=== PATIENT | female | born 1950 | race Caucasian/White ===

== ENCOUNTER 2023-07-15 13:02 | Outpatient (AMB) | payer MEDICARE, OTHER, SELFPAY ==
--- NOTE | 2023-07-15 13:03 | A.OFFPSYCH_ITS ---
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 She describes feeling on edge and waiting for the next bad thing to happen. She feels sad at times and grieves her daughters during holidays especially. She feels overwhelmed at times being the primary support to her living daughter who can be very impulsive; pt is also primary support to her sister who had a stroke and is very depressed. Pt feel strong obligation to call sister every day and often finds it takes a great deal of energy from her. She is compliant with meds and feel they are helping. She reports no side effects, less overwhelmed; No SI no HI. sleeping well with Trazodone but needs 200 mg to sleep through the night; She feels tired most days; she does have some intermittent shortness of breath due to her lung surgery; she had a low dose pet scan and has no cancer. She reports no dizziness; she is taking ativan prn about 1 times every two weeks if needed for panic attack if needed; she rarely has panic attacks and takes the ativan approximately once a month or less often; Denies SI or HI. She does have good support from her and synagogue. she attends a women support group on a regular basis; she takes walks with to cope with anxiety. Past Psychiatric History: 1-[facility] age 22 depression 1- PHP in 2019 referred by [facility], no SI x 2 weeks, 4 months ago depression increased severely, new onset of severe anxiety, started [facility] php and completed 20 days before she really felt much better; depression was very deep, Dr. Cleveland made a med change there, she reports she had passive SI for weeks before going, no active SI; depression symptoms included not getting out of bed, not eating, no interest, low energy, low motivation; severe anxiety with anxiety attacks Pt says she has always had depression her whole life; had a severe bout of post depression at age 22 and was hospitalized at [facility] [place]; ,no hospitalizations after that; lost her first child 21 yrs ago when her daughter in a MVA; She lost another daughter 2 yrs ago from an accidental overdose on heroin and fentanyl; her daughter Patsy of an opiate overdose on mother's day; her daughter had been doing well and in recovery and her was a shock; her was having open heart surgery at the same time and her older daughter was going through a divorce; pt reports she felt numb and probably didn't grieve; she lost 18 lbs in 3 months, 25 years on Prozac which worked well up until a few months ago; symptoms when very depression - not getting out of bed, no lunch with friends Panic attacks: Yes Agoraphobia: No Separation anxiety disorder: No Social phobia: No Specific phobia: No Hypochondriasis: No Body dysmorphic disorder: No Obsessive compulsive disorder: No Generalized anxiety: Yes Post traumatic stress disorder: Yes Acute stress disorder: No Previous psychiatric history: Yes Previous inpatient psychiatric hospitalization: Yes Other previous psychiatric treatment programs: partial hospital program History of suicidal ideation: Yes History of suicide attempt: No Medically hospitalized: No History of self injurious behavior: No History of violence: No Current/previous psychiatrist: elias Current/previous therapist: none Subjective Subjective Subjective Medication Compliance: Yes Side effects from medications: No Review of Systems Medical Review of Systems: unchanged Mental Status Exam Mental Status Exam Patient Appearance: Well Grooomed and Appropriate Patient Orientation: Person, Place, Time and Situation Level of Consciousness: Awake and Appropriate Patient Behavior: Appropriate and Talkative Mood Description: Anxious and Sad Affect Description: Constricted and Sad Patient Cognition Impaired: No Ability to Follow Directions: Excellent Speech Pattern: Clear and Coherent Memory Description: Intact Hallucinations: None Delusions: Not Present Thought Process: Intact and Goal Oriented Thought Content: positive for Intact and positive for Goal Oriented Judgement: Good Assessment and Plan Assessment & Plan (1) Generalized anxiety disorder: Code(s): F41.1 - Generalized anxiety disorder Plan pt continues to struggle with anxiety and grief plan trial of gabapentin 300mg tid prn reduce to bid if sedation Medications: New aripiprazole 2 mg PO DAILY 90 tabs 1RF escitalopram oxalate 20 mg PO DAILY 90 tabs 1RF lorazepam 0.5 mg PO BID PRN 60 tabs 3RF anxiety trazodone (2 x 100 mg) watch for over-sedation 180 tabs 1RF sleep bupropion HCl 300 mg PO DAILY 90 tabs 1RF gabapentin 300 mg PO TID 90 caps 3RF Counseling and coordination of Care Pt. Self Management counseling: Exercise, Light exposure, Maintenance-social rhythm, Mindfulness, Sleep hygiene, Behavior activation, General coping skills and Greif counseling Details-Self Mgmt counseling: continue to help patient process grief and connect to worry about her living oral ghter relaxation skills and CBT to reduce feeling of burden of caretaking Medication management counseling: Effectiveness, Side effects, Dosing range, Duration, Drug interaction and Adherence Diagnosis and Prognosis Counseling: Accuracy of diagnosis, Prognosis over time, Impact of diagnosis on life functions, Impact of family relationship, Problematic behaviors secondary to diagnosis and Adequacy of current interventions Details: I spent 45 minutes reviewing the record, seeing the patient and documenting in the medical record. Counseling provided to the patient/caregiver as outlined below. Addressed patient/caregiver concerns regarding current medication regime including effective adherence. Addressed patient/caregiver concerns regarding diagnosis and prognosis including accuracy of diagnosis, prognosis over time, impact of diagnosis. Addressed patient/caregiver concerns regarding impact of recent stressors. [facility] Medical History (Updated 07/18/23 @ 09:19 by Julia Parikh APRN) Lung cancer Social History: lives with ; has one adult daughter and cayla grandchild. Lost one daughter in 1998 from MVA. lost another daughter from accidental overdose on opiates in 2017. Substance History: none Trauma History: Lost one daughter Clover in 1998 from MVA. lost another daughter Patsy from accidental overdose on opiates in 2017. Coding Level of Care Code Est Pt Level 4 (57859) Therapy 30m w/E&M (73356) Diagnoses Generalized anxiety disorder F41.1
== END 2023-07-15 13:43 | disposition home or self-care (01) ==
LOC: HO.HOP 13:02
PROVIDERS: PCP Internal Medicine; Visit Provider Clinical Nurse Specialist Psychiatric/Mental Health
DX: F41.1 Generalized anxiety disorder (principal)
CPT/HCPCS: 90833; 99214

== ENCOUNTER → 2023-07-15 13:02 | Outpatient (BNVA) | payer MEDICARE, OTHER, SELFPAY | PROVIDERS: PCP Internal Medicine; Visit Provider Clinical Nurse Specialist Psychiatric/Mental Health | DX: F41.1 Generalized anxiety disorder (principal); F43.21 Adjustment disorder with depressed mood | CPT/HCPCS: 99212 ==

== ENCOUNTER 2023-09-13 12:34 | Outpatient (AMB) | payer MEDICARE, OTHER, SELFPAY ==
--- NOTE | 2023-09-13 11:38 | MHC.OFFVISPS ---
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 Required: No Allergies No Known Allergies Allergy (Verified 07/15/23 15:16) Medication List - Last Reconciled 09/13/23 by Julia Parikh APRN aripiprazole 2 mg PO DAILY atorvastatin 80 mg PO QPM bupropion HCl XL 300 mg PO DAILY escitalopram oxalate 20 mg PO DAILY gabapentin 300 mg PO TID levothyroxine 88 mcg PO DAILY lorazepam 0.5 mg PO BID PRN trazodone watch for over-sedation valsartan-hydrochlorothiazide 320-25 mg 1 tab PO DAILY HPI- Psychiatric Chief Complaint: depression, anxiety, Grief at loss of child HPI Narrative: pt reports mood fair; she is sad at this time of year; feels grief come and go; she is coping well; she enjoys her family and christian supports; she does worry about her sister and her daughter who have struggles. pt taking meds as prescribed; does not take ativan often but feels it helps if she feel anxiety or panic attck. she is sleeping well with trazodone. able to enjoy activities. no SI or HI Past Psychiatric History: 1-[facility] age 22 depression 1- PHP in 2019 referred by [facility], no SI x 2 weeks, 4 months ago depression increased severely, new onset of severe anxiety, started [facility] php and completed 20 days before she really felt much better; depression was very deep, Dr. Langley made a med change there, she reports she had passive SI for weeks before going, no active SI; depression symptoms included not getting out of bed, not eating, no interest, low energy, low motivation; severe anxiety with anxiety attacks Pt says she has always had depression her whole life; had a severe bout of post depression at age 22 and [place] [facility] ,no hospitalizations after that; lost her first child 21 yrs ago when her daughter in a MVA; She lost another daughter 2 yrs ago from an accidental overdose on heroin and fentanyl; her daughter Patsy of an opiate overdose on mother's day in 2013; her daughter had been doing well and in recovery and her was a shock; her was having open heart surgery at the same time and her older daughter was going through a divorce; pt reports she felt numb and probably didn't grieve; she lost 18 lbs in 3 months, 25 years on Prozac which worked well up until a few months ago; symptoms when very depression - not getting out of bed, no lunch with friends Subjective Subjective Subjective Medication Compliance: Yes Side effects from medications: No Review of Systems Medical Review of Systems: unchanged Mental Status Exam Mental Status Exam Patient Appearance: Well Grooomed and Appropriate Patient Orientation: Person, Place, Time and Situation Level of Consciousness: Awake Patient Behavior: Appropriate Mood Description: Sad Affect Description: Sad Patient Cognition Impaired: No Ability to Follow Directions: Good Speech Pattern: Clear Memory Description: Intact Hallucinations: None Delusions: Not Present Thought Process: Intact Thought Content: positive for Intact Judgement: Good Assessment and Plan Assessment & Plan (1) Grief at loss of child: Code(s): F43.21 - Adjustment disorder with depressed mood; Z63.4 - Disappearance and of family member (2) Major depression, recurrent: Status: Acute Code(s): F33.9 - Major depressive disorder, recurrent, unspecified (3) STEVE (generalized anxiety disorder): Status: Acute Code(s): F41.1 - Generalized anxiety disorder Plan continue medication and therapy Medications: Refilled aripiprazole 2 mg PO DAILY 90 tabs 1RF escitalopram oxalate 20 mg PO DAILY 90 tabs 1RF bupropion HCl XL 300 mg PO DAILY 90 tabs 1RF gabapentin 300 mg PO TID 90 caps 3RF lorazepam 0.5 mg PO BID PRN 60 tabs 3RF anxiety Counseling and coordination of Care Pt. Self Management counseling: Exercise, Maintenance-social rhythm, Sleep hygiene, Behavior activation, General coping skills and Greif counseling Medication management counseling: Effectiveness, Side effects, Dosing range, Duration, Drug interaction and Adherence Diagnosis and Prognosis Counseling: Accuracy of diagnosis, Prognosis over time, Impact of diagnosis on life functions, Impact of family relationship, Problematic behaviors secondary to diagnosis and Adequacy of current interventions Details: I spent 45 minutes reviewing the record, seeing the patient and documenting in the medical record. Counseling provided to the patient/caregiver as outlined below. Addressed patient/caregiver concerns regarding current medication regime including effective adherence. Addressed patient/caregiver concerns regarding diagnosis and prognosis including accuracy of diagnosis, prognosis over time, impact of diagnosis. Addressed patient/caregiver concerns regarding impact of recent stressors. [facility] Medical History (Updated 09/13/23 @ 14:10 by Julia Parikh APRN) Lung cancer Social History: lives with ; has one adult daughter and two grandchildren. Lost one daughter in 1998 from MVA. lost another daughter from accidental overdose on opiates in 2017. Substance History: none Trauma History: Lost one daughter Clover in 1998 from MVA. lost another daughter Patsy from accidental overdose on opiates in 2017. Coding Level of Care Code Est Pt Level 4 (55318) Therapy 30m w/E&M (12201) Diagnoses Grief at loss of child F43.21; Z63.4 Major depression, recurrent F33.9 STEVE (generalized anxiety disorder) F41.1 Comment CBT and supportive psychotherapy to address grief and distress
== END 2023-09-13 13:23 | disposition home or self-care (01) ==
LOC: HO.HOP 12:34
PROVIDERS: PCP Internal Medicine; Visit Provider Clinical Nurse Specialist Psychiatric/Mental Health
DX: F43.21 Adjustment disorder with depressed mood (principal); Z63.4 Disappearance and death of family member; F33.9 Major depressive disorder, recurrent, unspecified; F41.1 Generalized anxiety disorder
CPT/HCPCS: 90833; 99214

== ENCOUNTER → 2023-09-13 12:34 | Outpatient (BNVA) | payer MEDICARE, OTHER, SELFPAY | PROVIDERS: PCP Internal Medicine; Visit Provider Clinical Nurse Specialist Psychiatric/Mental Health | DX: F43.21 Adjustment disorder with depressed mood (principal); F33.9 Major depressive disorder, recurrent, unspecified; F41.1 Generalized anxiety disorder; Z63.4 Disappearance and death of family member; Z79.899 Other long term (current) drug therapy | CPT/HCPCS: 99212 ==

== ENCOUNTER 2023-11-18 13:30 | Outpatient (AMB) | payer MEDICARE, OTHER, SELFPAY ==
--- NOTE | 2023-11-18 14:14 | A.OFFPSYCH_ITS ---
Intake Intake Visit Reasons: depression Panel Saw Operator Required: No Allergies No Known Allergies Allergy (Verified 07/15/23 15:16) Medication List - Last Reconciled 11/18/23 by Julia Parikh APRN aripiprazole 2 mg PO DAILY atorvastatin 80 mg PO QPM bupropion HCl XL 300 mg PO DAILY escitalopram oxalate 20 mg PO DAILY gabapentin 300 mg PO TID levothyroxine 88 mcg PO DAILY lorazepam 0.5 mg PO BID PRN trazodone 100 mg orally watch for over-sedation; take 1- 2 tablets as needed for sleep PRN; valsartan-hydrochlorothiazide 320-25 mg 1 tab PO DAILY HPI- Psychiatric Chief Complaint: depression HPI Narrative: Pt stable; mood fair- good and anxiety mild moderate; PHQ9 = 6 and GAD7 is 6. Pt is compliant with medications; she has many stressors: sister is severely depressed. He daughter struggles with mental health issuses; pt grieves her daughter who of accidental overdose in 2013. Pt talked about missng her; tlked about spending time with her daughter's best friend who still tends to her grave bring rogers and plants. pt continues to process her emotions and grief. no SI or HI. Past Psychiatric History: 1-[facility] age 22 depression 1- PHP in 2019 referred by [facility], no SI x 2 weeks, 4 months ago depression increased severely, new onset of severe anxiety, started [facility] php and completed 20 days before she really felt much better; depression was very deep, Dr. Langley made a med change there, she reports she had passive SI for weeks before going, no active SI; depression symptoms included not getting out of bed, not eating, no interest, low energy, low motivation; severe anxiety with anxiety attacks Pt says she has always had depression her whole life; had a severe bout of post depression at age 22 and was hospitalized at [facility] [place] [place]; ,no hospitalizations after that; lost her first child 21 yrs ago when her daughter in a MVA; She lost another daughter 2 yrs ago from an accidental overdose on heroin and fentanyl; her daughter Patsy of an opiate overdose on mother's day in 2013; her daughter had been doing well and in recovery and her was a shock; her was having open heart surgery at the same time and her older daughter was going through a divorce; pt reports she felt numb and probably didn't grieve; she lost 18 lbs in 3 months, 25 years on Prozac which worked well up until a few months ago; symptoms when very depression - not getting out of bed, no lunch with friends Subjective Subjective Subjective Medication Compliance: Yes Side effects from medications: No Review of Systems Medical Review of Systems: unchanged Mental Status Exam Mental Status Exam Patient Appearance: Well Grooomed and Appropriate Patient Orientation: Person, Place, Time and Situation Level of Consciousness: Awake and Alert Patient Behavior: Appropriate and Good Eye Contact Mood Description: Calm and Sad Affect Description: Calm and Sad Patient Cognition Impaired: No Ability to Follow Directions: Good Speech Pattern: Clear Hallucinations: None Delusions: Not Present Thought Process: Intact Thought Content: positive for Intact Judgement: Good Assessment and Plan Assessment & Plan (1) STEVE (generalized anxiety disorder): Status: Acute Code(s): F41.1 - Generalized anxiety disorder (2) Major depression, recurrent: Status: Acute Qualifiers: Active/Remission status: in partial remission Qualified Code(s): F33.41 - Major depressive disorder, recurrent, in partial remission Code(s): F33.9 - Major depressive disorder, recurrent, unspecified (3) Complicated grief: Status: Acute Code(s): F43.21 - Adjustment disorder with depressed mood Plan continue current medications no refills due return in 3 months Counseling and coordination of Care Pt. Self Management counseling: Exercise, Maintenance-social rhythm, Mindfulness, Sleep hygiene and Greif counseling Medication management counseling: Effectiveness, Side effects and Adherence Diagnosis and Prognosis Counseling: Accuracy of diagnosis, Prognosis over time and Adequacy of current interventions Details: I spent 50 minutes reviewing the record, seeing the patient and documenting in the medical record. Counseling provided to the patient/caregiver as outlined below. Addressed patient/caregiver concerns regarding current medication regime including effective adherence. Addressed patient/caregiver concerns regarding diagnosis and prognosis including accuracy of diagnosis, prognosis over time, impact of diagnosis. Addressed patient/caregiver concerns regarding impact of recent stressors. [facility] Medical History (Updated 11/18/23 @ 14:19 by Julia Parikh APRN) Lung cancer Social History: lives with ; has one adult daughter and two grandchildren. Lost one daughter in 1998 from MVA. lost another daughter from a ccidental overdose on opiates in 2017. Substance History: none Trauma History: Lost one daughter Clover in 1998 from MVA. lost another daughter Patsy from accidental overdose on opiates in 2017. Coding Level of Care Code Est Pt Level 4 (27948) Therapy 30m w/E&M (01907) Diagnoses STEVE (generalized anxiety disorder) F41.1 Recurrent major depressive disorder, in partial remission F33.41 Active/Remission status: in partial remission Complicated grief F43.21
== END 2023-11-18 14:40 | disposition home or self-care (01) ==
LOC: HO.HOP 13:30
PROVIDERS: PCP Internal Medicine; Visit Provider Clinical Nurse Specialist Psychiatric/Mental Health
DX: F41.1 Generalized anxiety disorder (principal); F33.41 Major depressive disorder, recurrent, in partial remission; F43.21 Adjustment disorder with depressed mood
CPT/HCPCS: 90833; 99214

== ENCOUNTER → 2023-11-18 13:30 | Outpatient (BNVA) | payer MEDICARE, OTHER, SELFPAY | PROVIDERS: PCP Internal Medicine; Visit Provider Clinical Nurse Specialist Psychiatric/Mental Health | DX: F41.1 Generalized anxiety disorder (principal); F33.41 Major depressive disorder, recurrent, in partial remission; F43.21 Adjustment disorder with depressed mood | CPT/HCPCS: 99212 ==

== ENCOUNTER 2024-02-14 14:41 | Outpatient (AMB) | payer MEDICARE, OTHER, SELFPAY ==
--- NOTE | 2024-02-14 15:06 | A.OFFPSYCH_ITS ---
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: No Allergies No Known Allergies Allergy (Verified 07/15/23 15:16) Medication List - Last Reconciled 02/14/24 by Julia Parikh APRN aripiprazole 2 mg PO DAILY atorvastatin 80 mg PO QPM bupropion HCl XL 300 mg PO DAILY escitalopram oxalate 20 mg PO DAILY gabapentin 300 mg PO TID levothyroxine 88 mcg PO DAILY lorazepam 0.5 mg PO BID PRN trazodone 100 mg orally watch for over-sedation; take 1- 2 tablets as needed for sleep PRN; valsartan-hydrochlorothiazide 320-25 mg 1 tab PO DAILY HPI- Psychiatric Chief Complaint: depression HPI Narrative: Patient reports overall she is stable her PHQ-9 equals 5 her Genralized Anxiety Disorder-7 equals 6 she reports she has 2-3 days a week where she feels down does not feel like doing anything wants to stay in her pajamas. She reports the trigger is feeling the responsibility of taking care of her family and worrying about her sister who has severe depression and needs constant help and also worrying about her daughter and her 2 grandchildren who also need a lot of support. She is hard on herself she can be critical of herself she is attending [employer] support group she has friends she has supportive she is sleeping she recently had a follow-up with her primary care and she is medically stable no side effects from medication Past Psychiatric History: 1-[facility] age 22 depression 1- PHP in 2019 referred by [facility], no SI x 2 weeks, 4 months ago depression increased severely, new onset of severe anxiety, started [facility] php and completed 20 days before she really felt much better; depression was very deep, Dr. Langley made a med change there, she reports she had passive SI for weeks before going, no active SI; depression symptoms included not getting out of bed, not eating, no interest, low energy, low motivation; severe anxiety with anxiety attacks Pt says she has always had depression her whole life; had a severe bout of post depression at age 22 and [place] [facility] [place]izations after [place]; lost her first child 21 yrs ago when her daughter in a MVA; She lost another daughter 2 yrs ago from an accidental overdose on heroin and fentanyl; her daughter Patsy of an opiate overdose on mother's day in 2013; her daughter had been doing well and in recovery and her was a shock; her was having open heart surgery at the same time and her older daughter was going through a divorce; pt reports she felt numb and probably didn't grieve; she lost 18 lbs in 3 months, 25 years on Prozac which worked well up until a few months ago; symptoms when very depression - not getting out of bed, no lunch with friends Subjective Subjective Subjective Medication Compliance: Yes Side effects from medications: No Review of Systems Medical Review of Systems: unchanged Mental Status Exam Mental Status Exam Patient Appearance: Well Grooomed Patient Orientation: Person, Place, Time and Situation Level of Consciousness: Awake and Appropriate Patient Behavior: Appropriate and Talkative Mood Description: Anxious and Sad Affect Description: Anxious and Sad Patient Cognition Impaired: No Ability to Follow Directions: Good Speech Pattern: Clear Memory Description: Intact Hallucinations: None Thought Process: Intact and Rumination Thought Content: positive for Intact and positive for Preoccupation Judgement: Fair Assessment and Plan Assessment & Plan (1) Complicated grief: Status: Acute Code(s): F43.21 - Adjustment disorder with depressed mood (2) STEVE (generalized anxiety disorder): Status: Acute Code(s): F41.1 - Generalized anxiety disorder (3) Major depression, recurrent: Status: Acute Qualifiers: Active/Remission status: in partial remission Qualified Code(s): F33.41 - Major depressive disorder, recurrent, in partial remission Code(s): F33.9 - Major depressive disorder, recurrent, unspecified Plan Continue medication Return in 3 months Medications: Refilled aripiprazole 2 mg PO DAILY 90 tabs 1RF bupropion HCl XL 300 mg PO DAILY 90 tabs 1RF lorazepam 0.5 mg PO BID PRN 60 tabs 3RF anxiety escitalopram oxalate 20 mg PO DAILY 90 tabs 1RF gabapentin 300 mg PO TID 90 caps 3RF trazodone 100 mg orally watch for over-sedation; take 1- 2 tablets as needed for sleep PRN; 180 tabs 1RF sleep Counseling and coordination of Care Pt. Self Management counseling: Mod caffeine/ETOH intake, Sleep hygiene, Behavior activation, General coping skills and Greif counseling Medication management counseling: Effectiveness, Side effects, Dosing range, Duration, Drug interaction and Adherence Diagnosis and Prognosis Counseling: Accuracy of diagnosis, Prognosis over time, Impact of diagnosis on life functions, Impact of family relationship, Problematic behaviors secondary to diagnosis and Adequacy of current interventions Details: I spent 45 minutes reviewing the record, seeing the patient and documenting in the medical record. Counseling provided to the patient/caregiver as outlined below. Addressed patient/caregiver concerns regarding current medication regime including effective adherence. Addressed patient/caregiver concerns regarding diagnosis and prognosis including accuracy of diagnosis, prognosis over time, impact of diagnosis. Addressed patient/caregiver concerns regarding impact of recent stressors. [facility] Medical History (Updated 11/18/23 @ 14:19 by Julia Parikh APRN) Lung cancer Social History: lives with ; has one adult daughter and two grandchildren. Lost one daughter in 1998 from MVA. lost another daughter from accidental overdose on opiates in 2017. Substance History: none Trauma History: Lost one daughter Clover in 1998 from MVA. lost another daughter Patsy from accidental overdose on opiates in 2016. Coding Level of Care Code Est Pt Level 4 (66840) Therapy 30m w/E&M (15083) Diagnoses Complicated grief F43.21 STEVE (generalized anxiety disorder) F41.1 Recurrent major depressive disorder, in partial remission F33.41 Active/Remission status: in partial remission
== END 2024-02-14 15:48 | disposition home or self-care (01) ==
LOC: HO.HOP 14:41
PROVIDERS: PCP Internal Medicine; Visit Provider Clinical Nurse Specialist Psychiatric/Mental Health
DX: F43.21 Adjustment disorder with depressed mood (principal); F41.1 Generalized anxiety disorder; F33.41 Major depressive disorder, recurrent, in partial remission
CPT/HCPCS: 90833; 99214

== ENCOUNTER → 2024-02-14 14:41 | Outpatient (BNVA) | payer MEDICARE, OTHER, SELFPAY | PROVIDERS: PCP Internal Medicine; Visit Provider Clinical Nurse Specialist Psychiatric/Mental Health | DX: F43.21 Adjustment disorder with depressed mood (principal); F41.1 Generalized anxiety disorder; F33.41 Major depressive disorder, recurrent, in partial remission | CPT/HCPCS: 99212 ==

== ENCOUNTER 2024-05-15 14:58 | Outpatient (AMB) | payer MEDICARE, OTHER, SELFPAY ==
--- NOTE | 2024-05-15 15:04 | MHC.OFFVISPS ---
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: No Allergies No Known Allergies Allergy (Verified 07/15/23 15:16) Medication List - Last Reconciled 05/15/24 by Julia Parikh APRN aripiprazole 2 mg PO DAILY atorvastatin 80 mg PO QPM bupropion HCl XL 300 mg PO DAILY escitalopram oxalate 20 mg PO DAILY gabapentin 300 mg PO TID levothyroxine 88 mcg PO DAILY lorazepam 0.5 mg PO BID PRN trazodone watch for over-sedation; take 1- 2 tablets daily at BEDTIME as needed for sleep valsartan-hydrochlorothiazide 320-25 mg 1 tab PO DAILY HPI- Psychiatric Chief Complaint: depression HPI Narrative: depression worsened; pt is sad and tearful regarding sister who had 2 falls near [facility] and now is in rehab . Pt thinks that sister had a stroke because she is more non-verbal. Pt feels devastated and grief. she feels overwelmed trying to help her sister but unable to pay her bills or manage her affairs; she feels strong obligation to do so but isn't able to. she is anxious and worried every day. she has lost 10#. she is getting some support from [employer] and family. she is compliant with meds. Past Psychiatric History: 1-[facility] age 22 depression 1- PHP in 2019 referred by [facility], no SI x 2 weeks, 4 months ago depression increased severely, new onset of severe anxiety, started [facility] php and completed 20 days before she really felt much better; depression was very deep, Dr. Langley made a med change there, she reports she had passive SI for weeks before going, no active SI; depression symptoms included not getting out of bed, not eating, no interest, low energy, low motivation; severe anxiety with anxiety attacks Pt says she has always had depression her whole life; had a severe bout of post depression at age 22 and was hospitalized [place] [facility] [place]; ,no hospitalizations after that; lost her first child 21 yrs ago when her daughter in a MVA; She lost another daughter 2 yrs ago from an accidental overdose on heroin and fentanyl; her daughter Patsy of an opiate overdose on mother's day in 2013; her daughter had been doing well and in recovery and her was a shock; her was having open heart surgery at the same time and her older daughter was going through a divorce; pt reports she felt numb and probably didn't grieve; she lost 18 lbs in 3 months, 25 years on Prozac which worked well up until a few months ago; symptoms when very depression - not getting out of bed, no lunch with friends Subjective Subjective Subjective Medication Compliance: Yes Side effects from medications: No Review of Systems Medical Review of Systems: unchanged Mental Status Exam Mental Status Exam Patient Appearance: Well Grooomed and Appropriate Patient Orientation: Person, Place, Time and Situation Level of Consciousness: Awake Patient Behavior: Appropriate, Talkative, Cooperative, Anxious and Crying Mood Description: Anxious and Sad Affect Description: Anxious and Sad Patient Cognition Impaired: No Ability to Follow Directions: Good Speech Pattern: Clear and Appropriate Memory Description: Intact Hallucinations: None Delusions: Not Present Thought Process: Intact and Goal Oriented Thought Content: positive for Intact and positive for Goal Oriented Judgement: Good Assessment and Plan Assessment & Plan (1) Complicated grief: Status: Acute Code(s): F43.21 - Adjustment disorder with depressed mood (2) STEVE (generalized anxiety disorder): Status: Acute Code(s): F41.1 - Generalized anxiety disorder (3) Major depression, recurrent: Status: Acute Qualifiers: Active/Remission status: in partial remission Qualified Code(s): F33.41 - Major depressive disorder, recurrent, in partial remission Code(s): F33.9 - Major depressive disorder, recurrent, unspecified Medications: Changed From lorazepam 0.5 mg PO BID PRN 60 tabs 3RF anxiety To lorazepam 0.5 mg PO TID PRN 90 tabs 3RF anxiety Refilled gabapentin 300 mg PO TID 90 caps 3RF aripiprazole 2 mg PO DAILY 90 tabs 1RF bupropion HCl XL 300 mg PO DAILY 90 tabs 1RF escitalopram oxalate 20 mg PO DAILY 90 tabs 1RF trazodone watch for over-sedation; take 1- 2 tablets daily at BEDTIME as needed for sleep 180 tabs 1RF sleep Orders: Orders Comprehensive Met. 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 Self Management counseling: Greif counseling and Problem solving Medication management counseling: Effectiveness, Side effects, Dosing range, Duration and Drug interaction Diagnosis and Prognosis Counseling: Accuracy of diagnosis, Prognosis over time, Impact of diagnosis on life functions, Impact of family relationship, Problematic behaviors secondary to diagnosis and Adequacy of current interventions Details: I spent [50] minutes reviewing the record, seeing the patient and documenting in the medical record. Counseling provided to the patient/caregiver as outlined below. Addressed patient/caregiver concerns regarding current medication regime including effective adherence. Addressed patient/caregiver concerns regarding diagnosis and prognosis including accuracy of diagnosis, prognosis over time, impact of diagnosis. Addressed patient/caregiver concerns regarding impact of recent stressors. [facility] Medical History (Updated 05/15/24 @ 15:28 by Julia Parikh APRN) Lung cancer Social History: lives with ; has one adult daughter and two grandchildren. Lost one daughter in 1998 from MVA. lost another daughter from accidental overdose on opiates in 2017. Substance History: none Trauma History: Lost one daughter Clover in 1998 from MVA. lost another daughter Patsy from accidental overdose on opiates in 2017. Coding Level of Care Code Est Pt Level 4 (42512) Therapy 30m w/E&M (08436) Diagnoses Complicated grief F43.21 STEVE (generalized anxiety disorder) F41.1 Recurrent major depressive disorder, in partial remission F33.41 Active/Remission status: in partial remission
--- OUTSIDE RECORDS SUMMARY | 2024-05-15 17:29 | XMS_ITS | Clinical Summary ---
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 Ordering Clinician Indication Dosage Frequency Signature (SIG) Comments Components acetaminoph en 325 mg tablet 11-28 00:00: 00 Yes [id number] 3 tablet EVERY 6 HOURS 3 tablet EVERY 6 HOURS (route: oral) Med Classific ation: Analgesic , Anti-infl ammatory or Antipyret ic aripiprazol e 2 mg tablet 11-28 00:00: 00 Yes [id number] 1 tablet DAILY 1 tablet DAILY (route: oral) Med Classific ation: Central Nervous System Agents atorvastati n 80 mg tablet 11-28 00:00: 00 Yes [id number] 1 tablet DAILY 1 tablet DAILY (route: oral) Med Classific ation: Cardiovas cular Therapy Agents bupropion HCl 150 mg tablet,12 hr sustained-r elease(smok ing deterrent) 11-28 00:00: 00 Yes [id number] 1 tablet DAILY 1 tablet DAILY (route: oral) Med Classific ation: Chemical Dependenc y, Agents to Treat cephalexin 500 mg tablet 11-28 00:00: 00 Yes [id number] 1 tablet 2 TIMES DAILY 1 tablet 2 TIMES DAILY (route: oral) Med Classific ation: Anti-Infe ctive Agents docusate sodium 100 mg tablet 11-28 00:00: 00 Yes [id number] 1 tablet 2 TIMES DAILY 1 tablet 2 TIMES DAILY (route: oral) Med Classific ation: Gastroint estinal Therapy Agents escitalopra m 20 mg tablet 11-28 00:00: 00 Yes [id number] 1 tablet DAILY 1 tablet DAILY (route: oral) Med Classific ation: Central Nervous System Agents gabapentin 300 mg capsule 11-28 00:00: 00 Yes [id number] 1 capsule 4 TIMES DAILY 1 capsule 4 TIMES DAILY (route: oral) Med Classific ation: Central Nervous System Agents levothyroxi ne 88 mcg tablet 11-28 00:00: 00 Yes [id number] 1 tablet DAILY 1 tablet DAILY (route: oral) Med Classific ation: Endocrine oxycodone 5 mg tablet 11-28 00:00: 00 Yes [id number] 1 tablet EVERY 4 HOURS 1 tablet EVERY 4 HOURS (route: oral) Med Classific ation: Analgesic , Anti-infl ammatory or Antipyret ic sennosides 8.6 mg tablet 11-28 00:00: 00 Yes [id number] 2 tablet BEDTIME 2 tablet BEDTIME (route: oral) Med Classific ation: Gastroint estinal Therapy Agents trazodone 100 mg tablet 11-28 00:00: 00 Yes [id number] 1 tablet BEDTIME 1 tablet BEDTIME (route: oral) Med Classific ation: Central Nervous System Agents valsartan 320 mg-hydrochl orothiazide 25 mg tablet 11-28 00:00: 00 Yes [id number] 1 tablet DAILY 1 tablet DAILY (route: oral) Med Classific ation: Cardiovas cular Therapy Agents Vital Signs Vital Name Observation Time Observation Value Commen ts Temperature 2021-12-04 12:24:00.000 98.9 [degF] Temperature 2021-11-25 12:07:00.000 99.5 [degF] Temperature 2021-11-23 11:00:00.000 97.8 [degF] BMI (%) 2021-11-22 23:45:30.000 23 kg/m2 Height 2021-11-22 23:44:31.000 62 [in_us] Pulse 2021-12-04 12:24:00.000 78 /min Pulse 2021-11-25 12:07:00.000 84 /min Pulse 2021-11-23 11:00:00.000 80 /min O2 Saturation (%) 2021-12-04 12:24:00.000 97 % O2 Saturation (%) 2021-11-25 12:07:00.000 97 % Respirations 2021-12-04 12:24:00.000 20 /min Respirations 2021-11-25 12:07:00.000 20 /min Respirations 2021-11-23 11:00:00.000 18 /min Weight (lbs) 2021-12-04 12:24:00.000 129 [lb_av] Weight (lbs) 2021-11-22 23:45:30.000 131 [lb_av] Systolic Blood Pressure 2021-12-04 12:24:00.000 136 mm [Hg] Systolic Blood Pressure 2021-11-25 12:07:00.000 102 mm [Hg] Systolic Blood Pressure 2021-11-23 11:00:00.000 142 mm [Hg] Diastolic Blood Pressure 2021-12-04 12:24:00.000 80 mm [Hg] Diastolic Blood Pressure 2021-11-25 12:07:00.000 64 mm [Hg] Diastolic Blood Pressure 2021-11-23 11:00:00.000 86 mm [Hg] Plan of Treatment Planned Activity Planned Date Details Comments Future Scheduled Test SKILLED NU RSE TO EVALUATE PATIENT, IDENTIFY PRIMARY AND CO-MORBID CONDITIONS CODED PER CODING GUIDELINES, AND DEVELOP PATIENT SPECIFIC PLAN OF CARE THAT INCLUDES PATIENT GOAL FOR HOME HEALTH. CLINICAL SUMMARY (SOC/CHUCK/RECERT, 10 DAY, 60 DAY) THE PATIENT IS RECEIVING HOMECARE DUE TO NEW ONSET/EXACERBATION OF: CANCER OF RIGHT LUNG RECENT HOSPITALIZATION/INPATIENT ADMISSION RELATED TO: HAD RESECTION WHICH TAKE LOBECTOMY,28 FR STRIGHT CHEST TUBE WAS PLACED. DEVELOPED CHANTELLE DURING HOSPITAL STAY, HAS RESOLVED. PATIENT WAS DISCHARGED HOME WITH INDWELLING CHEST TUBE. CHEST TUBE IS CONNCTED TO MINI ATRUM DEVICE. NEW OR CHANGED MEDICATIONS PERTINENT TO THE PLAN OF CARE: CEPHALEXIN 500MG TWICE A DAY FOR 7DAYS FOR INDWELLING CHEST TUBE PROPHYLAXIS, OXYCODONE FOR PAIN EVERY FOUR HRS, TYLENOL, SENNOSIDES, AND DOCUSATE SODIUM. PATIENT LIVING SITUATION/CAREGIVER STATUS: LIVE WITH WHO HELPS WITH ADLS, SHOPPING. HAS DOG AND CAT. RECENT FALLS: DENIED FALL SKILLED TEACHING AND TRAINING, OBSERVATION AND ASSESSMENT, AND/OR TREATMENTS THAT REQUIRE SKILLED CARE: WOUND CARE :WASH WITH WATER SOAP, PAT DRY, PLACE NON WOVEN DRAIN SPONGES 4X4 AND SECURE WITH TAPE. MONITOR INCISION FOR SIGNS AND SYMPTOMS OF INFECTION, SWELLING OPEN AREA, OR DRAINAGE, MONITOR INCREASE AIR UNDER SKIN AROUND INCISION( AIR FEEL LIKE RICE KRISPIES)., MONITOR CHEST PAIN, ABDOMEN PAIN AND N/V. MED PRE-FILL, ASSESSED AND MANAGE OTHER CHRONIC DISEASES. ADDITIONAL DISCIPLINES NEEDED OR DECLINED ORDERED SERVICES: DECLINED OTHER SERVICES. [code = SKILLED NURSE TO EVALUATE PATIENT, IDENTIFY PRIMARY AND CO-MORBID CONDITIONS CODED PER CODING GUIDELINES, AND DEVELOP PATIENT SPECIFIC PLAN OF CARE THAT INCLUDES PATIENT GOAL FOR HOME HEALTH. CLINICAL SUMMARY (SOC/CHUCK/RECERT, 10 DAY, 60 DAY) THE PATIENT IS RECEIVING HOMECARE DUE TO NEW ONSET/EXACERBATION OF: CANCER OF RIGHT LUNG RECENT HOSPITALIZATION/INPATIENT ADMISSION RELATED TO: HAD RESECTION WHICH TAKE LOBECTOMY,28 FR STRIGHT CHEST TUBE WAS PLACED. DEVELOPED CHANTELLE DURING HOSPITAL STAY, HAS RESOLVED. PATIENT WAS DISCHARGED HOME WITH INDWELLING CHEST TUBE. CHEST TUBE IS CONNCTED TO MINI ATRUM DEVICE. NEW OR CHANGED MEDICATIONS PERTINENT TO THE PLAN OF CARE: CEPHALEXIN 500MG TWICE A DAY FOR 7DAYS FOR INDWELLING CHEST TUBE PROPHYLAXIS, OXYCODONE FOR PAIN EVERY FOUR HRS, TYLENOL, SENNOSIDES, AND DOCUSATE SODIUM. PATIENT LIVING SITUATION/CAREGIVER STATUS: LIVE WITH WHO HELPS WITH ADLS, SHOPPING. HAS DOG AND CAT. RECENT FALLS: DENIED FALL SKILLED TEACHING AND TRAINING, OBSERVATION AND ASSESSMENT, AND/OR TREATMENTS THAT REQUIRE SKILLED CARE: WOUND CARE :WASH WITH WATER SOAP, PAT DRY, PLACE NON WOVEN DRAIN SPONGES 4X4 AND SECURE WITH TAPE. MONITOR INCISION FOR SIGNS AND SYMPTOMS OF INFECTION, SWELLING OPEN AREA, OR DRAINAGE, MONITOR INCREASE AIR UNDER SKIN AROUND INCISION( AIR FEEL LIKE RICE KRISPIES)., MONITOR CHEST PAIN, ABDOMEN PAIN AND N/V. MED PRE-FILL, ASSESSED AND MANAGE OTHER CHRONIC DISEASES. ADDITIONAL DISCIPLINES NEEDED OR DECLINED ORDERED SERVICES: DECLINED OTHER SERVICES. ] Future Scheduled Test SKILLED NU RSE TO PREFILL MEDIPLANNER AND INSTRUCT PATIENT/CAREGIVER ON FILLING MEDIPLANNER DEVICE WEEKLY. [code = SKILLED NURSE TO PREFILL MEDIPLANNER AND INSTRUCT PATIENT/CAREGIVER ON FILLING MEDIPLANNER DEVICE WEEKLY.] Future Scheduled Test SKILLED NU RSE TO PERFORM HOME SAFETY AND FALL ASSESSMENT AND PROVIDE INSTRUCTION TO IMPLEMENT HOME SAFETY AND FALL PREVENTION STRATEGIES. [code = SKILLED NURSE TO PERFORM HOME SAFETY AND FALL ASSESSMENT AND PROVIDE INSTRUCTION TO IMPLEMENT HOME SAFETY AND FALL PREVENTION STRATEGIES.] Future Scheduled Test SKILLED NU RSE TO PROVIDE ASSESSMENT AND TEACHING/REINFORCEMENT OF MANAGEMENT OF DEPRESSION INCLUDING DISEASE PROCESS, MEDICATION MANAGEMENT, COPING SKILLS AND IDENTIFY CHANGES ASSOCIATED WITH DEPRESSIVE DISORDERS FOR EARLY INTERVENTION. [code = SKILLED NURSE TO PROVIDE ASSESSMENT AND TEACHING/REINFORCEMENT OF MANAGEMENT OF DEPRESSION INCLUDING DISEASE PROCESS, MEDICATION MANAGEMENT, COPING SKILLS AND IDENTIFY CHANGES ASSOCIATED WITH DEPRESSIVE DISORDERS FOR EARLY INTERVENTION.] Future Scheduled Test SKILLED NU RSE FOR O/A, TEACHING AND MANAGEMENT OF DRAIN TO RIGHT SIDE CHEST, SKILLED NURSE TO PROVIDE/INSTRUCT ON DRAIN CARE. PATIENT HAS 28FR CHEST TUBE CONNECTED TO MINI ATRUM DEVICE. SKILLED NURSE TO INSTRUCT PATIENT/CAREGIVER ON EMPTYING DRAIN DAILY AND TO DOCUMENT COLOR AND AMOUNT OF DRAINAGE. SKILLED NURSE TO EDUCATE PATIENT/CAREGIVER TO MONITOR FOR SIGNS AND SYMPTOMS OF INFECTION TO REPORT. IF CHESTTUBE FALL OUT TO PLACE HAND ON THE SITE,OR A NEW DRESSING AND CALL 911, IF PNEUMOSTAT FALL OFF, THE END SHOULD RECONNECT TO DEVICE AND CALL THORACIC OFFICE OR 911. AND WATCH OUT FOR FOR SIGNS AND SYMPTOMS OF INFECTION , AIR LEAK FROM PNEUMOSTS. [code = SKILLED NURSE FOR O/A, TEACHING AND MANAGEMENT OF DRAIN TO RIGHT SIDE CHEST, SKILLED NURSE TO PROVIDE/INSTRUCT ON DRAIN CARE. PATIENT HAS 28FR CHEST TUBE CONNECTED TO MINI ATRUM DEVICE. SKILLED NURSE TO INSTRUCT PATIENT/CAREGIVER ON EMPTYING DRAIN DAILY AND TO DOCUMENT COLOR AND AMOUNT OF DRAINAGE. SKILLED NURSE TO EDUCATE PATIENT/CAREGIVER TO MONITOR FOR SIGNS AND SYMPTOMS OF INFECTION TO REPORT. IF CHESTTUBE FALL OUT TO PLACE HAND ON THE SITE,OR A NEW DRESSING AND CALL 911, IF PNEUMOSTAT FALL OFF, THE END SHOULD RECONNECT TO DEVICE AND CALL THORACIC OFFICE OR 911. AND WATCH OUT FOR FOR SIGNS AND SYMPTOMS OF INFECTION , AIR LEAK FROM PNEUMOSTS.] Future Scheduled Test SKILLED NU RSE TO OBTAIN PULSE OXIMETRY MEASUREMENT PRN FOR SIGNS AND SYMPTOMS OF SHORTNESS OF BREATH, ACTIVITY INTOLERANCE AND WHEN OXYGEN IS ORDERED. [code = SKILLED NURSE TO OBTAIN PULSE OXIMETRY MEASUREMENT PRN FOR SIGNS AND SYMPTOMS OF SHORTNESS OF BREATH, ACTIVITY INTOLERANCE AND WHEN OXYGEN IS ORDERED.] Future Scheduled Test SKILLED NU RSE FOR O/A AND TEACHING RELATED TO LUNG CANCER/NEOPLASM INCLUDING SIGNS AND SYMPTOMS OF DISEASE PROGRESSION, TREATMENT, AND MANAGEMENT OF POTENTIAL SIDE EFFECTS. [code = SKILLED NURSE FOR O/A AND TEACHING RELATED TO LUNG CANCER/NEOPLASM INCLUDING SIGNS AND SYMPTOMS OF DISEASE PROGRESSION, TREATMENT, AND MANAGEMENT OF POTENTIAL SIDE EFFECTS.] Future Scheduled Test PATIENT DUVAL S A RISK OF REHOSPITALIZATION. SKILLED NURSE TO ESTABLISH SUPPORT MEASURES TO MINIMIZE RISK OF REHOSPITALIZATION, AND INSTRUCT PATIENT/CAREGIVER ON METHODS TO REDUCE AVOIDABLE HOSPITALIZATION. [code = PATIENT HAS A RISK OF REHOSPITALIZATION. SKILLED NURSE TO ESTABLISH SUPPORT MEASURES TO MINIMIZE RISK OF REHOSPITALIZATION, AND INSTRUCT PATIENT/CAREGIVER ON METHODS TO REDUCE AVOIDABLE HOSPITALIZATION.] Future Scheduled Test SKILLED NU RSE TO PROVIDE INSTRUCTION TO PATIENT/CAREGIVER RELATED TO DISCHARGE PLANNING. [code = SKILLED NURSE TO PROVIDE INSTRUCTION TO PATIENT/CAREGIVER RELATED TO DISCHARGE PLANNING. ] Future Scheduled Test SKILLED NU RSE FOR OBSERVATION AND ASSESSMENT OF PATIENTS PAIN LEVEL AND EFFECTIVENESS OF PAIN MANAGEMENT REGIMEN. SKILLED NURSE TO INSTRUCT PATIENT/CAREGIVER REGARDING PHARMACOLOGIC AND NON-PHARMACOLOGIC PAIN CONTROL MEASURES. SKILLED NURSE TO REPORT TO PHYSICIAN IF PAIN IS UNCONTROLLED WITH CURRENT PAIN MANAGEMENT REGIMEN. [code = SKILLED NURSE FOR OBSERVATION AND ASSESSMENT OF PATIENTS PAIN LEVEL AND EFFECTIVENESS OF PAIN MANAGEMENT REGIMEN. SKILLED NURSE TO INSTRUCT PATIENT/CAREGIVER REGARDING PHARMACOLOGIC AND NON-PHARMACOLOGIC PAIN CONTROL MEASURES. SKILLED NURSE TO REPORT TO PHYSICIAN IF PAIN IS UNCONTROLLED WITH CURRENT PAIN MANAGEMENT REGIMEN.] Future Scheduled Test NEED FOR S KILLED TEACHING AND INTERVENTION RELATED TO SURG WOUND AT [place], RT.SKILLED NURSE OR TRAINED PATIENT/CAREGIVER TO PERFORM CLEANSE/WASH WITH WATER AND SOUP , PAT DRY COVER WITH NON WOVEN DRAIN SPONGES 4X4, SECURE WITH TAPE.WOUND CARE TO BE PERFORMED EVERY OTHER AND NEEDED IF SOILED OR DISLODGED. DISCONTINUE WOUND CARE/SUPPLIES ONCE WOUND IS HEALED. [code = NEED FOR SKILLED TEACHING AND INTERVENTION RELATED TO SURG WOUND AT [place], RT.SKILLED NURSE OR TRAINED PATIENT/CAREGIVER TO PERFORM CLEANSE/WASH WITH WATER AND SOUP , PAT DRY COVER WITH NON WOVEN DRAIN SPONGES 4X4, SECURE WITH TAPE.WOUND CARE TO BE PERFORMED EVERY OTHER AND NEEDED IF SOILED OR DISLODGED. DISCONTINUE WOUND CARE/SUPPLIES ONCE WOUND IS HEALED.] Future Scheduled Test SKILLED NU RSE TO ASSESS PATIENT'S SKIN INTEGRITY AND INSTRUCT PATIENT/CAREGIVER ON MEASURES TO PREVENT PRESSURE ULCERS [code = SKILLED NURSE TO ASSESS PATIENT'S SKIN INTEGRITY AND INSTRUCT PATIENT/CAREGIVER ON MEASURES TO PREVENT PRESSURE ULCERS] Goal 2021-12-04 Patient Goal - A BLE TO GO BACK TO NORMAL LIFE AGAIN. TO NEVER SMOKE AGAIN Goal Provider Goal - A PLAN OF CARE WILL BE ESTABLISHED THAT MEETS PATIENT'S USP NEEDS AND INCLUDES PATIENT GOAL FOR HOME HEALTH. Goal Provider Goal - PATIENT/CAREGIVER WILL DEMONSTRATE UNDERSTANDING OF PREFILLING MEDI-BUILDING ADMIN DEVICE. Goal Provider Goal - PATIENT/CAREGIVER WILL VERBALIZE/DEMONSTRATE EFFECTIVE HOME SAFETY AND FALL PREVENTION STRATEGIES THROUGHOUT CERTIFICATION PERIOD. Goal Provider Goal - PATIENT/CAREGIVER WILL VERBALIZE/DEMONSTRATE UNDERSTANDING OF THE MANAGEMENT OF DEPRESSION BY THE END OF THE EPISODE AND SYMPTOMS ARE IDENTIFIED AND MANAGED TO MAINTAIN PATIENT SAFETY IN THE HOME Goal Provider Goal - PATIENT/CAREGIVER WILL VERBALIZE/DEMONSTRATE MANAGEMENT OF DRAIN CARE. INCLUDING S/S INFECTION AND/OR COMPLICATIONS TO REPORT BY THE END OF THE CERTIFICATION PERIOD. Goal Provider Goal - PULSE OXIMETER RESULTS OBTAINED NEEDED FOR RESPIRATORY COMPLICATIONS. Goal Provider Goal - PATIENT / CAREGIVER WILL VERBALIZE/DEMONSTRATE MANAGEMENT OF CANCER/NEOPLASM DISEASE AND THE SIDE EFFECTS OF TREATMENTS DURING THIS EPISODE. Goal Provider Goal - PATIENT WILL HAVE SUPPORT MEASURES ESTABLISHED TO PREVENT REHOSPITALIZATION AND PATIENT/CAREGIVER WILL VERBALIZE/DEMONSTRATE METHODS TO REDUCE AVOIDABLE HOSPITALIZATION BY THE END OF THE EPISODE. Goal Provider Goal - PATIENT/CAREGIVER WILL VERBALIZE UNDERSTANDING OF DISCHARGE PLANNING INSTRUCTIONS BY DATE OF DISCHARGE. Goal Provider Goal - PATIENT/CAREGIVER WILL DEMONSTRATE UNDERSTANDING OF PHARMACOLOGIC AND NONPHARMACOLOGIC PAIN CONTROL MEASURES AND PATIENT WILL HAVE IMPROVEMENT IN PAIN INTERFERING WITH ACTIVITY EVIDENCED BY PAIN CONTROLLED AT LEVEL OF PECIFY PATIENT GOAL ON PAIN SCALE 7 OR LESS BY END OF CERTIFICATION PERIOD. Goal Provider Goal - WOUND CARE WILL BE COMPLETED AND PATIENT WILL HAVE IMPROVED WOUND STATUS EVIDENCED BY NO SIGNS AND SYMPTOMS OF INFECTION, DECREASED WOUND SIZE, AND/OR NO COMPLICATIONS BY THE END OF THE CERTIFICATION PERIOD. Goal Provider Goal - PATIENT/CAREGIVER WILL VERBALIZE UNDERSTANDING OF PRESSURE ULCER PREVENTION BY THE END OF THE EPISODE. Reason for Visit INDEPENDENT IN THE COMMUNITY Encounters Start Date/Time End Date/Time Encounter Type Admission Type Attending [facility] Care Department Encounter ID Discharge Date Discharge Status Discharge Condition Discharge Reason Percent Goals Met 2021-11-21 00:00:00 2021-12-04 00:00:00 Outpatient NEW ADMISSION [facility] [id number] 00:00:00 DISCHARGE TO HOME OR SELF CARE INDEPENDEN T IN THE COMMUNITY PER CLIENT REQUEST 81.25
== END 2024-05-15 15:46 | disposition home or self-care (01) ==
LOC: HO.HOP 14:58
PROVIDERS: PCP Internal Medicine; Visit Provider Clinical Nurse Specialist Psychiatric/Mental Health
DX: F43.21 Adjustment disorder with depressed mood (principal); F41.1 Generalized anxiety disorder; F33.41 Major depressive disorder, recurrent, in partial remission
CPT/HCPCS: 90833; 99214

== ENCOUNTER → 2024-05-15 14:58 | Outpatient (BNVA) | payer MEDICARE, OTHER, SELFPAY | PROVIDERS: PCP Internal Medicine; Visit Provider Clinical Nurse Specialist Psychiatric/Mental Health | DX: F43.21 Adjustment disorder with depressed mood (principal); F33.41 Major depressive disorder, recurrent, in partial remission; F33.9 Major depressive disorder, recurrent, unspecified; F41.1 Generalized anxiety disorder; Z71.89 Other specified counseling; Z79.899 Other long term (current) drug therapy | CPT/HCPCS: 99212 ==

== ENCOUNTER 2024-07-10 15:08 | Outpatient (AMB) | payer MEDICARE, OTHER, SELFPAY ==
--- NOTE | 2024-07-10 15:15 | A.OFFPSYCH_ITS ---
Intake Intake Visit Reasons: depression [employer] Required: No Allergies No Known Allergies Allergy (Verified 07/15/23 15:16) Medication List - Last Reconciled 07/10/24 by Julia Parikh APRN aripiprazole 2 mg PO DAILY atorvastatin 80 mg PO QPM bupropion HCl XL 300 mg PO DAILY escitalopram oxalate 20 mg PO DAILY gabapentin 300 mg PO TID levothyroxine 88 mcg PO DAILY lorazepam 0.5 mg PO TID PRN trazodone watch for over-sedation; take 1- 2 tablets daily at BEDTIME as needed for sleep valsartan-hydrochlorothiazide 320-25 mg 1 tab PO DAILY HPI- Psychiatric Chief Complaint: depression HPI Narrative: pt depression and anxiety worsened by situation with her sister who is having medical and psychiatric problem; her sister was psychiatrically hospitalized 4 days ago. Her sister requires increased support and is calling her frequently. she feels guilty if she doesn't respond right away. she is going to [employer] [facility] and her women's alevism support group. She is taking meds consistently; she sleeps well; no SI or HI. Past Psychiatric History: 1-[facility] age 22 depression 1- PHP in 2019 referred by [facility], no SI x 2 weeks, 4 months ago depression increased severely, new onset of severe anxiety, started [facility] php and completed 20 days before she really felt much better; depression was very deep, Dr. Langley made a med change there, she reports she had passive SI for weeks before going, no active SI; depression symptoms included not getting out of bed, not eating, no interest, low energy, low motivation; severe anxiety with anxiety attacks Pt says she has always had depression her whole life; had a severe bout of post depression at age 22 and [address] [place] [facility] ,no hospitalizations after that; lost her first child 21 yrs ago when her daughter in a MVA; She lost another daughter 2 yrs ago from an accidental overdose on heroin and fentanyl; her daughter Patsy of an opiate overdose on mother's day in 2013; her daughter had been doing well and in recovery and her was a shock; her was having open heart surgery at the same time and her older daughter was going through a divorce; pt reports she felt numb and probably didn't grieve; she lost 18 lbs in 3 months, 25 years on Prozac which worked well up until a few months ago; symptoms when very depression - not getting out of bed, no lunch with friends Subjective Subjective Subjective Medication Compliance: Yes Side effects from medications: No Review of Systems Medical Review of Systems: unchanged Mental Status Exam Mental Status Exam Patient Appearance: Well Grooomed Patient Orientation: Person, Place, Time and Situation Level of Consciousness: Awake and Appropriate Patient Behavior: Appropriate and Cooperative Mood Description: Depressed, Anxious and Flat Affect Description: Depressed, Anxious and Flat Patient Cognition Impaired: No Ability to Follow Directions: Good Speech Pattern: Clear and Appropriate Memory Description: Intact Hallucinations: None Delusions: Not Present Thought Process: Intact Thought Content: positive for Intact Judgement: Good Assessment and Plan Assessment & Plan (1) Complicated grief: Status: Acute Code(s): F43.21 - Adjustment disorder with depressed mood (2) STEVE (generalized anxiety disorder): Status: Acute Code(s): F41.1 - Generalized anxiety disorder (3) Major depression, recurrent: Status: Acute Qualifiers: Active/Remission status: in partial remission Qualified Code(s): F33.41 - Major depressive disorder, recurrent, in partial remission Code(s): F33.9 - Major depressive disorder, recurrent, unspecified Medications: Refilled aripiprazole 2 mg PO DAILY 90 tabs 1RF lorazepam 0.5 mg PO TID PRN 90 tabs 3RF anxiety bupropion HCl XL 300 mg PO DAILY 90 tabs 1RF gabapentin 300 mg PO TID 90 caps 3RF Counseling and coordination of Care Pt. Self Management counseling: Mod caffeine/ETOH intake, General coping skills and Problem solving Medication management counseling: Effectiveness, Side effects, Dosing range, Duration, Drug interaction and Adherence Diagnosis and Prognosis Counseling: Accuracy of diagnosis, Prognosis over time, Impact of diagnosis on life functions, Impact of family relationship, Problematic behaviors secondary to diagnosis and Adequacy of current interventions Details: I spent 40 minutes reviewing the record, seeing the patient and documenting in the medical record. Counseling provided to the patient/caregiver as outlined below. Addressed patient/caregiver concerns regarding current medication regime including effective adherence. Addressed patient/caregiver concerns regarding diagnosis and prognosis including accuracy of diagnosis, prognosis over time, impact of diagnosis. Addressed patient/caregiver concerns regarding impact of recent stressors. [facility] Medical History (Updated 05/15/24 @ 15:28 by Julia Parikh APRN) Lung cancer Social History: lives with ; has one adult daughter and two grandchildren. Lost one daughter in 1998 from MVA. lost another daughter from accidental overdose on opiates in 2017. Substance History: none Trauma History: Lost one daughter Clover in 1998 from MVA. lost another daughter Patsy from accidental overdose on opiates in 2017. Coding Level of Care Code Est Pt Level 4 (36160) Therapy 30m w/E&M (35607) Diagnoses Complicated grief F43.21 STEVE (generalized anxiety disorder) F41.1 Recurrent major depressive disorder, in partial remission F33.41 Active/Remission status: in partial remission
--- OUTSIDE RECORDS SUMMARY | 2024-07-10 18:23 | XMS_ITS ---
Author Name [facility] Organization Unknown History of Medication Use Medication Directions Dispensed Refills Start Date End Date Stat valsartan-hydroCHL OROthiazide (DIOVAN-HCT) 320-25 mg per tablet TAKE 1 TABLET BY MOUTH EVERY DAY 08/31/2023 active levothyroxine (SYNTHROID, LEVOTHROID) 88 mcg tablet Take 1 tablet (88 mcg total) by mouth 1 (one) time each day. 03/01/2024 active atorvastatin (LIPITOR) 80 mg tablet Take 1 Tablet by mouth every evening. 08/31/2023 active escitalopram (LEXAPRO) 20 mg tablet Take 1 tablet (20 mg total) by mouth 1 (one) time each day. active LORazepam (ATIVAN) 0.5 mg tablet Take 1 tablet (0.5 mg total) by mouth 2 (two) times a day if needed. 01/17/2023 activ e gabapentin (NEURONTIN) 300 mg capsule Take 300 mg by mouth 4 times daily. Managed by Julia Parikh RN CS [facility] Psychopharmacology active traZODone (DESYREL) 100 mg tablet Take 1 tablet (100 mg total) by mouth at bedtime. active fluticasone propion-salmeteroL (Advair HFA) 230-21 mcg/actuation inhaler INHALE 2 PUFFS INTO THE LUNGS 2 TIMES DAILY. RINSE MOUTH WITH WATER AND EXPECTORATE AFTER EACH DOSE 04/24/2024 active ARIPiprazole (ABILIFY) 2 mg tablet Take 1 tablet (2 mg total) by mouth 1 (one) time each day. active turmeric root extract 500 mg tablet Take by mouth. active folic acid (FOLVITE) 1 mg tablet Take 1 tablet (1,000 mcg total) by mouth 1 (one) time each day. active atorvastatin (LIPITOR) 80 mg tablet TAKE 1 TABLET BY MOUTH EVERY DAY IN THE EVENING 04/04/2024 active loperamide (IMODIUM) 2 mg capsule Take 1 Capsule by mouth 4 times daily as needed for Diarrhea. 08/15/2023 active buPROPion XL (WELLBUTRIN XL) 300 mg 24 hr tablet Take 1 tablet (300 mg total) by mouth 1 (one) time each day in the morning. 05/31/2023 active solifenacin (VESICARE) 5 mg tablet Take 1 tablet (5 mg total) by mouth 1 (one) time each day. Swallow tablet whole; do not crush, chew, or split. 06/01/2024 activ e albuterol (PROVENTIL HFA; VENTOLIN HFA) 108 (90 Base) MCG/ACT inhaler Inhale 2 puffs 4 times daily (every 6 hours) as needed for wheezing. 07/14/2022 07/23/19 2 3 active predniSONE (DELTASONE) 50 MG tablet Take 1 tablet (50 mg total) by mouth daily. With food. 07/14/2022 3 active Problems Problem Status Onset Date Problem Type Date of Resolution Source Hypertension active 2018-04-01 1 [facility] [facility] Multiple pulmonary nodules active 2024-01-01 8 Problem[address] [facility] Gastroesophageal reflux disease without esophagitis active 9 ProblemAct [facility] Hypothyroidism active 2018-04-01 1 ProblemAct [facility] Polymyalgia rheumatica active 2018-04-01 1 ProblemAct [facility] Pure hypercholesterolemia active 2021-08-30 6 ProblemAct [facility] Hiatal hernia active 9 ProblemAct [facility] Diverticulosis active 9 ProblemAct [facility] Arthritis active 2018-04-01 1 ProblemAct [facility] HLD (hyperlipidemia) active 2018-12-31 1 Problem[address] [facility] Change in bowel function active 2019-12 6 ProblemAct [facility] Prediabetes active 7 ProblemAct [facility] SSBE (short-segment Goldberg's esophagus) active 9 ProblemAct [facility] Depression active 2018-04-01 [address] [facility] Malignant neoplasm of upper lobe of right lung active 2021-11-30 7 ProblemAct [facility] Trochanteric bursitis of left hip active 2018-04-01 1 Problem[address] [facility] Overactive bladder active EncounterDiagnosisAct [facility] Leukocytosis active 7 ProblemAct [facility] Encounter for screening laboratory testing for COVID-19 virus active EncounterDiagnosisAct CC T Bronchitis active EncounterDiagnosisAct [facility] Immunizations Vaccine Date Source Lot Number Status Zoster recombinant (Shingrix ) 19yo and older 09/19/2017 [facility] [id number] completed Influenza trivalent, 0.5mL ( Fluad) 65yo and older 01/10/2019 [facility] [id number] completed Zoster recombinant (Shingrix ) 19yo and older 01/09/2018 [facility] [id number] completed Pneumococcal polysaccharide 23 valent (Pneumovax 23) 2yo and older 12/16/2021 [facility] [id number] com pleted Pneumococcal conjugate 13 va lent (Prevnar 13, PCV13) 2mo and older 02/22/2018 [facility] [id number] complet ed Tdap Tetanus diptheria acell ular pertussis (Boostrix; Adacel) 7yo and older 07/09/2021 [facility] [id number] completed Encounters Encounter Type Encounter Reason Primary Diagnosis Location Date Ambulatory [facility] 07/14/2022 Ambulatory Bronchitis, not specified as acute or chronic [facility] 07/14/2022 Care Team Organization Name Specialty Phone Email Start Date End Da [facility] 07/14/2022 07/14/2022 [facility] 07/14/2022
--- OUTSIDE RECORDS SUMMARY | 2024-07-10 18:23 | XMS_ITS | Clinical Summary ---
Author Organization [employer] [facility] it Address [address] [place] [address] Care Team Providers Care Dipper And Baker Name Role Phone Maria L Tabor MD Primary Care Prov ider Allergies No known active allergies Medications valsartan-hydr oCHLOROthiazid e (DIOVAN-HCT) 320-25 mg per tablet TAKE 1 TABLET BY MOUTH EVERY DAY 90 tablet 1 03/27/20 24 Active atorvastatin (LIPITOR) 80 mg tablet TAKE 1 TABLET BY MOUTH EVERY DAY IN THE EVENING 90 tablet 1 04/04/20 24 Active valsartan-hydr oCHLOROthiazid e (DIOVAN-HCT) 320-25 mg per tablet Take 1 tablet by mouth 1 (one) time each day. 08/31/19 24 Active atorvastatin (LIPITOR) 80 mg tablet Take 1 Tablet by mouth every evening. 08/31/19 24 Active ARIPiprazole (ABILIFY) 2 mg tablet Take 1 tablet (2 mg total) by mouth 1 (one) time each day. Acti ve buPROPion XL (WELLBUTRIN XL) 300 mg 24 hr tablet Take 1 tablet (300 mg total) by mouth 1 (one) time each day in the morning. 05/31/19 24 Active escitalopram (LEXAPRO) 20 mg tablet Take 1 tablet (20 mg total) by mouth 1 (one) time each day. Acti ve folic acid (FOLVITE) 1 mg tablet Take 1 tablet (1,000 mcg total) by mouth 1 (one) time each day. Acti ve gabapentin (NEURONTIN) 300 mg capsule Take 300 mg by mouth 4 times daily. Managed by Julia Parikh RN CS [facility] Psychopharmacology Active levothyroxine (SYNTHROID, LEVOTHROID) 88 mcg tablet Take 1 tablet (88 mcg total) by mouth 1 (one) time each day. 03/01/20 24 Active loperamide (IMODIUM) 2 mg capsule Take 1 Capsule by mouth 4 times daily as needed for Diarrhea. 08/15/19 24 Active LORazepam (ATIVAN) 0.5 mg tablet Take 1 tablet (0.5 mg total) by mouth 2 (two) times a day if needed. 01/18/20 23 Active traZODone (DESYREL) 100 mg tablet Take 1 tablet (100 mg total) by mouth at bedtime. Active turmeric root extract 500 mg tablet Take by mouth. Activ e fluticasone propion-salmet Andrew (Advair HFA) 230-21 mcg/actuation inhalerIndicat ions:Chronic obstructive pulmonary disease, unspecified (CMS/HCC) INHALE 2 PUFFS INTO THE LUNGS 2 TIMES DAILY. RINSE MOUTH WITH WATER AND EXPECTORATE AFTER EACH DOSE 12 each 2 04/24/20 24 Active solifenacin (VESICARE) 5 mg tabletIndicati ons:Overactive bladder Take 1 tablet (5 mg total) by mouth 1 (one) time each day. Swallow tablet whole; do not crush, chew, or split. 30 each 06/01/19 25 2024 Active Problems Problem Noted Date Diagnosed Date Multiple pulmonary nodules 01/18/2024 Malignant neoplasm of upper lobe of right lung 0 12/16/2021 Overview (04/12/2024): Adenocarcinoma status post lobectomy 11/18/2021 Pure hypercholesterolemia 09/14/2021 Gastroesophageal reflux disease without esophagi tis 04/09/2020 Diverticulosis 03/10/2020 Overview (04/12/2024): Sigmoid and descending colon, colonoscopy 03/2020 Hiatal hernia 03/10/2020 Overview (04/12/2024): Medium sized, EGD 03/2020 SSBE (short-segment Goldberg's esophagus) 020 Overview (04/12/2024): Esophageal mucosal changes concerning for this, biopsied EGD 03/2020 Prediabetes 12/07/2019 Leukocytosis 12/07/2019 Change in bowel function 12/06/2019 HLD (hyperlipidemia) 01/10/2019 Depression 04/11/2018 Arthritis 04/11/2018 Overview (04/12/2024): Self diagnosed in left foot, left hip, right shoulder. Hypertension 04/11/2018 Hypothyroidism 04/11/2018 Polymyalgia rheumatica 04/11/2018 Overview (04/12/2024): Bothered shoulders mostly Trochanteric bursitis of left hip 04/11/2018 Encounters Date Type Department Care Team Description 06/01/2024 Telephone Urogynecology - [address] [place] [address] Marli Hart MD Med Refill (Solifenacin) from Last 3 Months Immunizations Name Administration Dates Next Due Influenza trivalent, 0.5mL (Fluad) 65yo and olde r 01/10/2019 Pneumococcal conjugate 13 va lent (Prevnar 13, PCV13) 2mo and older 02/22/2018 Pneumococcal polysaccharide 23 valent (Pneumovax 23) 2yo and older 12/16/2021 Tdap Tetanus diptheria acell ular pertussis (Boostrix; Adacel) 7yo and older 07/09/2021 Zoster recombinant (Shingrix) 19yo and older 01/2018,09/19/2017 Surgical History Surgery Date Site/Laterality Comments CARPAL TUNNEL RELEASE Bilateral PROCEDURE: HISTORICAL CARPAL TUNNEL REL; COMMENT: -2005 EYE SURGERY PROCEDURE: HISTORICAL EYE SURGERY; COMMENT: cosmetic lid lift procedure both eyes OTHER SURGICAL HISTORY 11/17/2021 Right PROCEDURE: PA THORACOSCOPY W/LOBECTOMY SINGLE LOBE; COMMENT: RUL Medical History Medical History Date Comments Hypertension DX:Hypertension Mixed hyperlipidemia DX:Mixed hy perlipidemia Hypothyroidism DX:Hypothyroidis m Hiatal hernia DX:Hiatal hernia Family History Medical History Relation Name Comments Throat cancer Brother CAD s/p CABG i ssues start age late 50s, DM II Coronary artery disease Father VA a ge 61 , DM II Coronary artery disease Mother s/p CABG, CHF, DM II Lung cancer Paternal Grandfather Depression Sister Relation Name Status Comments Brother Alive Father Mother Paternal Grandfather Sister Alive Social History Tobacco Use Types Packs/Day Years Used Date Smoking Tobacco: Former Cigarettes Q uit: 09/30/2021 Smokeless Tobacco: Never Alcohol Use Standard Drinks/Week Comments Yes 0 (1 standard drink = 0.6 oz pur e alcohol) Comments Unknown Sex and Gender Information Value Date Recorded Sex Assigned at Not on file Legal Sex Female 5:27 AM EST Gender Identity Not on file Sexual Orientation Not on file Obstetrics History Last Filed Vital Signs Vital Sign Reading Time Taken Comments Blood Pressure 125/81 02/14/2024 1:06 PM EDT Pulse 78 02/14/2024 1:06 PM EDT Temperature - - Respiratory Rate - - Oxygen Saturation - - Inhaled Oxygen Concentration - - Weight 61.1 kg (134 lb 12.8 oz) 02/14/2024 1:06 PM EDT Height 157.5 cm (5' 2 ) 02/14/2024 1:06 PM EDT Body Mass Index 24.66 02/14/2024 1:06 PM EDT Plan of Treatment Upcoming Encounters Date Type Department Care Team (Late st Contact Info) Description 08/14/2024 1:15 PM EDT Office Visit Adult Medicine [address] [address] Maria L Tabor MD [address] [place] [address] Health Maintenance Due Date Last Done Comments Breast Cancer Screening 1950 RSV Immunization Patients 60 + Years Old (1 - Risk 60-74 years 1-dose series) 2012 COVID-19 Vaccine (3 - Pfizer risk series) 09/13/2020 08/16/2020, 07/25/2020 Depression Screening 04/10/2022 Falls Risk Assessment 04/10/2022 Hepatitis C Screening 04/10/2022 Social Influencers of Health Screening 04/10/2022 Lung Cancer Screening (Low Dose CT) 09/09/2022 09/09/2021 Influenza Vaccine (#1) 2024 , 01/10/2019 Hypertension/CHF/CAD Annual BMP Blood Test 06/29/2024 06/30/2023 Cholesterol Screening (Lipid Panel) 06/29/2028 06/30/2023 Colorectal Cancer Screening: Colonoscopy 03/06/2030 03/06/2020 DTaP,Tdap,and Td Vaccines (2 - Td or Tdap) 07/10/2031 07/09/2021 Osteoporosis Screening (Bone Density Screening) 09/10/2031 09/09/2021 Zoster Vaccines Completed 01/09/2018, 09/19/2017 Pneumococcal Vaccine: 50+ Years Completed 12/16/2021, 02/22/2018 HIB Vaccines Aged Out No longer eligi ble based on patient's age to complete this topic HPV Vaccines Aged Out No longer eligi ble based on patient's age to complete this topic Hepatitis A Vaccines Aged Out No long er eligible based on patient's age to complete this topic Hepatitis B Vaccines Aged Out No long er eligible based on patient's age to complete this topic IPV Vaccines Aged Out No longer eligi ble based on patient's age to complete this topic MMR Vaccines Aged Out No longer eligi ble based on patient's age to complete this topic Meningococcal ACWY Vaccine Aged Out N o longer eligible based on patient's age to complete this topic Meningococcal B Vacine Aged Out No lo nger eligible based on patient's age to complete this topic RSV Immunization Patients Under 20 months Aged Out No longer eligible b ased on patient's age to complete this topic Varicella Vaccines Aged Out No longer eligible based on patient's age to complete this topic Procedures Procedure Name Priority Date/Time Associated Diagnosis Comments ANNUAL BMP BLOOD TEST Routine 06/30/2023 LIPID PANEL Routine 06/30/2023 DXA BONE DENSITY STUDY 1+ SITS AXIAL SKEL Routine 09/09/2021 1:46 PM EDT Encounter for screening for osteoporosis CT LUNG SCREENING LOW DOSE Routine 09/09/2021 11:03 AM EDT Personal history of nicotine dependence HM COLONOSCOPY Routine 03/06/2020 from Last 3 Months or Most Recently Relevant to Health Maintenance Results * Annual BMP Blood Test (06/30/2023) Annual BMP Blood Test abstracted Historical Provider HEALTH MAINTENANCE Final Result * Lipid panel (06/30/2023) LDL/HDL Ratio 3 0 - 4 Triglycerides 108 0 - 150 mg/dL Cholesterol 134 0 - 200 mg/dL HDL 52 >=40 mg/dL LDL Cholesterol 61 0 - 100 mg/dL Blood Venous blood specimen / Unknown Historical Provider LAB BLOOD ORDERABLES Shobha l Result * DXA BONE DENSITY STUDY 1+ SITS AXIAL SKEL (09/09/2021 1:46 PM EDT) Anatomical Region Laterality Modality Bone Densitometr y 07/09/2021 10:0 9 AM EST Narrative 09/09/2021 5:45 PM EDT BONE DENSITY ? Lumbar Spine T-score is +1.0 ?? (SD relative to 20-29 y/o adult) Z-score is +3.1 ??(SD relative to age matched peers) This is normal by criteria defined by the WHO. Left Hip T-score is +0.9 Z-score is +0.9 This is normal by criteria defined by the WHO. Impression: Based on the World Health Organization criteria, Julia Yao should be classified as having normal bone density. The [facility] Department of Internal Medicine recommends using National Osteoporosis Foundation (NOF) guidelines in treatment decisions related to osteoporosis. NOF guidelines suggest considering treatment for postmenopausal women and men aged 50 or older presenting with the following: History of hip or vertebral fracture. T-score less than or equal to -2.5 (DXA) at the femoral neck, total hip, or spine, after appropriate evaluation to exclude secondary causes. Low bone mass (T-score between -1.0 and -2.5 at the femoral neck or spine) AND a 10-year probability of a hip fracture greater than or equal to 3% OR a 10-year probability of a major osteoporosis-related fracture greater than or equal to 20% based on the [place]-adapted WHO algorithm Please note that all treatment decisions require clinical judgment and consideration of individual patient factors, including patient preferences, co-morbidities, previous drug use, risk factors not captured in the FRAX model (e.g., frailty, falls, vitamin D deficiency, increased bone turnover, interval significant decline in bone density) and possible under- or over-estimation of fracture risk by FRAX. Procedure Note Mary Oakley MD - 04/20/2022 BONE DENSITY Lumbar Spine T-score is +1.0 (SD relative to 20-29 y/o adult) Z-score is +3.1 (SD relative to age matched peers) This is normal by criteria defined by the WHO. Left Hip T-score is +0.9 Z-score is +0.9 This is normal by criteria defined by the WHO. Impression: Based on the World Health Organization criteria, Julia Yao should beclassified as having normal bone density. The [facility] Department of Internal Medicine recommendsusing National Osteoporosis Foundation (NOF) guidelines in treatmentdecisions related to osteoporosis. NOF guidelines suggest consideringtreatment for postmenopausal women and men aged 50 or older presentingwith the following: History of hip or vertebral fracture. T-score less than or equal to -2.5 (DXA) at the femoral neck, total hip,or spine, after appropriate evaluation to exclude secondary causes. Low bone mass (T-score between -1.0 and -2.5 at the femoral neck or spine)AND a 10-year probability of a hip fracture greater than or equal to 3% ORa 10-year probability of a major osteoporosis-related fracture greaterthan or equal to 20% based on the [place]-adapted WHO algorithm Please note that all treatment decisions require clinical judgment andconsideration of individual patient factors, including patientpreferences, co-morbidities, previous drug use, risk factors not capturedin the FRAX model (e.g., frailty, falls, vitamin D deficiency, increasedbone turnover, interval significant decline in bone density) and possibleunder- or over-estimation of fracture risk by FRAX. us Nataly MCGRAW IMG DXA PROCEDURES Final R esult * CT LUNG SCREENING LOW DOSE (09/09/2021 11:03 AM EDT) Anatomical Region Laterality Modality Computed Tomogra phy 09/08/2021 3:34 PM EDT Narrative 09/09/2021 11:03 AM EDT [facility] Diagnostic Imaging Department [address] [place], [place] [id number] Patient: ??NAJMA,JULIA ?/Age/Sex: 1950 - 71 - F Unit#: ??[id number] ? Location/Status: ??SPDICATLS/REG CLI ? Mnem[facility]Ordering [facility] [place] Physician: ??GRACE ALBARRAN MD CT Lung Screening Low Dose - 09/08/21 - 6274 ADDENDUM Lung RADS category 4A, probably suspicious Addendum Dictated By: ??TITO PATEL MD Addendum Esigned by: TITO PATEL MD Dictated: 09/09/2103/23/1057 Signed:09/09/21 1108 ORIGINAL REPORT History: 71-year-old female current smoker with 53 pack year history of smoking referred for low-dose lung cancer screening. Technique: Noncontrast low dose chest CT was performed per lung cancer CT screening protocol. ??Dose reduction techniques utilized including automated exposure control (mA and kVp adjusted according to patient's size). Iterative reconstruction techniques utilized. DLP: 158 mGy/cm. Comparison: No prior chest imaging available. Findings: There are no discernible emphysematous changes despite extensive history of smoking. There is very mild generalized bronchial thickening. Right upper lobe complex morphology groundglass opacity, exhibiting branching lobular margins, measures just under 2 cm transverse diameter about areas of groundglass attenuation. Within midportion of opacity is linear mildly branching area of increased density measuring 5.5 x 7.2 mm that has intimate contact with nearby vessels, but is larger; therefore, suggested to be nonvascular and potential for developing solid component that is fainter on coronal and sagittal images. No discrete solid lung mass. No pleural or pericardial effusion and in no enlarged mediastinal lymph nodes. Top normal caliber ascending thoracic aorta. Cardiac artery calcification, most notable left anterior descending coronary artery. No concerning incidental abnormality identified within the upper abdomen or thoracic inlet. No suspicious bony abnormality. Impression: Groundglass attenuation measuring just under 2 cm affecting right upper lobe with central area of more confluent opacity, mild to moderately suspicious. Given presence of more discrete hyperdensity within midportion of groundglass opacity, follow-up low-dose CT in 3-6 months recommended to document stability. [id number] [id number], G9557, G955 Dictating Physician: ??TITO PATEL MD Electronically Signed by: ??TITO PATEL MD Dic Date/Time: ??09/08/21 1849 Sign date/Time: ??09/08/21 1900 Procedure Note Tito Patel MD - 04/21/2022 [facility] Diagnostic Imaging Department [address] [place] [id number] Patient: JULIA YAO/Age/Sex: 1950 - 71 - F Unit#: [id number] [facility] Ordering Physician: GRACE ALBARRAN MD CT Lung Screening Low Dose - 09/08/21 - 1541 ADDENDUM Lung RADS category 4A, probably suspicious Addendum Dictated By: TITO PATEL MD Addendum Esigned by: TITO PATEL MD Dictated: 09/09/2103/23/1057 Signed:09/09/21 1103 ORIGINAL REPORT History: 71-year-old female current smoker with 53 pack year history ofsmoking referred for low-dose lung cancer screening. Technique: Noncontrast low dose chest CT was performed per lung cancerCT screening protocol. Dose reduction techniques utilized includingautomated exposure control (mA and kVp adjusted according to patient's size).Iterative reconstruction techniques utilized. DLP: 158 mGy/cm. Comparison: No prior chest imaging available. Findings: There are no discernible emphysematous changes despite extensive historyof smoking. There is very mild generalized bronchial thickening. Right upper lobe complex morphology groundglass opacity, exhibitingbranching lobular margins, measures just under 2 cm transverse diameter about areasof groundglass attenuation. Within midportion of opacity is linear mildlybranching area of increased density measuring 5.5 x 7.2 mm that has intimate contactwith nearby vessels, but is larger; therefore, suggested to be nonvascularand potential for developing solid component that is fainter on coronal andsagittal images. No discrete solid lung mass. No pleural or pericardial effusion and inno enlarged mediastinal lymph nodes. Top normal caliber ascending thoracicaorta. Cardiac artery calcification, most notable left anterior descendingcoronary artery. No concerning incidental abnormality identified within the upper abdomenor thoracic inlet. No suspicious bony abnormality. Impression: Groundglass attenuation measuring just under 2 cm affecting right upperlobe with central area of more confluent opacity, mild to moderatelysuspicious. Given presence of more discrete hyperdensity within midportion ofgroundglass opacity, follow-up low-dose CT in 3-6 months recommended to documentstability. 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
--- OUTSIDE RECORDS SUMMARY | 2024-07-10 18:23 | XMS_ITS | Encounter Summary ---
Author Organization [facility] Address [address] [place] [address] Care Team Providers Care Flight Follower Name Role Phone Unknown Primary Care Provider [phone] Encounter Details Date Type Department Care Team (Late st Contact Info) Description 07/14/2022 4:04 PM EDT Hospital Encounter [facility] [address] [place] [address] Mack Pleitez MD [address] [place] [address] Social History Tobacco Use Types Packs/Day Years Used Date Smoking Tobacco: Never Assessed Sex and Gender Information Value Date Recorded Sex Assigned at Not on file Gender Identity Not on file Sexual Orientation [...] clear. Cardiomediastinal and hilar silhouette are unremarkable. ??Pulmonary vascularity is normal. No pleural effusion or [...] acute process. Clau Simon PA-C IMG DIAGNOSTIC IM AGING ORDERABLES documented in this encounter Visit Diagnoses Not on filedocumented in this encounter Care Teams Flight Follower Relationship Specialty Start Date End Date Unknown Unknow Provider Address PCP - General 05/02/22 documented as of this encounter
--- OUTSIDE RECORDS SUMMARY | 2024-07-10 18:23 | XMS_ITS | Clinical Summary ---
Author Organization [facility] Address [address] [place] [address] Care Team Providers Care Engineer Fishing Vessel Name Role Phone Unknown Primary Care Provider [phone] Allergies No known active allergies Medications Medication Sig Dispensed Refills Start Date End Date Status benzonatate (TESSALON) 200 MG capsuleIndications:B ronchitis Take 1 capsule (200 mg total) by mouth 3 (three) times a day as needed for cough. 21 capsule 07/14/2022 Active albuterol (PROVENTIL HFA; VENTOLIN HFA) 108 (90 Base) MCG/ACT inhalerIndications:B doris Inhale 2 puffs 4 times daily (every 6 hours) as needed for wheezing. 1 each 07/14/2022 Active predniSONE (DELTASONE) 50 MG tabletIndications:Br onchitis Take 1 tablet (50 mg total) by mouth daily. With food. 5 tablet 07/14/2022 Active doxycycline (VIBRAMYCIN) 100 MG capsuleIndications:B ronchitis Take 1 capsule (100 mg total) by mouth 2 (two) times a day. 14 capsule 07/14/2022 Active Social History Tobacco Use Types Packs/Day Years Used Date Smoking Tobacco: Never Assessed Sex and Gender Information Value Date Recorded Sex Assigned at Not on file Gender Identity Not on file Sexual Orientation Not on file Last Filed Vital Signs Vital Sign Reading Time Taken Comments Blood Pressure 138/93 07/14/2022 3:36 PM EDT Pulse 88 07/14/2022 3:36 PM EDT Temperature 36.1 ??C (97 ??F) 07/14/2022 3:36 PM EDT Respiratory Rate 16 07/14/2022 3:36 PM EDT Oxygen Saturation 96% 07/14/2022 3:36 PM EDT Inhaled Oxygen Concentration - - Weight 61.2 kg (135 lb) 07/14/2022 3:36 PM EDT Height 157.5 cm (5' 2 ) 07/14/2022 3:36 PM EDT Body Mass Index 24.69 07/14/2022 3:36 PM EDT Plan of Treatment Health Maintenance Due Date Last Done Comments Hepatitis C Virus Screening 1950 DTaP/Tdap/Td Vaccines (1 - Tdap) 1971 Mammogram 1992 Colonoscopy 1997 Pneumococcal Vaccines 50+ (1 of 1 - PCV) 2002 Zoster (Shingles) Vaccine (1 of 2) 2002 DXA Bone Density (Females,Ages 65 and older) 2017 Influenza Vaccine 12/01/2023 COVID-19 Vaccine (3 - 2023-2 5 season) 2024 08/16/2020, 07/25/2020 RSV Vaccine 60 years and older and Patients (1 - 1-dose 75+ series) 2027 Hepatitis B Vaccines Aged Out No long er eligible based on patient's age to complete this topic Care Teams Engineer Fishing Vessel Relationship Specialty Start Date End Date Unknown Unknow Provider Address PCP - General 05/02/22
== END 2024-07-10 15:55 | disposition home or self-care (01) ==
LOC: HO.HOP 15:08
PROVIDERS: PCP Internal Medicine; Visit Provider Clinical Nurse Specialist Psychiatric/Mental Health
DX: F43.21 Adjustment disorder with depressed mood (principal); F41.1 Generalized anxiety disorder; F33.41 Major depressive disorder, recurrent, in partial remission
CPT/HCPCS: 90833; 99214

== ENCOUNTER → 2024-07-10 15:08 | Outpatient (BNVA) | payer MEDICARE, OTHER, SELFPAY | PROVIDERS: PCP Internal Medicine; Visit Provider Clinical Nurse Specialist Psychiatric/Mental Health | DX: F43.21 Adjustment disorder with depressed mood (principal); F41.1 Generalized anxiety disorder; F33.41 Major depressive disorder, recurrent, in partial remission | CPT/HCPCS: 99212 ==

== ENCOUNTER 2024-08-21 14:20 | Outpatient (AMB) | payer MEDICARE, OTHER, SELFPAY ==
--- NOTE | 2024-08-21 14:39 | A.OFFPSYCH_ITS ---
Intake Intake Visit Reasons: depression Manager Embalmer Funeral Director Required: No Allergies No Known Allergies Allergy (Verified 07/15/23 15:16) Medication List - Last Reconciled 08/21/24 by Julia Parikh APRN aripiprazole 2 mg PO DAILY atorvastatin 80 mg PO QPM bupropion HCl XL 300 mg PO DAILY escitalopram oxalate 20 mg PO DAILY gabapentin 300 mg PO TID levothyroxine 88 mcg PO DAILY lorazepam 0.5 mg PO TID PRN trazodone watch for over-sedation; take 1- 2 tablets daily at BEDTIME as needed for sleep valsartan-hydrochlorothiazide 320-25 mg 1 tab PO DAILY HPI- Psychiatric Chief Complaint: depression HPI Narrative: continues to struggle with sadness and worry specifically about her sister who has mental health and medical issues; she is in [facility] for [facility] and needs muchhelp with all areas of her life. pt getting support from Confucianist friends. she is consistent with medications; no side effects. she reports a recent fall while out walking with dog. No LOC or head injury. No SI or HI Past Psychiatric History: 1-[facility] age 22 depression 1- PHP in 2019 referred by [facility], no SI x 2 weeks, 4 months ago depression increased severely, new onset of severe anxiety, started [facility] php and completed 20 days before she really felt much better; depression was very deep, Dr. Langley made a med change there, she reports she had passive SI for weeks before going, no active SI; depression symptoms included not getting out of bed, not eating, no interest, low energy, low motivation; severe anxiety with anxiety attacks Pt says she has always had depression her whole life; had a severe bout of post depression at age 22 and was hospitalized at [facility]; ,no hospitalizations after that; lost her first child 21 yrs ago when her daughter in a MVA; She lost another daughter 2 yrs ago from an accidental overdose on heroin and fentanyl; her daughter Patsy of an opiate overdose on mother's day in 2013; her daughter had been doing well and in recovery and her was a shock; her was having open heart surgery at the same time and her older daughter was going through a divorce; pt reports she felt numb and probably didn't grieve; she lost 18 lbs in 3 months, 25 years on Prozac which worked well up until a few months ago; symptoms when very depression - not getting out of bed, no lunch with friends Subjective Subjective Subjective Medication Compliance: Yes Side effects from medications: No Review of Systems Medical Review of Systems: unchanged Mental Status Exam Mental Status Exam Patient Appearance: Well Grooomed and Appropriate Patient Orientation: Person, Place, Time and Situation Level of Consciousness: Awake Patient Behavior: Appropriate Mood Description: Sad Affect Description: Anxious and Sad Patient Cognition Impaired: No Ability to Follow Directions: Good Speech Pattern: Clear Memory Description: Intact Delusions: Not Present Thought Process: Intact Thought Content: positive for Intact Judgement: Good Assessment and Plan Assessment & Plan (1) Complicated grief: Status: Acute Code(s): F43.21 - Adjustment disorder with depressed mood (2) STEVE (generalized anxiety disorder): Status: Acute Code(s): F41.1 - Generalized anxiety disorder (3) Major depression, recurrent: Status: Acute Qualifiers: Active/Remission status: in partial remission Qualified Code(s): F33.41 - Major depressive disorder, recurrent, in partial remission Code(s): F33.9 - Major depressive disorder, recurrent, unspecified Plan continue meds as per below drink plenty of fluids contact PCP to follow up re: recent fall Medications: Refilled bupropion HCl XL 300 mg PO DAILY 90 tabs 1RF escitalopram oxalate 20 mg PO DAILY 90 tabs 1RF aripiprazole 2 mg PO DAILY 90 tabs 1RF gabapentin 300 mg PO TID 90 caps 3RF lorazepam 0.5 mg PO TID PRN 90 tabs 3RF anxiety trazodone watch for over-sedation; take 1- 2 tablets daily at BEDTIME as needed for sleep 180 tabs 1RF sleep Counseling and coordination of Care Pt. Self Management counseling: Maintenance-social rhythm, Mod caffeine/ETOH intake, Nutrition education and improvement and Cognitive restructuring Medication management counseling: Effectiveness, Side effects, Dosing range, Duration, Drug interaction and Adherence Diagnosis and Prognosis Counseling: Accuracy of diagnosis, Prognosis over time, Impact of diagnosis on life functions, Impact of family relationship, Problematic behaviors secondary to diagnosis and Adequacy of current interventions Details: I spent 35 minutes reviewing the record, seeing the patient and documenting in the medical record. Counseling provided to the patient/caregiver as outlined below. Addressed patient/caregiver concerns regarding current medication regime including effective adherence. Addressed patient/caregiver concerns regarding diagnosis and prognosis including accuracy of diagnosis, prognosis over time, impact of diagnosis. Addressed patient/caregiver concerns regarding impact of recent stressors. [facility] Medical History (Updated 05/15/24 @ 15:28 by Julia Parikh APRN) Lung cancer Social History: lives with ; has one adult daughter and two grand children. Lost one daughter in 1998 from MVA. lost another daughter from accidental overdose on opiates in 2017. Substance History: none Trauma History: Lost one daughter Clover in 1998 from MVA. lost another daughter Patsy from accidental overdose on opiates in 2017. Coding Level of Care Code Est Pt Level 4 (00783) Diagnoses Complicated grief F43.21 STEVE (generalized anxiety disorder) F41.1 Recurrent major depressive disorder, in partial remission F33.41 Active/Remission status: in partial remission
--- OUTSIDE RECORDS SUMMARY | 2024-08-21 17:12 | XMS_ITS | Clinical Summary ---
Author Organization [facility] [address] [facility] Address [address] [place] [address] Phone Care Team Providers Care Field Support Representative Name Role Phone Maria L Tabor MD Primary Care Prov ider Allergies No known active allergies Medications valsartan-hydr oCHLOROthiazid e (DIOVAN-HCT) 320-25 mg per tablet TAKE 1 TABLET BY MOUTH EVERY DAY 90 tablet 1 03/27/20 24 Active atorvastatin (LIPITOR) 80 mg tablet TAKE 1 TABLET BY MOUTH EVERY DAY IN THE EVENING 90 tablet 1 04/04/20 24 Active ARIPiprazole (ABILIFY) 2 mg tablet [...] mg tablet Take by mouth. Activ e valsartan-hydr oCHLOROthiazid e (DIOVAN-HCT) 320-25 mg per tablet Take 1 tablet by mouth 1 (one) time each day. 08/31/19 24 2024 Disconti nued(The rapy complete d) atorvastatin (LIPITOR) 80 mg tablet Take 1 Tablet by mouth every evening. 08/31/19 24 2024 Disconti nued(The rapy complete d) fluticasone propion-salmet Andrew (Advair HFA) 230-21 mcg/actuation inhalerIndicat ions:Chronic obstructive pulmonary disease, unspecified (CMS/HCC V24, CMS/HCC V28) INHALE 2 PUFFS INTO THE LUNGS 2 TIMES DAILY. RINSE MOUTH WITH WATER AND EXPECTORATE AFTER EACH DOSE 12 each 2 04/24/20 24 2024 Disconti nued(The rapy complete d) Active Problems Problem Noted Date Diagnosed Date Chronic cough 08/14/2024 Multiple pulmonary nodules 01/18/2024 Malignant neoplasm of upper lobe of right lung (CMS/HCC V24, CMS/HCC V28) 12/16/2021 Overview (04/12/2024): Adenocarcinoma status post lobectomy [...] shoulder. Hypertension 04/11/2018 Hypothyroidism 04/11/2018 Polymyalgia rheumatica ([facility] V24) 04/11/2018 Overview (04/12/2024): Bothered shoulders mostly Trochanteric bursitis of left hip 04/11/2018 Encounters Date Type Department Care Team Description 08/14/2024 1:30 PM EDT - 08/14/2024 11:59 PM EDT Hospital Encounter Xray - [facility] [place] [address] [place] [address] Neck pain on left side Discharge Disposition: Home or Self Care 08/14/2024 1:15 PM EDT Office Visit Adult Medicine - [address] [phone] Maria L Schultz MD Neck pain on left side (Primary Dx); Hypothyroidism, unspecified type; Polymyalgia rheumatica ([facility] V24); Chronic cough; Primary hypertension 07/19/2024 Telephone Urogynecology [address] [place] [address] Marli Hart MD Med Refill 06/01/2024 Telephone Urogynecology [address] [place] [address] Marli Hart MD Med Refill [...] eyes OTHER SURGICAL HISTORY 11/17/2021 Right PROCEDURE: SD THORACOSCOPY W/LOBECTOMY SINGLE LOBE; COMMENT: RUL Medical History Medical History Date Comments Hypertension DX:Hypertension Mixed hyperlipidemia DX:Mixed hy perlipidemia Hypothyroidism DX:Hypothyroidis m Hiatal hernia DX:Hiatal hernia Family History Medical History Relation Name Comments Throat cancer Brother CAD s/p CABG i ssues start age late 50s, DM II Coronary artery disease Father NM a ge 61 , DM II Coronary artery disease Mother s/p CABG, CHF, DM II Lung cancer Paternal Grandfather Depression Sister Relation Name Status Comments Brother Alive Father Mother Paternal Grandfather Sister Alive Social History Tobacco Use Types Packs/Day Years Used Date Smoking Tobacco: Former Cigarettes Q uit: 09/30/2021 Smokeless Tobacco: Never Tobacco Cessation:Counseling Given: Not Answered Alcohol Use Standard Drinks/Week Comments Yes 0 (1 standard drink = 0.6 oz pur e alcohol) Comments No Sex and Gender Information Value Date Recorded Sex Assigned at Not on file Legal Sex Female 5:27 AM EST Gender Identity Not on file Sexual Orientation Not on file Obstetrics History Last Filed Vital Signs Vital Sign Reading Time Taken Comments Blood Pressure 117/74 08/14/2024 1:04 PM EDT Pulse 76 08/14/2024 1:04 PM EDT Temperature 36.6 ??C (97.9 ??F) 08/14/2024 1:04 PM ED T Respiratory Rate - - Oxygen Saturation - - Inhaled Oxygen Concentration - - Weight 59.5 kg (131 lb 3.2 oz) 08/14/2024 1:04 P M EDT Height 157.5 cm (5' 2 ) 02/14/2024 1:06 PM EDT Body Mass Index 24 02/14/2024 1:06 PM EDT Plan of Treatment Health Maintenance Due Date Last Done Comments Breast Cancer Screening 1950 RSV Immunization Adult Patients (1 - Risk 60-74 years 1-dose series) 2012 Depression Screening 04/10/2022 Falls Risk Assessment 04/10/2022 Hepatitis C Screening 04/10/2022 Social Influencers of Health Screening 04/10/2022 Lung Cancer Screening (Low Dose CT) 09/09/2022 09/09/2021 COVID-19 Vaccine ( season) 2024 02/22/2021, 08/16/2020, 07/25/2020 Medicare Annual Wellness Visit 02/05/2024 02/04/2023 Hypertension/CHF/CAD Annual BMP Blood Test 06/29/2024 06/30/2023 Influenza Vaccine (Season Ended) 2024 02/17/2021, 01/20/2020, 01/10/2019, Additional history exists Cholesterol Screening (Lipid Panel) 06/29/2028 06/30/2023 Colorectal [...] age to complete this topic Meningococcal B Vaccine Aged Out No l onger eligible based on patient's age to complete this topic RSV Immunization Patients Under 20 months Aged Out No longer eligible based on patient's age to complete this topic Varicella Vaccines Aged Out No longer eligible based on patient's age to complete this topic Procedures Procedure Name Priority Date/Time Associated Diagnosis Comments XR CERVICAL SPINE 4-5 VIEWS Routine 08/14/2024 1:48 PM EDT Neck pain on left side ANNUAL BMP BLOOD TEST Routine 06/30/2023 LIPID PANEL Routine 06/30/2023 DXA BONE DENSITY STUDY 1+ SITS AXIAL SKEL Routine 09/09/2021 1:46 PM EDT Encounter for screening for osteoporosis CT LUNG SCREENING LOW DOSE Routine 09/09/2021 11:03 AM EDT Personal history of nicotine dependence COLONOSCOPY Routine 03/06/2020 from Last 3 Months or Most Recently Relevant to Health Maintenance Results * XR Cervical Spine 4-5 Views (08/14/2024 1:48 PM EDT) Anatomical Region Laterality Modality Spine, C-spine Radiographic Beatris ging 08/15/2024 6:43 AM EDT Impressions 08/15/2024 6:57 AM EDT Degenerative changes, most prominent at C5-6 and C6-7 where bilateral neural foraminal encroachment is present. ??Straightening of the normal cervical lordosis can be positional or secondary to muscle spasm. POS - [id number] -------- FINAL REPORT -------- Dictated By: Aleisha Abreu Dictated Date: 08/15/2024 06:43 ET Assigned Physician: Aleisha Abreu Reviewed and Electronically Signed By: Aleisha Abreu Signed Date: 08/15/2024 06:57 ET Workstation ID: [id number] Transcribed By: Self Edit Transcribed Date: 08/15/2024 06:43 ET Narrative 08/15/2024 6:57 AM EDT EXAM: Cervical spine x-ray HISTORY: Neck pain on left side. ??No known trauma. COMPARISON: None FINDINGS: 4 views performed. Cervical spine is visualized through C7 on the lateral projection. No compression deformities. ??Straightening of the normal cervical lordosis. Moderate to severe disc space narrowing at C6-7 and mild at C5-6. ??Fairly diffuse bulky anterior endplate osteophytes. ??Uncovertebral spurring at C5-6 and C6-7. On the right, moderate neural foraminal encroachment at C5-6 and C6-7. ??On the left, mild neural foraminal encroachment at C5-6 and C6-7. Atlantoaxial distance is within normal limits. ??No abnormal thickening of the prevertebral soft tissues. ??Suture material in the right upper lung. Procedure Note Aleisha Abreu MD - 08/15/2024 EXAM: Cervical spine x-ray HISTORY: Neck pain on left side. No known trauma. COMPARISON: None FINDINGS: 4 views performed. Cervical spine is visualized through C7 on the lateral projection. Nocompression deformities. Straightening of the normal cervical lordosis. Moderate to severe disc space narrowing at C6-7 and mild at C5-6. Fairlydiffuse bulky anterior endplate osteophytes. Uncovertebral spurring atC5-6 and C6-7. On the right, moderate neural foraminal encroachment at C5-6 and C6-7. Onthe left, mild neural foraminal encroachment at C5-6 and C6-7. Atlantoaxial distance is within normal limits. No abnormal thickening ofthe prevertebral soft tissues. Suture material in the right upper lung. IMPRESSION: Degenerative changes, most prominent at C5-6 and C6-7 where bilateralneural foraminal encroachment is present. Straightening of the normalcervical lordosis can be positional or secondary to muscle spasm. POS - [id number] -------- FINAL REPORT -------- Dictated By: Aleisha Abreu Dictated Date: 08/15/2024 06:43 ET Assigned Physician: Aleisha Abreu Reviewed and Electronically Signed By: Aleisha Abreu Signed Date: 08/15/2024 06:57 ET Workstation ID: [id number] Transcribed By: Self Edit Transcribed Date: 08/15/2024 06:43 ET Maria L Tabor MD IMG XR PROCEDURES Final Result * Annual BMP Blood Test (06/30/2023) [facility] Annual BMP Blood Test abstracted Historical Provider HEALTH MAINTENANCE Final Result * Lipid panel (06/30/2023) [facility] LDL/HDL Ratio 3 0 - 4 Triglycerides [...] classified as having normal bone density. The [facility] Department of Internal Medicine recommends using National [...] beclassified as having normal bone density. The [facility] Department of Internal Medicine recommendsusing National Osteoporosis [...] PM EDT Narrative 09/09/2021 11:03 AM EDT [facility] Diagnostic Imaging Department [address] [place] [address] Patient: ??RZASA,JULIA ?/Age/Sex: 1950 - 71 - F Unit#: ??[id number] ? Location/Status: ??SPDICATLS/REG CLI ? Mnemonic/Ordering Site[facility] Order[facility] Physician: ??GRACE ALBARRAN MD CT Lung Screening Low Dose - 09/08/211540 ADDENDUM Lung RADS category 4A, probably suspicious Addendum Dictated By: ??TITO PATEL MD Addendum Esigned by: TITO PATEL MD Dictated: 09/09/2103/23/1057 Signed:09/09/21 1109 ORIGINAL REPORT History: 71-year-old female current smoker [...] in 3-6 months recommended to document stability. 93743 G9637, G9557, G9556 Dictating Physician: ??TITO PATEL MD Electronically Signed by: ??TITO PATEL MD Dic Date/Time: ??09/08/21 1849 Sign date/Time: ??09/08/21 1900 Procedure Note Tito Patel MD - 04/21/2022 [facility] Diagnostic Imaging Department [address] [place] [id number] Patient: JULIA YAO /Age/Sex: 1950 - 71 - F Unit#: [id number] Location/Status: SPDICATLS/REG CLI Mnemonic/Ordering Site: [facility] Ordering Physician: GRACE ALBARRAN MD CT Lung Screening Low Dose - 09/08/21 - 1541 ADDENDUM Lung RADS category 4A, probably suspicious Addendum Dictated By: TITO PATEL MD Addendum Esigned by: TITO PATEL MD Dictated: 09/09/2103/23/1057 Signed:09/09/21 110 ORIGINAL REPORT History: 71-year-old female current smoker [...] CT in 3-6 months recommended to documentstability. 16529 G9637, G9557, G9551 Dictating Physician: TITO PATEL MD Electronically Signed by: TITO PATEL MD Dic Date/Time: 09/08/21 1849 Sign date/Time: 09/08/21 1900 Grace Albarran MD IM CT PROCEDURES Final Result * Colonoscopy (03/06/2020) Colonoscopy no interpretation , abstracted Anatomical Region Laterality Modality Other Historical Provider HEALTH MAINTENANCE Final Result from Last 3 Months or Most Recently Relevant to Health Maintenance Insurance MEDICARE Advance Directives Documents on File Type Date Recorded Patient Instructional Facilitator Expl anation Health Care Decision (hx) 11/19/2021 AD BLOOM DIRECTIVE Health Care Decision (hx) 11/19/2021 AD BLOOM DIRECTIVE Health Care Decision (hx) 11/19/2021 AD BLOOM DIRECTIVE Health Care Decision (hx) 11/19/2021 AD BLOOM DIRECTIVE Health Care Decision (hx) 11/19/2021 AD BLOOM DIRECTIVE Health Care Decision (hx) 11/19/2021 AD BLOOM DIRECTIVE Health Care Decision (hx) 11/19/2021 AD BLOOM DIRECTIVE Care Teams Field Support Representative Relationship Specialty Start Date End Date Maria L Tabor MD [address] [place] [id number] PCP - General Internal Medicine 08/14/20
--- OUTSIDE RECORDS SUMMARY | 2024-08-21 17:12 | XMS_ITS | Clinical Summary ---
Author Organization [facility] Address [address] [place] [address] Care Team Providers Care Strip Machine Operator Name Role Phone Unknown Primary Care Provider [phone] -[phone] Allergies No known active allergies Medications benzonatate (TESSALON) 200 MG capsuleIndicati ons:Bronchitis Take 1 capsule (200 mg total) by mouth 3 (three) times a day as needed for cough. 21 capsule 07/14/2022 Active albuterol (PROVENTIL HFA; VENTOLIN HFA) 108 (90 Base) MCG/ACT inhalerIndicati ons:Bronchitis Inhale 2 puffs 4 times daily (every 6 hours) as needed for wheezing. 1 each 07/14/2022 Active predniSONE (DELTASONE) 50 MG tabletIndicatio ns:Bronchitis Take 1 tablet (50 mg total) by mouth daily. With food. 5 tablet 07/14/2022 Active doxycycline (VIBRAMYCIN) 100 MG capsuleIndicati ons:Bronchitis Take 1 capsule (100 mg total) by [...] on patient's age to complete this topic Insurance MEDICARE PART A & B Care Teams Strip Machine Operator Relationship Specialty Start Date End Date Unknown Unknow Provider Address PCP - General 05/02/22
--- OUTSIDE RECORDS SUMMARY | 2024-08-21 17:12 | XMS_ITS | Encounter Summary ---
Author Organization [facility] Address [address] [place] [address] Care Team Providers Care Clerical Associate Name Role Phone Unknown Primary Care Provider [phone] Encounter Details Date Type Department Care Team (Late st Contact Info) Description 07/14/2022 4:04 PM EDT Hospital Encounter [facility] [address] [place] [address] Mack Pleitez MD [address] [place] [id number] Social History Tobacco Use Types Packs/Day Years [...] lobectomy. No acute process. Clau Simon PA-C IMThu DIAGNOSTIC IMAGING OR DERABLES Final Result documented in this encounter Visit Diagnoses Not on filedocumented in this encounter Care Teams Clerical Associate Relationship Specialty Start Date End Date Unknown Unknow Provider Address PCP - General 05/02/22 documented as of this encounter
== END 2024-08-21 16:06 | disposition home or self-care (01) ==
LOC: HO.HOP 14:20
PROVIDERS: PCP Internal Medicine; Visit Provider Clinical Nurse Specialist Psychiatric/Mental Health
DX: F43.21 Adjustment disorder with depressed mood (principal); F41.1 Generalized anxiety disorder; F33.41 Major depressive disorder, recurrent, in partial remission
CPT/HCPCS: 99214

== ENCOUNTER → 2024-08-21 14:20 | Outpatient (BNVA) | payer MEDICARE, OTHER, SELFPAY | PROVIDERS: PCP Internal Medicine; Visit Provider Clinical Nurse Specialist Psychiatric/Mental Health | DX: F33.41 Major depressive disorder, recurrent, in partial remission (principal); F43.21 Adjustment disorder with depressed mood; F41.1 Generalized anxiety disorder; Z71.89 Other specified counseling | CPT/HCPCS: 99212 ==

== ENCOUNTER 2024-09-18 13:29 | Outpatient (AMB) | payer MEDICARE, OTHER, SELFPAY ==
--- NOTE | 2024-09-18 13:58 | A.OFFPSYCH_ITS ---
Intake Intake Visit Reasons: depression Business Representative Required: No Allergies No Known Allergies Allergy (Verified 07/15/23 15:16) Medication List - Last Reconciled 09/18/24 by Julia Parikh APRN aripiprazole 2 mg PO DAILY atorvastatin 80 mg PO QPM bupropion HCl XL 300 mg PO DAILY escitalopram oxalate 20 mg PO DAILY gabapentin 300 mg PO TID levothyroxine 88 mcg PO DAILY lorazepam 0.5 mg PO TID PRN trazodone watch for over-sedation; take 1- 2 tablets daily at BEDTIME as needed for sleep valsartan-hydrochlorothiazide 320-25 mg 1 tab PO DAILY HPI- Psychiatric Chief Complaint: depression HPI Narrative: pt here for follow up for depression, anxiety and insomnia pt reports some improvement she continues to have high level of stress with her sister being unable to care for herself pt is helping her sister pt gets support from her Congregation and sikh friends group pts sister in law recently dx with glioblastoma and pt sadmarcello worried pt reports adherence to meds no side effects she denies SI or hI Past Psychiatric History: 1-[facility] age 22 depression 1- PHP in 2019 referred by [facility], no SI x 2 weeks, 4 months ago depression increased severely, new onset of severe anxiety, [facility] and completed 20 days before she really felt much better; depression was very deep, Dr. Langley made a med change there, she reports she had passive SI for weeks before going, no active SI; depression symptoms included not getting out of bed, not eating, no interest, low energy, low motivation; severe anxiety with anxiety attacks Pt says she has always had depression her whole life; had a severe bout of post depression at age 22 and [place] [facility] [place] ,no hospitalizations after that; lost her first child 21 yrs ago when her daughter in a MVA; She lost another daughter 2 yrs ago from an accidental overdose on heroin and fentanyl; her daughter Patsy of an opiate overdose on mother's day in 2013; her daughter had been doing well and in recovery and her was a shock; her was having open heart surgery at the same time and her older daughter was going through a divorce; pt reports she felt numb and probably didn't grieve; she lost 18 lbs in 3 months, 25 years on Prozac which worked well up until a few months ago; symptoms when very depression - not getting out of bed, no lunch with friends Subjective Subjective Subjective Medication Compliance: Yes Side effects from medications: No Review of Systems Medical Review of Systems: unchanged Mental Status Exam Mental Status Exam Patient Appearance: Well Grooomed and Appropriate Patient Orientation: Person, Place, Time and Situation Level of Consciousness: Awake and Appropriate Patient Behavior: Appropriate Mood Description: Appropriate, Cheerful, Anxious and Sad Affect Description: Appropriate, Cheerful, Anxious and Sad Patient Cognition Impaired: No Ability to Follow Directions: Good Speech Pattern: Clear and Appropriate Memory Description: Intact Hallucinations: None Delusions: Not Present Thought Process: Intact and Goal Oriented Thought Content: positive for Intact and positive for Goal Oriented Judgement: Good Assessment and Plan Assessment & Plan (1) Complicated grief: Status: Acute Code(s): F43.21 - Adjustment disorder with depressed mood (2) STEVE (generalized anxiety disorder): Status: Acute Code(s): F41.1 - Generalized anxiety disorder (3) Major depression, recurrent: Status: Acute Qualifiers: Active/Remission status: in partial remission Qualified Code(s): F33.41 - Major depressive disorder, recurrent, in partial remission Code(s): F33.9 - Major depressive disorder, recurrent, unspecified Plan continue medications as per below discussed very slow taper in future when stress is lower pt in agreement return fo r follow up in 8 weeks Medications: Refilled aripiprazole 2 mg PO DAILY 90 tabs 1RF escitalopram oxalate 20 mg PO DAILY 90 tabs 1RF gabapentin 300 mg PO TID 90 caps 3RF trazodone watch for over-sedation; take 1- 2 tablets daily at BEDTIME as needed for sleep 180 tabs 1RF sleep bupropion HCl XL 300 mg PO DAILY 90 tabs 1RF lorazepam 0.5 mg PO TID PRN 90 tabs 3RF anxiety Counseling and coordination of Care Details: I spent [] minutes reviewing the record, seeing the patient and documenting in the medical record. Counseling provided to the patient/caregiver as outlined below. Addressed patient/caregiver concerns regarding current medication regime including effective adherence. Addressed patient/caregiver concerns regarding diagnosis and prognosis including accuracy of diagnosis, prognosis over time, impact of diagnosis. Addressed patient/caregiver concerns regarding impact of recent s tressors. [facility] Medical History (Updated 05/15/24 @ 15:28 by Julia Parikh APRN) Lung cancer Social History: lives with ; has one adult daughter and two grandchildren. Lost one daughter in 1998 from MVA. lost another daughter from accidental overdose on opiates in 2017. Substance History: none Trauma History: Lost one daughter Clover in 1998 from MVA. lost another daughter Patsy from accidental overdose on opiates in 2017. Coding Level of Care Code Est Pt Level 4 (58796) Diagnoses Complicated grief F43.21 STEVE (generalized anxiety disorder) F41.1 Recurrent major depressive disorder, in partial remission F33.41 Active/Remission status: in partial remission
--- OUTSIDE RECORDS SUMMARY | 2024-09-18 14:39 | XMS_ITS | Encounter Summary ---
Author Organization [facility] Address [address] [place] [address] Care Team Providers Care Physician Office Specialist Name Role Phone Hermes Tabor MD Primary Care Provider [phone] Grace Siegel MD Unavailable James Ramos PA-C Unavailable [phone] Lazara Christian PA-C Unavailable [phone] Reason for Visit * Reason Comments E-prescribe Rx Request Encounter Details Date Type Department Care Team Description 06/02/2021 Refill Adult Medicine - [address] [address] Deisy Villanueva PA-C E-prescribe Rx Request Social History Tobacco Use Types Packs/Day Years Used Date Smoking Tobacco: Every Day Cigarettes 0.8 52 Smokeless Tobacco: Never Comments:has quit 10-12 time s, restarts due to stressors, longest quit 7 years Alcohol Use Standard Drinks/Week Comments Yes 0 (1 standard drink = 0.6 oz pure alcohol) wine glass with lunch or dinner Sex Assigned at Date Recorded Not on file Job Start Date Occupation Industry Not on file Not on file Not on file documented as of this encounter Miscellaneous Notes * Telephone Encounter - Es ward Kristy - 06/03/2021 1:29 PM EST Patient would like script to be: E-PRESCRIBED/FAXED TO PHARMACY WHEN WAS THE PATIENT'S LAST APPOINTMENT IN ADULT MEDICINE? 12/23/20 WHEN WAS THE LAST TIME THE PATIENT SAW THEIR PCP? workforce management manager Does patient have an upcoming appointment? Yes 2/ / (THE MEDICATION REQUESTED IS ON THE MED LIST ABOVE) All of the medications requested were on the CURRENT MEDS list Did you check the Pharmacy information above?: YES Patient wants: 30 -day supply Is this a mail order prescription request ? NO If the refill is from a FAXED refill request what is the RX # listed on the fax? N/A Patients current insurance carrier is: [place] / [place] / Product Type: MEDICARE [id number] documented in this encounter Plan of Treatment Not on file documented as of this encounter Visit Diagnoses Diagnosis Hypothyroidism, unspecified type documented in this encounter Care Teams Physician Office Specialist Relationship Specialty Start Date End Date Hermes Tabor MD [address] [place] [address] PCP - General Internal Medicine 08/14/20 Grace Siegel MD [address] [place] [address] Specialist Lung Cancer Administrative Law Judge 11/23/21 James Ramos PA-C [address] [phone] Specialist Thoracic Surgery 07/02/22 Lazara Christian PA-C [address] [phone] Thoracic Surgery 01/19/24 documented as of this encounter
--- OUTSIDE RECORDS SUMMARY | 2024-09-18 14:39 | XMS_ITS | Encounter Summary ---
Author Organization [facility] Address [address] [place] [address] Care Team Providers Care Bicycle Messenger Name Role Phone Hermes Tabor MD Primary Care Provider [phone] Grace Siegel MD Unavailable James Ramos PA-C Unavailable [phone] Lazara Christian PA-C Unavailable [phone] Encounter Details Date Type Department Care Team Description 09/09/2021 Orders Only [facility] Thoracic Surgery [place] 299 [facility] [address] [place] [phone] Grace Siegel MD 299 [facility] [place] [address] [place] [id number] History of tobacco use, presenting hazards to health Social History Tobacco Use Types Packs/Day Years [...] file Not on file Not on file COVID-19 Exposure Response Date Recorded In the last 10 days, have yo u been in contact with someone who was confirmed or suspected to have Coronavirus/COVID-19? No / Unsure 09/08/2021 1:47 PM EDT documented as of this encounter Plan of Treatment Not on file documented as of this encounter Procedures Procedure Name Priority Date/Time Associated Diagnosis Comments CT LOW DOSE LUNG SCREEN ANNUAL Routine 09/08/2021 History of tobacco use, presenting hazards to health documented in this encounter Results * CT LOW DOSE LUNG SCREEN ANNUAL (09/08/2021) Grace Siegel MD CT SCANS documented in this encounter Visit Diagnoses Diagnosis History of tobacco use, presenting hazards to health Personal history of tobacco use, presenting hazards to health documented in this encounter Care Teams Bicycle Messenger Relationship Specialty Start Date End Date Hermes Tabor MD [address] [place] [address] PCP - General Internal Medicine 08/14/20 Grace Siegel MD [address] [place] [address] Specialist Lung Cancer Emergency Man 11/23/21 James Ramos PA-C [address] [phone] Specialist Thoracic Surgery 07/02/22 Lazara Christian PA-C [address] [phone] Thoracic Surgery 01/19/24 documented as of this encounter
--- OUTSIDE RECORDS SUMMARY | 2024-09-18 14:39 | XMS_ITS | Encounter Summary ---
Author Organization [facility] Address [address] [place] [address] Care Team Providers Care Hogshead Inspector Name Role Phone Hermes Tabor MD Primary Care Provider [phone] Grace Siegel MD Unavailable James Ramos PA-C Unavailable [phone] Lazara Christian PA-C Unavailable [phone] Encounter Details Date Type Department Care Team Description 10/16/2021 Orders Only Medical Records [address] [place] [address] Grace Siegel MD [address] [address] Social History Tobacco Use Types Packs/Day Years [...] suspected to have Coronavirus/COVID-19? Unable to assess 10/16/2021 2:39 PM EDT documented as of this encounter Plan of Treatment Not on file documented as of this encounter Procedures Procedure Name Priority Date/Time Associated Diagnosis Comments OUTSIDE PLAIN FILM Routine 10/16/2021 documented in this encounter Results * OUTSIDE PLAIN FILM (10/16/2021) Grace Siegel MD RADIOLOGY documented in this encounter Visit Diagnoses Not on filedocumented in this encounter Care Teams Hogshead Inspector Relationship Specialty Start Date End Date Hermes Tabor MD [address] [place] [address] PCP - General Internal Medicine 08/14/20 Grace Siegel MD [address] [place] [address] Specialist Lung Cancer Wood Preparation Supervisor 11/23/21 James Ramos PA-C [address] [place] [phone] Specialist Thoracic Surgery 07/02/22 Lazara Christian PA-C [address] [phone] Thoracic Surgery 01/19/24 documented as of this encounter
--- OUTSIDE RECORDS SUMMARY | 2024-09-18 14:39 | XMS_ITS | Encounter Summary ---
Author Organization [facility] Address [address] [place] [address] Care Team Providers Care Boarding Specialist Name Role Phone Hermes Tabor MD Primary Care Provider [phone] Grace Siegel MD Unavailable James Ramos PA-C Unavailable [phone] Lazara Christian PA-C Unavailable [phone] Encounter Details Date Type Department Care Team Description 01/12/2024 Orders Only [facility] Thoracic Surgery [place] 299 [facility] [address] [place] [phone] James Rmaos PA-C 299 [facility] [place] [address] [place] [phone] History of lung cancer Social History Tobacco Use Types Packs/Day Years Used Date Smoking Tobacco: Former Cigarettes 0.8 52 Q uit: 09/30/2021 Smokeless Tobacco: Never Alcohol Use Standard Drinks/Week Comments Yes 0 (1 standard drink = 0.6 oz pure alcohol) wine glass with lunch or dinner Sex Assigned at Date Recorded Not on file Job Start Date Occupation Industry Not on file Not on file Not on file documented as of this encounter Plan of Treatment Not on file documented as of this encounter Procedures Procedure Name Priority Date/Time Associated Diagnosis Comments CAT SCAN OF CHEST NO CONTRAST Routine 01/11/2024 History of lung cancer documented in this encounter Results * CAT SCAN OF CHEST NO CONTRAST (01/11/2024) 01/11/2024 James Ramos PA-C CT SCANS [facility] documented in this encounter Visit Diagnoses Diagnosis History of lung cancer Personal history of malignant neoplasm of bronchus and lung documented in this encounter Care Teams Boarding Specialist Relationship Specialty Start Date End Date Hermes Tabor MD [address] [place] [address] PCP - General Internal Medicine 08/14/20 Grace Siegel MD [address] [place] [address] Specialist Lung Cancer Proposal Specialist 11/23/21 James Ramos PA-C [address] [phone] Specialist Thoracic Surgery 07/02/22 Lazara Christian PA-C [address] [phone] Thoracic Surgery 01/19/24 documented as of this encounter
--- OUTSIDE RECORDS SUMMARY | 2024-09-18 14:39 | XMS_ITS | Encounter Summary ---
Author Organization [facility] Address [address] [place] [address] Care Team Providers Care Jewel Bearing Broacher Name Role Phone Hermes Tabor MD Primary Care Provider Grace Siegel MD Unavailable James Ramos PA-C Unavailable [phone] Lazara Christian PA-C Unavailable [phone] Encounter Details Date Type Department Care Team Description 03/27/2022 Refill Adult Medicine - [address] [address] Ángel Terry PA-C [address] [place] [address] [id number] Social History Tobacco Use Types Packs/Day Years Used Date Smoking Tobacco: Former Cigarettes 0.8 52 Q uit: 09/30/2021 Smokeless Tobacco: Never Comments:has quit 10-12 time [...] suspected to have Coronavirus/COVID-19? No / Unsure 03/17/2022 3:20 PM EST documented as of this encounter Plan of Treatment Not on file documented as of this encounter Visit Diagnoses Not on filedocumented in this encounter Care Teams Jewel Bearing Broacher Relationship Specialty Start Date End Date Hermes Tabor MD [address] [place] [address] PCP - General Internal Medicine 08/14/20 Grace Siegel MD [address] [place] [address] Specialist Lung Cancer Business Center Attendant 11/23/21 James Ramos PA-C [address] [phone] Specialist Thoracic Surgery 07/02/22 Lazara Christian PA-C [address] [phone] Thoracic Surgery 01/19/24 documented as of this encounter
--- OUTSIDE RECORDS SUMMARY | 2024-09-18 14:39 | XMS_ITS | Encounter Summary ---
Author Organization [facility] Address [address] [place] [address] Care Team Providers Care Tractor Operator Name Role Phone Hermes Tabor MD Primary Care Provider [phone] Grace Siegel MD Unavailable James Ramos PA-C Unavailable [phone] Lazara Christian PA-C Unavailable [phone] Encounter Details Date Type Department Care Team Description 11/17/2021 Orders Only Medical Records [address] [place] [address] Lazara Christian PA-C [address] [phone] Social History Tobacco Use Types Packs/Day Years [...] suspected to have Coronavirus/COVID-19? Unable to assess 11/17/2021 4:24 PM EDT documented as of this encounter Plan of Treatment Not on file documented as of this encounter Procedures Procedure Name Priority Date/Time Associated Diagnosis Comments OUTSIDE PLAIN FILM Routine 11/17/2021 documented in this encounter Results * OUTSIDE PLAIN FILM (11/17/2021) Lazara Christian PA-C RADIOLOGY documented in this encounter Visit Diagnoses Not on filedocumented in this encounter Care Teams Tractor Operator Relationship Specialty Start Date End Date Hermes Tabor MD [address] [place] [address] PCP - General Internal Medicine 08/14/20 Grace Siegel MD [address] [place] [address] Specialist Lung Cancer Apple Turner 11/23/21 James Ramos PA-C [address] [phone] Specialist Thoracic Surgery 07/02/22 Lazara Christian PA-C [address] [phone] Thoracic Surgery 01/19/24 documented as of this encounter
--- OUTSIDE RECORDS SUMMARY | 2024-09-18 14:39 | XMS_ITS | Encounter Summary ---
Author Organization [facility] Address [address] [place] [address] Care Team Providers Care Gas Compressor Operator Name Role Phone Hermes Tabor MD Primary Care Provider [phone] Grace Siegel MD Unavailable James Ramos PA-C Unavailable [phone] Lazara Christian PA-C Unavailable [phone] Encounter Details Date Type Department Care Team Description 12/22/2023 Pt. Non Urgent Medic al Question Adult Medicine - [place] [address] [place] [address] Hermes Tabor MD [address] [place] [address] Social History Tobacco Use Types Packs/Day Years [...] encounter Miscellaneous Notes * Telephone Encounter - Maria L Simon M.A. - 12/23/2023 10:00 AM EDTFrom: Julia Gaines To: Jordan Tabor Sent: 12/22/2023 7:24 PM EDT Subject: valsartan-hydrochlorothiacide Why have you denied this med? Julia Gaines documented in this encounter Plan of Treatment Not on file documented as of this encounter Visit Diagnoses Not on filedocumented in this encounter Care Teams Gas Compressor Operator Relationship Specialty Start Date End Date Hermes Tabor MD [address] [place] [address] PCP - General Internal Medicine 08/14/20 Grace Siegel MD [address] [place] [address] Specialist Lung Cancer Thermostat Maker 11/23/21 James Ramos PA-C [address] [place] [phone] Specialist Thoracic Surgery 07/02/22 Lazara Christian PA-C [address] [phone] Thoracic Surgery 01/19/24 documented as of this encounter
--- OUTSIDE RECORDS SUMMARY | 2024-09-18 14:39 | XMS_ITS | Encounter Summary ---
Author Organization [facility] Address [address] [place] [address] Care Team Providers Care Lime Spreader Name Role Phone Cabrera Pride MD Primary Care Provider Carla Tabor Ch MD Primary Care Provider Grace Siegel MD Unavailable James Ramos PA-C Unavailable [phone] Lazara Christian PA-C Unavailable [phone] Encounter Details Date Type Department Care Team Description 12/24/2019 Orders Only Gastroenterology - [address] [place] [address] Ian Rivera MD [address] [place] [address] [id number] Chronic diarrhea Social History Tobacco Use Types Packs/Day Years [...] on file documented as of this encounter Progress Notes * Shani Rivera MD - 12/30/2019 2:30 PM EDT The x-ray does not show any significant stool. Therefore, the diarrhea most likely is genuine. We need to check stool studies. I am putting orders for labs. The patient needs to go to the lab to pickup stool containers and bring it back to them. documented in this encounter Plan of Treatment Not on file documented as of this encounter Procedures Procedure Name Priority Date/Time Associated Diagnosis Comments CHG RADIOLOGIC EXAM ABDOMEN 2 VIEWS Routine 12/21/2019 Chronic diarrhea documented in this encounter Results * RADIOLOGIC EXAM ABDOMEN 2 VIEWS (12/21/2019) H Dhaval Rivera MD RADIOLOGY documented in this encounter Visit Diagnoses Diagnosis Chronic diarrhea Diarrhea documented in this encounter Care Teams Lime Spreader Relationship Specialty Start Date End Date Cabrera Pride MD PCP - General Internal Medicine 10/06/17 08/13/20 Hermes Tabor MD [address] [place] [address] PCP - General Internal Medicine 08/14/20 Grace Siegel MD [address] [place] [address] Specialist Lung Cancer Youth Corrections Officer 11/23/21 James Ramos PA-C [address] [phone] Specialist Thoracic Surgery 07/02/22 Lazara Christian PA-C [address] [phone] Thoracic Surgery 01/19/24 documented as of this encounter
--- OUTSIDE RECORDS SUMMARY | 2024-09-18 14:39 | XMS_ITS | Encounter Summary ---
Author Organization [facility] Address [facility] [place] [address] Care Team Providers Care Procedural Nurse Name Role Phone Hermes Tabor MD Primary Care Provider [phone] Grace Siegel MD Unavailable James Ramos PA-C Unavailable [phone] Lazara Christian PA-C Unavailable [phone] Encounter Details Date Type Department Care Team Description 12/20/2023 Refill Adult Medicine - [place] [address] [place] [address] Ángel Terry PA-C [address] [place] [address] Social History Tobacco Use Types Packs/Day Years [...] as of this encounter Visit Diagnoses Diagnosis Hypertension, unspecified type documented in this encounter Care Teams Procedural Nurse Relationship Specialty Start Date End Date Hermes Tabor MD [address] [place], [place] PCP - General Internal Medicine 08/14/20 Grace Siegel MD [address] [place] [address] Specialist Lung Cancer Jeeper Operator 11/23/21 James Ramos PA-C [address] [phone] Specialist Thoracic Surgery 07/02/22 Lazara Christian PA-C [address] [phone] Thoracic Surgery 01/19/24 documented as of this encounter
--- OUTSIDE RECORDS SUMMARY | 2024-09-18 14:39 | XMS_ITS | Encounter Summary ---
Author Organization [facility] Address [address] [place] [address] Care Team Providers Care Stiff Leg Derrick Operator Name Role Phone Hermes Tabor MD Primary Care Provider Grace Siegel MD Unavailable James Ramos PA-C Unavailable Lazara Christian PA-C Unavailable [phone] Encounter Details Date Type Department Care Team Description 11/23/2021 Orders Only [facility] Thoracic Surgery [place] 299 [facility] [address] [place] [phone] James Ramos PA-C 299 [facility] [place] [address] [place] [phone] Malignant neoplasm of upper lobe of right lung (HCC) Social History Tobacco Use Types Packs/Day Years [...] suspected to have Coronavirus/COVID-19? No / Unsure 11/23/2021 1:06 PM EDT documented as of this encounter Plan of Treatment Not on file documented as of this encounter Procedures Procedure Name Priority Date/Time Associated Diagnosis Comments CHG RADIOLOGIC EXAM CHEST 2 VIEWS Routine 11/23/2021 Malignant neoplasm of upper lobe of right lung (HCC) documented in this encounter Results * RADIOLOGIC EXAM CHEST 2 VIEWS (11/23/2021) James Ramos PA-C RADIOLOGY Performing Organization Address City/State/[facility] Co tx Phone Number [facility] documented in this encounter Visit Diagnoses Diagnosis Malignant neoplasm of upper lobe of right lung (HCC) Malignant neoplasm of upper lobe, bronchus or lung documented in this encounter Care Teams Stiff Leg Derrick Operator Relationship Specialty Start Date End Date Hermes Tabor MD [address] [place] [address] PCP - General Internal Medicine 08/14/20 Grace Siegel MD [address] [place] [address] Specialist Lung Cancer Animal Science Professor 11/23/21 James Ramos PA-C [address] [phone] Specialist Thoracic Surgery 07/02/22 Lazara Christian PA-C [address] [phone] Thoracic Surgery 01/19/24 documented as of this encounter
--- OUTSIDE RECORDS SUMMARY | 2024-09-18 14:39 | XMS_ITS | Encounter Summary ---
Author Organization [facility] Address [address] [place] [address] Care Team Providers Care Sql Analyst Name Role Phone Unknown Primary Care Provider [phone] Encounter Details Date Type Department Care Team (Late st Contact Info) Description 07/14/2022 4:04 PM EDT Hospital Encounter [facility] [address] [place] [address] Mack Pleitez MD [address] [place] [address] Social History Tobacco Use Types Packs/Day Years [...] on filedocumented in this encounter Care Teams Sql Analyst Relationship Specialty Start Date End Date Unknown Unknow Provider Address PCP - General 05/02/22 documented as of this encounter
--- OUTSIDE RECORDS SUMMARY | 2024-09-18 14:39 | XMS_ITS | Encounter Summary ---
Author Organization [facility] Address [address] [place] [address] Care Team Providers Care Apprentice Electrician Name Role Phone Maria L Tabor MD Primary Care Prov ider Reason for Visit * Reason Onset Date Comments Med Refill 09/13/2024 Encounter Details Date Type Department Care Team (Late st Contact Info) Description 09/13/2024 Telephone Urogynecology - [place] [address]/ [place] [id number] Marli Hart MD [address] [place] [address] [place] [address] Med Refill Social History Tobacco Use Types Packs/Day Years Used Date Smoking Tobacco: Former Cigarettes Q uit: 09/30/2021 Smokeless Tobacco: Never Alcohol Use Standard Drinks/Week Comments Yes 0 (1 standard drink = 0.6 oz pur e alcohol) Comments No Sex and Gender Information Value Date Recorded Sex Assigned at Female 08/24/2024 9:00 AM EDT Legal Sex Female 5:27 AM EST Gender Identity Female 08/24/2024 9:00 AM EDT Sexual Orientation Choose not to disclose 2024 9:00 AM EDT documented as of this encounter Progress Notes * Rani Fraser - 09/13/2024 3:38 PM EDT Refills not on Current Medication List Patient would like script to be: E-PRESCRIBED/FAXED TO PHARMACY BY THE END OF THE DAY (THE MEDICATION REQUESTED IS NOT ON THE MED LIST ABOVE) One or some of the medications requested were on the HISTORICAL MED list PREFERRED PHARMACY: [facility]/pharmacy #[id number] - [place], [place] - [address] [address] [id number] - [place], [place] - [address] [id number] [facility] [address] Med name: SOLIFENACIN SUCCINATE 5MG TABS Dosage: 5MG # of tablets: 30 Instructions: TAKE ONE TABLET BY MOUTH EVERY DAY Patient wants: 30-day supply Is this a mail order prescription request?: no Did you check the Pharmacy information above?: yes Patients current insurance carrier is: Payor: MEDICARE / Plan: MEDICARE PART A & B / Product Type: Medicare / Insurance ID #: @[email or web address]@ documented in this encounter Plan of Treatment Not on file documented as of this encounter Visit Diagnoses Not on filedocumented in this encounter Care Teams Apprentice Electrician Relationship Specialty Start Date End Date Maria L Tabor MD [address] [place] [address] PCP - General Internal Medicine 08/14/20 documented as of this encounter
--- OUTSIDE RECORDS SUMMARY | 2024-09-18 14:39 | XMS_ITS | Encounter Summary ---
Author Organization [facility] Address [address] [place] [address] Care Team Providers Care Traveling Sales Executive Name Role Phone Hermes Tabor MD Primary Care Provider [phone] Grace Siegel MD Unavailable James Ramos PA-C Unavailable [phone] Lazara Christian PA-C Unavailable [phone] Encounter Details Date Type Department Care Team Description 10/10/2023 Pt. Non Urgent Medic al Question Adult Medicine - [place] [address] [place] [address] Hermes Tabor MD [address] [place] [address] Social History Tobacco Use Types Packs/Day Years [...] Encounter - Maria L Simon M.A. - 10/11/2023 9:01 AM EDTFrom: Julia Gaines To: Jordan Tabor Sent: 10/10/2023 11:43 AM EDT Subject: Synthesis and atorvastatin Why are my medication refills being denied? documented in this encounter Plan of Treatment Not on file documented as of this encounter Visit Diagnoses Not on filedocumented in this encounter Care Teams Traveling Sales Executive Relationship Specialty Start Date End Date Hermes Tabor MD [address] [place] [address] PCP - General Internal Medicine 08/14/20 Grace Siegel MD [address] [place] [address] Specialist Lung Cancer Biofuels Processing Technician 11/23/21 James Ramos PA-C [address] [phone] Specialist Thoracic Surgery 07/02/22 Lazara Christian PA-C [address] [phone] Thoracic Surgery 01/19/24 documented as of this encounter
--- OUTSIDE RECORDS SUMMARY | 2024-09-18 14:39 | XMS_ITS | Encounter Summary ---
Author Organization [facility] Address [address] [place] [address] Care Team Providers Care Hosiery Mater Name Role Phone Hermes Tabor MD Primary Care Provider [phone] Grace Siegel MD Unavailable James Ramos PA-C Unavailable [phone] Lazara Christian PA-C Unavailable [phone] Encounter Details Date Type Department Care Team Description 06/30/2023 Refill Adult Medicine - [place] [address] [place] [address] Ángel Terry PA-C [address] [place] [address] Social History Tobacco Use Types Packs/Day Years Used Date Smoking Tobacco: Former Cigarettes 0.8 52 Q uit: 09/30/2021 Smokeless Tobacco: Never Comments:has quit 10-12 time s, restarts due to stressors, longest quit 7 years, has cigarette no & then Alcohol Use Standard Drinks/Week Comments Yes 0 [...] type documented in this encounter Care Teams Hosiery Mater Relationship Specialty Start Date End Date Hermes Tabor MD [address] [place] [address] PCP - General Internal Medicine 08/14/20 Grace Siegel MD [address] [place] [address] Specialist Lung Cancer Saw Boss 11/23/21 James Ramos PA-C [address] [phone] Specialist Thoracic Surgery 07/02/22 Lazara Christian PA-C [address] [phone] Thoracic Surgery 01/19/24 documented as of this encounter
--- OUTSIDE RECORDS SUMMARY | 2024-09-18 14:39 | XMS_ITS | Encounter Summary ---
Author Organization [facility] Address [address] [place] [address] Care Team Providers Care Baby Sitter Name Role Phone Hermes Tabor MD Primary Care Provider [phone] Grace Siegel MD Unavailable James Ramos PA-C Unavailable [phone] Lazara Christian PA-C Unavailable [phone] Encounter Details Date Type Department Care Team Description 11/19/2021 Orders Only Medical Records [address] [place] [address] James Ramos PA-C [address] [phone] Social History Tobacco Use Types [...] Associated Diagnosis Comments OUTSIDE PLAIN FILM Routine 11/19/2021 documented in this encounter Results * OUTSIDE PLAIN FILM (11/19/2021) James Ramos PA-C RADIOLOGY documented in this encounter Visit Diagnoses Not on filedocumented in this encounter Care Teams Baby Sitter Relationship Specialty Start Date End Date Hermes Tabor MD [address] [place] [address] PCP - General Internal Medicine 08/14/20 Grace Siegel MD [address] [place] [address] Specialist Lung Cancer Swimming Teacher 11/23/21 James Ramos PA-C [address] [phone] Specialist Thoracic Surgery 07/02/22 Lazara Christian PA-C [address] [phone] Thoracic Surgery 01/19/24 documented as of this encounter
--- OUTSIDE RECORDS SUMMARY | 2024-09-18 14:39 | XMS_ITS | Encounter Summary ---
Author Organization [facility] Address [address] [place] [address] Care Team Providers Care Iron Guardrail Installer Name Role Phone Hermes Tabor MD Primary Care Provider [phone] Grace Siegel MD Unavailable James Ramos PA-C Unavailable [phone] Lazara Christian PA-C Unavailable [phone] Encounter Details Date Type Department Care Team Description 12/18/2021 Orders Only Adult Medicine - [place] [address] [place] [address] Hermes Tabor MD [address] [place] [address] Malignant neoplasm of unspecified part of right bronchus or lung (HCC) (Primary Dx); Aftercare following surgery for neoplasm; Atelectasis; Atherosclerosis of aorta (HCC); Acquired absence of lung (part of); Personal history of nicotine dependence Social History Tobacco Use Types Packs/Day Years [...] suspected to have Coronavirus/COVID-19? No / Unsure 12/16/2021 10:27 AM EDT documented as of this encounter Plan of Treatment Not on file documented as of this encounter Visit Diagnoses Diagnosis Malignant neoplasm of unspecified part of right bronchus or lung (HCC)- Primary Aftercare following surgery for neoplasm Atelectasis Pulmonary collapse Atherosclerosis of aorta (HCC) Atherosclerosis of aorta Acquired absence of lung (part of) Personal history of nicotine dependence Personal history of tobacco use, presenting hazards to health documented in this encounter Care Teams Iron Guardrail Installer Relationship Specialty Start Date End Date Hermes Tabor MD [address] [place] [address] PCP - General Internal Medicine 08/14/20 Grace Siegel MD [address] [place] [address] Specialist Lung Cancer Astro Technician 11/23/21 James Ramos PA-C [address] [phone] Specialist Thoracic Surgery 07/02/22 Lazara Christian PA-C [address] [phone] Thoracic Surgery 01/19/24 documented as of this encounter
--- OUTSIDE RECORDS SUMMARY | 2024-09-18 14:39 | XMS_ITS | Encounter Summary ---
Author Organization [facility] Address [address] [place] [address] Care Team Providers Care Gas Fitter Helper Name Role Phone Hermes Tabor MD Primary Care Provider [phone] Grace Siegel MD Unavailable James Ramos PA-C Unavailable Lazara Christian PA-C Unavailable [phone] Reason for Visit * Reason Onset Date Comments Durable Medical Equipment 11/24/2021 Charbel t is having severe N&V. Encounter Details Date Type Department Care Team Description 11/24/2021 Telephone [facility] Thoracic Surgery [place] 299 [facility] [address] [place] [phone] James Ramos PA-C 299 [facility] [place] [address] [place] [phone] Durable Medical Equipment (Patient is having severe N&V.) Social History Tobacco Use Types Packs/Day Years [...] PM EDT documented as of this encounter Miscellaneous Notes * Telephone Encounter - James Ramos PA-C - 11/24/2021 2:28 PM EDT Spoke with patient this afternoon over phone. She informs me yesterday evening she began noticing some nausea and 1 episode of vomiting. Patient was informed this may be related to the antibiotic which she That she was taking up until yesterday. Patient was informed I would be sending her a prescription of Zofran tablets to be taken as needed for nausea/vomiting. * Telephone Encounter - Ema Chang M.A. - 11/24/2021 1:23 PM EDT Patients pharmacy is [facility] [place] * Telephone Encounter - Ema Chang M.A. - 11/24/2021 1:17 PM EDT Who is calling? Visiting nurse, Keisha Knott RN, Name of the medication Patient would like medication for N&V. What is the specific problem or interaction? N/A If the patient is having a problem - how long has the problem been going on? 24 hrs Please call Keisha at number above. She did gvie patient some recommendations until she receives the Rx from phamacy. documented in this encounter Plan of Treatment Not on file documented as of this encounter Visit Diagnoses Diagnosis Nausea and vomiting, intractability of vomiting not specified, unspecified vomiting type- Primary documented in this encounter Care Teams Gas Fitter Helper Relationship Specialty Start Date End Date Hermes Tabor MD [address] [place] [address] PCP - General Internal Medicine 08/14/20 Grace Siegel MD [address] [place] [address] Specialist Lung Cancer Endband Cutter Hand 11/23/21 James Ramos PA-C [address] [place] [phone] Specialist Thoracic Surgery 07/02/22 Lazara Christian PA-C [address] [phone] Thoracic Surgery 01/19/24 documented as of this encounter
--- OUTSIDE RECORDS SUMMARY | 2024-09-18 14:39 | XMS_ITS | Encounter Summary ---
Author Organization [facility] Address [address] [place] [address] Care Team Providers Care Bilingual Nanny Name Role Phone Hermes Tabor MD Primary Care Provider Grace Siegel MD Unavailable James Ramos PA-C Unavailable [phone] Lazara Christian PA-C Unavailable [phone] Encounter Details Date Type Department Care Team Description 07/24/2021 Orders Only [facility] Thoracic Surgery [place] 299 [facility] [address] [place] [phone] Grace Siegel MD 299 [facility] [place] [address] [place] [phone] History of tobacco use, presenting hazards to health (Primary Dx) Social History Tobacco Use Types Packs/Day Years [...] Exposure Response Date Recorded In the last month, have you been in contact with someone who was confirmed or suspected to have Coronavirus / COVID-19? No / Unsure 07/16/2021 12:49 PM EDT documented as of this encounter Plan of Treatment Not on file documented as of this encounter Results * CT LOW DOSE LUNG SCREEN ANNUAL (09/08/2021) Grace Siegel MD CT SCANS documented in this encounter Visit Diagnoses Diagnosis History of tobacco use, presenting hazards to health- Primary Personal history of tobacco use, presenting hazards to health documented in this encounter Care Teams Bilingual Nanny Relationship Specialty Start Date End Date Hermes Tabor MD [address] [place] [address] PCP - General Internal Medicine 08/14/20 Grace Siegel MD [address] [place] [address] Specialist Lung Cancer Feeder Operator Automatic 11/23/21 James Ramos PA-C [address] [phone] Specialist Thoracic Surgery 07/02/22 Lazara Christian PA-C [address] [phone] Thoracic Surgery 01/19/24 documented as of this encounter
--- OUTSIDE RECORDS SUMMARY | 2024-09-18 14:39 | XMS_ITS | Encounter Summary ---
Author Organization [facility] Address [facility] [place] [address] Care Team Providers Care Supervisor Fertilizer Name Role Phone Hermes Tabor MD Primary Care Provider Grace Siegel MD Unavailable James Ramos PA-C Unavailable [phone] Lazara Christian PA-C Unavailable [phone] Reason for Visit * Reason Comments E-prescribe Rx Request Encounter Details Date Type Department Care Team Description 09/20/2023 Refill Adult Medicine - [address] [address] Nataly Mead PA-C [address] [place] [id number] E-prescribe Rx Request Social History Tobacco Use [...] encounter Miscellaneous Notes * Telephone Encounter - Ernestina Maier - 09/20/2023 9:08 AM EDT ?? REFILL ?? LAST APPOINTMENT: 08/08/23 ?? LAST TIME WITH PCP: s ?? NEXT APPOINTMENT : 02/14/24 documented in this encounter Plan of Treatment Not on file documented as of this encounter Visit Diagnoses Diagnosis Hypertension, unspecified type documented in this encounter Care Teams Supervisor Fertilizer Relationship Specialty Start Date End Date Hermes Tabor MD [address] [place] [address] PCP - General Internal Medicine 08/14/20 Grace Siegel MD [address] [place] [address] Specialist Lung Cancer Rental Counter Clerk 11/23/21 James Ramos PA-C [address] [phone] Specialist Thoracic Surgery 07/02/22 Lazara Christian PA-C [address] [phone] Thoracic Surgery 01/19/24 documented as of this encounter
--- OUTSIDE RECORDS SUMMARY | 2024-09-18 14:39 | XMS_ITS | Clinical Summary ---
Author Organization [facility] Address [address] [place] [address] Care Team Providers Care Hot Tamale Man Name Role Phone Hermes Tabor MD Primary Care Provider [phone] Grace Siegel MD Unavailable James Ramos PA-C Unavailable Lazara Christian PA-C Unavailable [phone] Allergies No known active allergies Medications Medication Sig Dispensed Refills Start Date End Date Status gabapentin (NEURONTIN) 300 MG capsule Take 300 mg by mouth 4 times daily. Managed by Julia Parikh RN [facility] 0 Active aripiprazole (ABILIFY) 2 MG tablet Take 2 mg by mouth daily. 0 Active escitalopram (LEXAPRO) 20 MG tablet Take 20 mg by mouth daily. 0 Active trazodone (DESYREL) 100 MG tablet Take 100 mg by mouth at bedtime. 0 Active lorazepam (ATIVAN) 0.5 MG tablet TAKE ONE TABLET BY MOUTH TWICE A DAY NEEDED 0 3 Active loperamide (Imodium A-D) 2 MG capsuleIndication s:Incontinence of feces, unspecified fecal incontinence type Take 1 Capsule by mouth 4 times daily as needed for Diarrhea. 60 Capsule 6 4 Active buPROPion (WELLBUTRIN XL) 300 MG 24 hr tablet TAKE ONE TABLET BY MOUTH EVERY DAY IN THE MORNING 0 4 Active folic acid (FOLVITE) 1 MG tablet Take 1 Tablet by mouth daily. 0 Active Turmeric 500 MG Tab Take by mouth. 0 Active valsartan-hydroch lorothiazide (DIOVAN-HCT) 320-25 MG per tabletIndications :Hypertension, unspecified type Take 1 Tablet by mouth daily. 90 Tablet 1 4 Active atorvastatin (LIPITOR) 80 MG tablet Take 1 Tablet by mouth every evening. 90 Tablet 1 4 Active levothyroxine (SYNTHROID, LEVOTHROID) 88 MCG tabletIndications :Hypothyroidism, unspecified type TAKE 1 TABLET BY MOUTH EVERY DAY 90 Tablet 1 4 Active Active Problems Problem Noted Date Multiple pulmonary nodules 01/18/2024 Malignant neoplasm of upper lobe of righ t lung 12/16/2021 Overview: Adenocarcinoma status post lobectomy 11/18/2021 History of lung cancer 11/23/2021 Last Assessment & Plan: Ms. Gaines is a 73 year old female who had a right upper lobectomy in October 2021 for two separate primary lung cancers: stage 1 acinar adenocarcinoma, and a minimally invasive lepidic adenocarcinoma. ?? The patient's most recent surveillance CT chest done on January 11, 2024 shows no new, or worsening, pulmonary nodule or thoracic adenopathy to suggest recurrence or new disease. She has several stable small pulmonary nodules measuring up to 4mm, as well as some stable pleural thickening. ?? Will continue with routine surveillance imaging with a low-dose CT chest in 1 year, December 2024. Patient will have a follow up visit after this scan. Patient told to call with any questions or concerns prior to her next appointment. Pure hypercholesterolemia 09/14/2021 History of colon polyps 04/09/2020 Gastroesophageal reflux disease without esophagitis 04/09/2020 Diverticulosis 03/10/2020 Overview: Sigmoid and descending colon, colonoscopy 03/2020 Hiatal hernia 03/10/2020 Overview: Medium sized, EGD 03/2020 SSBE (short-segment Goldberg's esophagus) 03/10/2020 Overview: Esophageal mucosal changes concerning for this, biopsied EGD 03/2020 Prediabetes 12/07/2019 Leukocytosis 12/07/2019 Change in bowel function 12/06/2019 Family history of diabetes mellitus 08/2019 HLD (hyperlipidemia) 01/10/2019 Depression 04/11/2018 Arthritis 04/11/2018 Overview: Self diagnosed in left foot, left hip, right shoulder. Hypertension 04/11/2018 Hypothyroidism 04/11/2018 Polymyalgia rheumatica 04/11/2018 Overview: Bothered shoulders mostly Trochanteric bursitis of left hip 2017 Resolved Problems Problem Noted Date Resolved Date Pulmonary nodule 1 cm or greater in diameter 12/202101/18/2024 Last Assessment & Plan: 71-year-old woman with a mixed solid/groundglass nodule in the right upper lobe with atypical cells on navigational bronchoscopy with biopsy/brushing/washings. This was not enough to call this out right malignancy and I discussed this with her in great detail. I believe it still quite possible this is a lipidic type of malignancy, adenomatous hyperplasia, or even totally benign. Again, I discussed the diagnosis, staging, and treatment of lung cancer which she seemed understand. We discussed 2 options moving forward. 1 would be continued observation with serial CT scans at 3, 6, and yearly intervals as long as there is no growth or increase in solid component. Second, would be surgical resection which would require a right upper lobectomy before and even knowing for sure that it is a cancer. After long discussion she just wants this nodule out and agrees to a da Adama right upper lobectomy for diagnostic and possible therapeutic purposes. I discussed the risks, benefits, and alternatives in detail which she understood and agreed to proceed. Immunizations Name Administration Dates Next Due COVID-19 (Pfizer) 08/16/2020,07/25/2020 Influenza vaccine high dose age 65 and over 12/31 Pneumoccoccal(Adult) Polysaccharide PPSV23 12/16 Pneumococcal Conjugate PCV-13 02/22/2018 Shingrix (Recombinant zoster vaccine) 01/09/2018 ,09/19/2017 Tdap 07/09/2021 Family History Medical History Relation Name Comments Throat Cancer Brother CAD s/p CABG i ssues start age late 50s, DM II CAD Father [place] age 61 passe d away, DM II CAD Mother s/p CABG, CHF, DM II Cancer of the Lung Paternal Grandfather Depression Sister Relation Name Status Comments Brother Alive Father Mother Paternal Grandfather Sister Alive Social History Tobacco Use Types Packs/Day Years Used Date Smoking Tobacco: Former Cigarettes 0.8 52 Q uit: 09/30/2021 Smokeless Tobacco: Never Tobacco Cessation:Counseling Given: Not Answered Comments:Cheats now and then with cigarettes 01/19/24 Alcohol Use Standard Drinks/Week Comments Yes 0 (1 standard drink = 0.6 oz pure alcohol) wine glass with lunch or dinner Sex Assigned at Date Recorded Not on file Job Start Date Occupation Industry Not on file Not on file Not on file Last Filed Vital Signs Vital Sign Reading Time Taken Comments Blood Pressure 125/81 02/14/2024 1:06 PM EDT Pulse 78 02/14/2024 1:06 PM EDT Temperature 36.7 ??C (98.1 ??F) 02/14/2024 1:06 PM ED T Respiratory Rate 14 01/19/2024 11:0 8 AM EDT Oxygen Saturation 98% 01/19/2024 11: 08 AM EDT Inhaled Oxygen Concentration - - Weight 61.1 kg (134 lb 12.8 oz) 02/14/2024 1:06 PM EDT Height 157.5 cm (5' 2 ) 02/14/2024 1:06 PM EDT Body Mass Index 24.66 02/14/2024 1:06 PM EDT Plan of Treatment Health Maintenance Due Date Last Done Comments HEPATITIS C SCREENING 1970 MAMMOGRAM 05/29/2022 05/29/2021, 05/03 (External Completion) COLON CANCER SCREENING 03/06/2023 , 03/06/2020 (Completed) BONE DENSITY SCREENING 09/10/2023 09/09/2021 Covid-19 Vaccine (2022-06 4 season) 2024 08/16/2020, 07/25/2020 DEPRESSION SCREEN 02/05/2024 02/04/2023, 04/11/2018 FALL RISK ASSESSMENT 02/05/2024 02/04/2023, 02/04/2023, 12/23/2020, Additional history exists INFLUENZA (Season Ended) 2024 01/10/2019, 01/31 Lung Cancer Screening (Low D ose CT) 01/10/2025 01/11/2024, 07/11/2023, 01/07/2023, Additional history exists CHOLESTEROL SCREENING 06/29/2028 06/30/2023 , 07/09/2021, 06/23/2020, Additional history exists DTAP/TDAP/TD (2 - Td or Tdap) 07/10/2031 07/09/2021 SHINGLES VACCINE Completed 01/09/2018, 09/19/2017 PNEUMOCOCCAL VACCINE Completed 12/16/2021, 02/23/20 18 Advance Directives For more information, please contact: [phone] Latest Code Status on File Code Status Date Activated Date Inactivated Comments Full Code 02/04/2023 1:48 PM MOLST form discussed with patient Care Teams Hot Tamale Man Relationship Specialty Start Date End Date Hermes Tabor MD [address] [place] [address] PCP - General Internal Medicine 08/14/20 Grace Siegel MD [address] [place] [address] Specialist Lung Cancer Manager Safe 11/23/21 James Ramos PA-C [address] [phone] Specialist Thoracic Surgery 07/02/22 Lazara Christian PA-C [address] [place] [phone] Thoracic Surgery 01/19/24
--- OUTSIDE RECORDS SUMMARY | 2024-09-18 14:39 | XMS_ITS | Encounter Summary ---
Author Organization [facility] Address [address] [place] [address] Care Team Providers Care Manager Cafe Name Role Phone Cabrera Pride MD Primary Care Provider Unava kristy Tabor Ch MD Primary Care Provider [phone] Grace Siegel MD Unavailable James Ramos PAGentryC Unavailable [phone] Lazara Christian PA-C Unavailable [phone] Encounter Details Date Type Department Care Team Description 01/21/2020 Orders Only Radiology - [address] [address] Ian Rivera MD [address] [place] [address] [id number] Essential hypertension (Primary Dx) Social History Tobacco Use Types [...] documented as of this encounter Results * CREATININE, BLOOD ASSAY (01/29/2020 1:53 PM EDT) CREAT 0.74 0.5 - 1.1 mg/dL 01/29/2020 4:50 PM EDT [facility] GLOMERULAR FILTRATION RATE > 60 01/29/2020 4:50 PM EDT [facility] Comment: If patient is -Citizen Of [place], multiply result by 1.21 Chronic Kidney Disease: < 60 ml/min/1.73 square meters Kidney Failure: < 15 ml/min/1.73 square meters 01/29/2020 1:53 PM EDT 01/29/2020 1:57 PM EDT H Dhaval Rivera MD LAB [facility] documented in this encounter Visit Diagnoses Diagnosis Essential hypertension- Primary Unspecified essential hypertension documented in this encounter Care Teams Manager Cafe Relationship Specialty Start Date End Date Cabrera Pride MD PCP - General Internal Medicine 10/06/17 08/13/20 Hermes Tabor MD [address] [place] [address] PCP - General Internal Medicine 08/14/20 Grace Siegel MD [address] [place] [address] Specialist Lung Cancer Animal Treatment Investigator 11/23/21 James Ramos PA-C [address] [phone] Specialist Thoracic Surgery 07/02/22 Lazara Christian PA-C [address] [phone] Thoracic Surgery 01/19/24 documented as of this encounter
--- OUTSIDE RECORDS SUMMARY | 2024-09-18 14:39 | XMS_ITS | Clinical Summary ---
Author Organization [facility] Address [address] [place] [address] Care Team Providers Care Imaging Engineer Name Role Phone Unknown Primary Care Provider [...] Bone Density (Females,Ages 65 and older) 2017 COVID-19 Vaccine (3 - 2023-2 5 season) 2024 08/16/2020, 07/25/2020 Influenza Vaccine 11/30/2024 RSV Vaccine 60 years and older and Patients (1 - 1-dose 75+ series) 2027 Hepatitis B Vaccines Aged Out No long er eligible based on patient's age to complete this topic Insurance MEDICARE PART A & B Care Teams Imaging Engineer Relationship Specialty Start Date End Date Unknown Unknow Provider Address PCP - General 05/02/22
--- OUTSIDE RECORDS SUMMARY | 2024-09-18 14:39 | XMS_ITS | Encounter Summary ---
Author Organization [facility] Address [address] [place] [address] Care Team Providers Care Paradichlorobenzene Tender Name Role Phone Hermes Tabor MD Primary Care Provider [phone] Grace Siegel MD Unavailable James Ramos PA-C Unavailable [phone] Lazara Christian PA-C Unavailable [phone] Reason for Visit * Reason Onset Date Comments refill request 06/29/2023 Mychart message Encounter Details Date Type Department Care Team Description 06/29/2023 Telephone Adult Medicine - [place] [address] [place] [address] Hermes Tabor MD [address] [place] [address] refill request ([employer] message) Social History Tobacco Use Types Packs/Day Years [...] Encounter - Maria L Simon M.A. - 06/29/2023 10:57 AM EST Storm and Atorvastatin sent 03/18/23 for 90 day and 1 refill. Pt should have refills on file atthe pharmacy. * Telephone Encounter - Grace Quinones - 06/29/2023 9:30 AM EST Topic: Customer Service. ?? My blood pressure and cholesterol medications have been denied. I need them. Why? I???m almost out. documented in this encounter Plan of Treatment Not on file documented as of this encounter Visit Diagnoses Not on filedocumented in this encounter Care Teams Paradichlorobenzene Tender Relationship Specialty Start Date End Date Hermes Tabor MD [address] [place] [address] PCP - General Internal Medicine 08/14/20 Grace Siegel MD [address] [place] [address] Specialist Lung Cancer Training Officer 11/23/21 James Ramos PA-C [address] [phone] Specialist Thoracic Surgery 07/02/22 Lazara Christian PA-C [address] [phone] Thoracic Surgery 01/19/24 documented as of this encounter
--- OUTSIDE RECORDS SUMMARY | 2024-09-18 14:39 | XMS_ITS | Encounter Summary ---
Author Organization [facility] Address [address] [place] [address] Care Team Providers Care Contact Lens Technician Name Role Phone Cabrera Pride MD Primary Care Provider Unava kristy Tabor Ch MD Primary Care Provider [phone] Grace Siegel MD Unavailable James Ramos PAGentryC Unavailable [phone] Lazara Christian PA-C Unavailable [phone] Reason for Visit * Reason Onset Date Comments Special Procedure 02/05/2020 Encounter Details Date Type Department Care Team Description 02/05/2020 Telephone Gastroenterology - [address] [place] [address] Ian Rivera MD [address] [place] [address] Special Procedure Social History Tobacco Use Types Packs/Day Years [...] have Coronavirus / COVID-19? No / Unsure 02/01/2020 2:19 PM EDT documented as of this encounter Miscellaneous Notes * Telephone Encounter - Olivia Colmenares - 02/05/2020 3:50 PM EDT Called patient to schedule egd and colonoscopy per Dr Rivera's radiology note. Voicemail is full documented in this encounter Plan of Treatment Not on file documented as of this encounter Visit Diagnoses Not on filedocumented in this encounter Care Teams Contact Lens Technician Relationship Specialty Start Date End Date Cabrera Pride MD PCP - General Internal Medicine 10/06/17 08/13/20 Hermes Tabor MD [address] [place] [address] PCP - General Internal Medicine 08/14/20 Grace Siegel MD [address] [place] [address] Specialist Lung Cancer Weaver Hand 11/23/21 James Ramos PA-C [address] [phone] Specialist Thoracic Surgery 07/02/22 Lazara Christian PA-C [address] [phone] Thoracic Surgery 01/19/24 documented as of this encounter
--- OUTSIDE RECORDS SUMMARY | 2024-09-18 14:39 | XMS_ITS | Encounter Summary ---
Author Organization [facility] Address [address] [place] [address] Care Team Providers Care Custodial Engineer Name Role Phone Hermes Tabor MD Primary Care Provider [phone] Grace Siegel MD Unavailable James Ramos PA-C Unavailable [phone] Lazara Christian PA-C Unavailable [phone] Reason for Visit * Reason Onset Date Comments [facility] Call 11/23/2021 [facility] Encounter Details Date Type Department Care Team Description 11/23/2021 Telephone Adult Medicine - [place] [address] [place] [address] Hermes Tabor MD [address] [place] [address] [facility]NA Call ([facility] ) Social History Tobacco Use Types Packs/Day Years [...] encounter Miscellaneous Notes * Telephone Encounter - Jessica Morataya L.P.N. - 11/23/2021 11:14 AM EDT fyi homecare services started 11-21-21 * Telephone Encounter - Ernestina Zamudio - 11/23/2021 11:08 AM EDT [facility]NA CALL Which [facility]NA office is calling? Marta al Full name of caller: osvaldo The caller is A nurse Is the caller at the patients home?: NO Reason for call: FYI to provider Pt start of care for nursing services started on 11/21. No need for call back fyi Does caller need an urgent call back? NO Was CONTACT Telephone # obtained above?: YES [phone] Fax #: documented in this encounter Plan of Treatment Not on file documented as of this encounter Visit Diagnoses Not on filedocumented in this encounter Care Teams Custodial Engineer Relationship Specialty Start Date End Date Hermes Tabor MD [address] [place] [address] PCP - General Internal Medicine 08/14/20 Grace Siegel MD [address] [place] [address] Specialist Lung Cancer Dry Janitor 11/23/21 James Ramos PA-C [address] [phone] Specialist Thoracic Surgery 07/02/22 Lazara Christian PA-C [address] [phone] Thoracic Surgery 01/19/24 documented as of this encounter
--- OUTSIDE RECORDS SUMMARY | 2024-09-18 14:39 | XMS_ITS | Encounter Summary ---
Author Organization [facility] Address [address] [place] [address] Care Team Providers Care Legal Job Titles Name Role Phone Hermes Tabor MD Primary Care Provider [phone] Grace Siegel MD Unavailable James Ramos PA-C Unavailable [phone] Lazara Christian PA-C Unavailable [phone] Encounter Details Date Type Department Care Team Description 07/14/2022 Pt. Non Urgent Medic al Question Adult Medicine - [place] [address] [place] [address] Hermes Tabor, [address] [place] [address] Social History Tobacco Use Types Packs/Day Years [...] suspected to have Coronavirus/COVID-19? No / Unsure 07/02/2022 1:46 PM EST documented as of this encounter Miscellaneous Notes * Telephone Encounter - Maria L Simon M.A. - 07/14/2022 10:33 AM EDTFrom: Julia Gaines To: Jordan Tabor Sent: 07/14/2022 10:29 AM EDT Subject: Congestion and Extreme Weakness I have been very sick for 4 days with wheezing, hacking cough, chest congestion, slight fever and extreme weakness. What should I do? documented in this encounter Plan of Treatment Not on file documented as of this encounter Visit Diagnoses Not on filedocumented in this encounter Care Teams Legal Job Titles Relationship Specialty Start Date End Date Hermes Tabor MD [address] [place] [address] PCP - General Internal Medicine 08/14/20 Grace Siegel MD [address] [place] [address] Specialist Lung Cancer Nuclear Technologist 11/23/21 James Ramos PA-C [address] [phone] Specialist Thoracic Surgery 07/02/22 Lazara Christian PA-C [address] [phone] Thoracic Surgery 01/19/24 documented as of this encounter
--- OUTSIDE RECORDS SUMMARY | 2024-09-18 14:39 | XMS_ITS | Encounter Summary ---
Author Organization [facility] Address [address] [place] [address] Care Team Providers Care Automatic Pilot Mechanic Name Role Phone Hermes Tabor MD Primary Care Provider [phone] Grace Siegel MD Unavailable James Ramos PA-C Unavailable [phone] Lazara Christian PA-C Unavailable [phone] Encounter Details Date Type Department Care Team Description 11/20/2021 Orders Only Medical Records [address] [place] [address] James Ramos PA-C [address] [phone] Social History Tobacco Use Types [...] Associated Diagnosis Comments OUTSIDE PLAIN FILM Routine 11/20/2021 documented in this encounter Results * OUTSIDE PLAIN FILM (11/20/2021) James Ramos PA-C RADIOLOGY documented in this encounter Visit Diagnoses Not on filedocumented in this encounter Care Teams Automatic Pilot Mechanic Relationship Specialty Start Date End Date Hermes Tabor MD [address] [place] [address] PCP - General Internal Medicine 08/14/20 Grace Siegel MD [address] [place] [address] Specialist Lung Cancer Landfill Grader 11/23/21 James Ramos PA-C [address] [phone] Specialist Thoracic Surgery 07/02/22 Lazara Christian PA-C [address] [phone] Thoracic Surgery 01/19/24 documented as of this encounter
--- OUTSIDE RECORDS SUMMARY | 2024-09-18 14:39 | XMS_ITS | Encounter Summary ---
Author Organization [facility] Address [address] [place] [address] Care Team Providers Care Chicken Picker Name Role Phone Hermes Tabor MD Primary Care Provider Grace Siegel MD Unavailable James Ramos PA-C Unavailable [phone] Lazara Christian PA-C Unavailable [phone] Encounter Details Date Type Department Care Team Description 10/16/2021 Hospital Medical Records [address] [place] [address] Grace Siegel MD [address] [address] Social History Tobacco Use Types Packs/Day Years Used Date Smoking Tobacco: Former Cigarettes 0.8 52 Q uit: 09/30/2021 Smokeless Tobacco: Never Comments:Cheats now and then with cigarettes 01/19/24 [...] on filedocumented in this encounter Care Teams Chicken Picker Relationship Specialty Start Date End Date Hermes Tabor MD [address] [place] [address] PCP - General Internal Medicine 08/14/20 Grace Siegel MD [address] [place] [address] Specialist Lung Cancer Information Security Analyst 11/23/21 James Ramos PA-C [address] [place] [phone] Specialist Thoracic Surgery 07/02/22 Lazara Christian PA-C [address] [phone] Thoracic Surgery 01/19/24 documented as of this encounter
--- OUTSIDE RECORDS SUMMARY | 2024-09-18 14:39 | XMS_ITS | Encounter Summary ---
Author Organization [facility] Address [address] [place] [address] Care Team Providers Care Educational Technology Specialist Name Role Phone Hermes Tabor MD Primary Care Provider + [phone] Grace Siegel MD Unavailable James Ramos PA-C Unavailable [phone] Lazara Christian PA-C Unavailable [phone] Encounter Details Date Type Department Care Team Description 11/17/2021 Hospital Medical Records [address] [place] [address] Grace Siegel MD [address] [address] Social History Tobacco Use Types Packs/Day Years [...] on filedocumented in this encounter Care Teams Educational Technology Specialist Relationship Specialty Start Date End Date Hermes Tabor MD [address] [place] [address] PCP - General Internal Medicine 08/14/20 Grace Siegel MD [address] [place] [address] Specialist Lung Cancer Grinder Set Up Operator Surface 11/23/21 James Ramos PA-C [address] [place] [phone] Specialist Thoracic Surgery 07/02/22 Lazara Christian PA-C [address] [phone] Thoracic Surgery 01/19/24 documented as of this encounter
--- OUTSIDE RECORDS SUMMARY | 2024-09-18 14:39 | XMS_ITS | Encounter Summary ---
Author Organization [facility] Address [address] [place] [address] Care Team Providers Care Nut Former Name Role Phone Hermes Tabor MD Primary Care Provider + [phone] Grace Siegel MD Unavailable James Ramos PA-C Unavailable [phone] Lazara Christian PA-C Unavailable [phone] Reason for Visit * Reason Comments E-prescribe Rx Request Encounter Details Date Type Department Care Team Description 09/17/2023 Refill Adult Medicine - [address] [address] Nataly Mead PA-C [address] [place] [address] E-prescribe Rx Request Social History Tobacco Use [...] encounter Miscellaneous Notes * Telephone Encounter - Mallorie Rodriguez - 09/19/2023 1:34 PM EDT REFILL LAST APPOINTMENT: 08/08/23 LAST TIME WITH PCP: s NEXT APPOINTMENT : 02/14/24 documented in this encounter Plan of Treatment Not on file documented as of this encounter Visit Diagnoses Diagnosis Hypertension, unspecified type documented in this encounter Care Teams Nut Former Relationship Specialty Start Date End Date Hermes Tabor MD [address] [place] [address] PCP - General Internal Medicine 08/14/20 Grace Siegel MD [address] [place] [address] Specialist Lung Cancer Pss Delivery Professional 11/23/21 James Ramos PA-C [address] [phone] Specialist Thoracic Surgery 07/02/22 Lazara Christian PA-C [address] [phone] Thoracic Surgery 01/19/24 documented as of this encounter
--- OUTSIDE RECORDS SUMMARY | 2024-09-18 14:40 | XMS_ITS | Encounter Summary ---
Author Organization [facility] Address [address] [place] [address] Care Team Providers Care Storekeeper Helper Name Role Phone Hermes Tabor MD Primary Care Provider [phone] Grace Siegel MD Unavailable James Ramos PA-C Unavailable [phone] Lazara Christian PA-C Unavailable [phone] Encounter Details Date Type Department Care Team Description 10/05/2022 Pt. Non Urgent Medic al Question Adult Medicine - [place] [address] [place] [address] Hermes Tabor, [address] [place] [address] Social History Tobacco Use Types Packs/Day Years [...] encounter Miscellaneous Notes * Telephone Encounter - Cece Martinez L.P.N. - 10/05/2022 11:39 AM EDT From: Julia Gaines To: Jordan Tabor Sent: 10/05/2022 10:55 AM EDT Subject: Nutrition Is a profile mill operator tape control available at [place]? I want to follow a healthy diet that will help with my energy? documented in this encounter Plan of Treatment Not on file documented as of this encounter Visit Diagnoses Not on filedocumented in this encounter Care Teams Storekeeper Helper Relationship Specialty Start Date End Date Hermes Tabor MD [address] [place] [address] PCP - General Internal Medicine 08/14/20 Grace Siegel MD [address] [place] [address] Specialist Lung Cancer Track Laying Equipment Operator 11/23/21 James Ramos PA-C [address] [phone] Specialist Thoracic Surgery 07/02/22 Lazara Christian PA-C [address] [phone] Thoracic Surgery 01/19/24 documented as of this encounter
--- OUTSIDE RECORDS SUMMARY | 2024-09-18 14:40 | XMS_ITS | Clinical Summary ---
Author Organization [facility] [address] [facility] [address] Address [address] [place] [address] Phone Care Team Providers Care Undercutter Operator Name Role Phone Maria L Tabor MD Primary Care Prov ider Allergies No known active allergies Medications atorvastatin (LIPITOR) 80 mg tablet TAKE 1 TABLET BY MOUTH EVERY DAY IN THE EVENING 90 tablet 1 024 Active ARIPiprazole (ABILIFY) 2 mg tablet Take 1 tablet (2 mg total) by mouth 1 (one) time each day. Acti ve buPROPion XL (WELLBUTRIN XL) 300 mg 24 hr tablet Take 1 tablet (300 mg total) by mouth 1 (one) time each day in the morning. 024 Active escitalopram (LEXAPRO) 20 mg tablet Take 1 tablet (20 mg total) by mouth 1 (one) time each day. Acti ve folic acid (FOLVITE) 1 mg tablet Take 1 tablet (1,000 mcg total) by mouth 1 (one) time each day. Active gabapentin (NEURONTIN) 300 mg capsule Take 300 mg by mouth 4 times daily. Managed by Julia Parikh RN CS [facility] Psychopharmacology Active levothyroxine (SYNTHROID, LEVOTHROID) 88 mcg tablet Take 1 tablet (88 mcg total) by mouth 1 (one) time each day. 024 Active loperamide (IMODIUM) 2 mg capsule Take 1 Capsule by mouth 4 times daily as needed for Diarrhea. 024 Active LORazepam (ATIVAN) 0.5 mg tablet Take 1 tablet (0.5 mg total) by mouth 2 (two) times a day if needed. 023 Active traZODone (DESYREL) 100 mg tablet Take 1 tablet (100 mg total) by mouth at bedtime. Active turmeric root extract 500 mg tablet Take by mouth. Activ e valsartan-hyd roCHLOROthiaz jaret (DIOVAN-HCT) 320-25 mg per tablet TAKE 1 TABLET BY MOUTH EVERY DAY 90 tablet 1 025 Active valsartan-hyd roCHLOROthiaz jaret (DIOVAN-HCT) 320-25 mg per tablet TAKE 1 TABLET BY MOUTH EVERY DAY 90 tablet 1 024 2024 Discontinued Active Problems Problem Noted Date Diagnosed Date Chronic cough 08/14/2024 Multiple pulmonary nodules 01/18/2024 Malignant neoplasm of upper lobe of right lung ([facility] V24, [facility] V28) 12/16/2021 Overview (04/12/2024): Adenocarcinoma status post [...] shoulder. Hypertension 04/11/2018 Hypothyroidism 04/11/2018 Polymyalgia rheumatica ([facility] V24) 04/11/2018 Overview (04/12/2024): Bothered shoulders mostly Trochanteric bursitis of left hip 04/11/2018 Encounters Date Type Department Care Team Description 09/13/2024 Telephone Urogynecology - [place] [address] [place] [phone] Marli Hart MD Med Refill 08/14/2024 1:30 PM EDT - 08/14/2024 11:59 PM EDT Hospital Encounter Xray - [place] [address] [place] [address] Neck pain on left side Discharge Disposition: Home or Self Care 08/14/2024 1:15 PM EDT Office Visit Adult Medicine - [place] [address] [place] [phone] Maria L Schultz MD Neck pain on left side (Primary Dx); Hypothyroidism, unspecified type; Polymyalgia rheumatica ([facility] V24); Chronic cough; Primary hypertension 07/19/2024 Telephone Urogynecology - [place] [address] [place] [address] Marli Hart MD Med Refill from Last 3 Months Immunizations Name Administration [...] eyes OTHER SURGICAL HISTORY 11/17/2021 Right PROCEDURE: GA THORACOSCOPY W/LOBECTOMY SINGLE LOBE; COMMENT: RUL Medical History Medical History Date Comments Hypertension DX:Hypertension Mixed hyperlipidemia DX:Mixed hy perlipidemia Hypothyroidism DX:Hypothyroidis m Hiatal hernia DX:Hiatal hernia Family History Medical History Relation Name Comments Throat cancer Brother CAD s/p CABG i ssues start age late 50s, DM II Coronary artery disease Father [place] a ge 61 , DM II Coronary [...] not to disclose 2024 9:00 AM EDT Obstetrics History Last Filed Vital Signs Vital [...] (Low Dose CT) 09/09/2022 09/09/2021 COVID-19 Vaccine (4 - 2024-25 season) 2024 02/22/2021, 08/16/2020, 07/25/2020 Medicare Annual [...] or secondary to muscle spasm. POS - [id number] -------- FINAL REPORT -------- Dictated By: Aleisha Abreu Dictated Date: 08/15/2024 06:43 ET Assigned Physician: Aleisha Abreu Reviewed and Electronically Signed By: Aleisha Abreu Signed Date: 08/15/2024 06:57 ET Workstation ID: [id number] Transcribed By: Self Edit Transcribed Date: 08/15/2024 [...] or secondary to muscle spasm. POS - [id number] -------- FINAL REPORT -------- Dictated By: Aleisha Abreu Dictated Date: 08/15/2024 06:43 ET Assigned Physician: Aleisha Abreu Reviewed and Electronically Signed By: Aleisha Abreu Signed Date: 08/15/2024 06:57 ET Workstation ID: [id number] Transcribed By: Self Edit Transcribed Date: 08/15/2024 06:43 ET Maria L Tabor MD IMG XR PROCEDURES Final Result * Annual BMP Blood Test (06/30/2023) Pathologist [facility] Annual BMP Blood Test abstracted Historical Provider HEALTH MAINTENANCE Final Result * Lipid panel (06/30/2023) [facility] LDL/HDL Ratio 3 0 - 4 Triglycerides 108 0 - 150 mg/dL Cholesterol 134 0 - 200 mg/dL HDL 52 >=40 mg/dL LDL Cholesterol 61 0 - 100 mg/dL Blood Venous blood specimen / Unknown us Historical Provider LAB BLOOD ORDERABLES Shobha greenberg Result * DXA BONE DENSITY STUDY 1+ [...] classified as having normal bone density. [facility] Department of Internal Medicine recommends using National [...] beclassified as having normal bone density. [facility] Department of Internal Medicine recommendsusing National Osteoporosis [...] or over-estimation of fracture risk by FRAX. Nataly MCGRAW IMG DXA PROCEDURES Final R esult * CT LUNG SCREENING LOW DOSE (09/09/2021 11:03 AM EDT) Anatomical Region Laterality Modality Computed Tomogra phy 09/08/2021 3:34 PM EDT Narrative 09/09/2021 11:03 AM EDT [facility] Diagnostic Imaging Department [address] [place] [id number] Patient: ??RZASA,JULIA ?/Age/Sex: 1950 - Unit#: ??[id number] ? Location/Status: ??SPDICATLS/REG CLI ? Mnem[facility] Ordering Physician: ??GRACE ALBARRAN MD CT Lung Screening Low Dose - 09/08/21 - 0668 ADDENDUM Lung RADS category 4A, probably suspicious [...] in 3-6 months recommended to document stability. [id number] G9637, G9557, G9550 Dictating Physician: ??TITO PATEL MD Electronically Signed by: ??TITO PATEL MD Dic Date/Time: ??09/08/21 1849 Sign date/Time: ??09/08/21 1900 Procedure Note Tito Patel MD - 04/21/2022 [facility] Diagnostic Imaging Department [address] [place] [address] Patient: JULIA YAO /Age/Sex: 1950 - 71 - F Unit#: [id number] Location/Status: SPDICATLS/REG CLI Mnemonic/Ordering Site: [facility] Ordering Physician: GRACE ALBARRAN MD CT [...] CT in 3-6 months recommended to documentstability. [id number] G9637, G9557, G9551 Dictating Physician: TITO PATEL MD Electronically Signed by: TITO PATEL MD Dic Date/Time: 09/08/21 1849 Sign date/Time: 09/08/21 1900 Grace Albarran MD IMG CT PROCEDURES Final Result * Colonoscopy (03/06/2020) [facility] Colonoscopy no interpretation , abstracted Anatomical Region Laterality Modality Other Historical Provider HEALTH MAINTENANCE Final Result from Last 3 Months or Most Recently Relevant to Health Maintenance Insurance MEDICARE Advance Directives Documents on File Type Date Recorded Patient Ice Cream Van Vendor Expl anation Health Care Decision (hx) 11/19/2021 AD BLOOM DIRECTIVE Health Care Decision (hx) 11/19/2021 AD BLOOM DIRECTIVE Health Care Decision (hx) 11/19/2021 AD BLOOM DIRECTIVE Health Care Decision (hx) 11/19/2021 AD BLOOM DIRECTIVE Health Care Decision (hx) 11/19/2021 AD BLOOM DIRECTIVE Health Care Decision (hx) 11/19/2021 AD BLOOM DIRECTIVE Health Care Decision (hx) 11/19/2021 AD BLOOM DIRECTIVE Care Teams Undercutter Operator Relationship Specialty Start Date End Date Maria L Tabor MD [address] [place] [phone] PCP - General Internal Medicine 08/14/20
== END 2024-09-18 14:31 | disposition home or self-care (01) ==
LOC: HO.HOP 13:29
PROVIDERS: PCP Internal Medicine; Visit Provider Clinical Nurse Specialist Psychiatric/Mental Health
DX: F43.21 Adjustment disorder with depressed mood (principal); F41.1 Generalized anxiety disorder; F33.41 Major depressive disorder, recurrent, in partial remission
CPT/HCPCS: 99214

== ENCOUNTER → 2024-09-18 13:29 | Outpatient (BNVA) | payer MEDICARE, OTHER, SELFPAY | PROVIDERS: PCP Internal Medicine; Visit Provider Clinical Nurse Specialist Psychiatric/Mental Health | DX: F43.21 Adjustment disorder with depressed mood (principal); F41.1 Generalized anxiety disorder; F33.41 Major depressive disorder, recurrent, in partial remission | CPT/HCPCS: 99212 ==

== ENCOUNTER 2024-11-13 14:08 | Outpatient (AMB) | payer MEDICARE, OTHER, SELFPAY ==
--- OUTSIDE RECORDS SUMMARY | 2022-07-14 16:04 | XMS_ITS | Encounter Summary ---
Author Organization [facility] Address [address] [place] [address] Care Team Providers Care Light Truck Driver Name Role Phone Unknown Primary Care Provider [phone] Encounter Details Date Type Department Care Team (Late st Contact Info) Description 07/14/2022 4:04 PM EDT Hospital Encounter [facility] Ur[facility] Care [address] [place] [address] Mack Pleitez MD [address] [place] [phone] Social History Tobacco Use Types Packs/Day Years [...] on filedocumented in this encounter Care Teams Light Truck Driver Relationship Specialty Start Date End Date Unknown Unknow Provider Address PCP - General 05/02/22 documented as of this encounter
--- NOTE | 2024-11-13 14:25 | MHC.OFFVISPS ---
Intake Intake Visit Reasons: Depression Dental Laboratory Manager Required: No Allergies No Known Allergies Allergy (Verified 07/15/23 15:16) Medication List - Last Reconciled 11/13/24 by Julia Parikh APRN aripiprazole 2 mg PO DAILY atorvastatin 80 mg PO QPM bupropion HCl XL 300 mg PO DAILY escitalopram oxalate 20 mg PO DAILY gabapentin 300 mg PO TID levothyroxine 88 mcg PO DAILY lorazepam 0.5 mg PO BID PRN trazodone watch for over-sedation; take 1- 2 tablets daily at BEDTIME as needed for sleep valsartan-hydrochlorothiazide 320-25 mg 1 tab PO DAILY HPI- Psychiatric Chief Complaint: Depression HPI Narrative: pt here for follow up re: depression and anxiety pt reports taking meds consistently no side effects pt reports having a 4 day period last month of feeling very depressed and angry she didn't go to [employer] study group or to sikh; she isolated. Her daughter Patsy would have turned 40 tomorrow This is a hard time of year for pt with mother's day and daughter's bday pts sister getting better and not needing as much care from pt which may have triggered a let down in energy also Pt feeling better now and reconnected with supports PHQ9=5 and GAD7=5 pt looking forward to going to [place] tomorrow with her and granddaughter Past Psychiatric History: 1-[facility] age 22 depression 1- PHP in 2019 referred by [facility], no SI x 2 weeks, 4 months ago depression increased severely, new onset of severe anxiety, started [facility] php and completed 20 days before she really felt much better; depression was very deep, Dr. Langley made a med change there, she reports she had passive SI for weeks before going, no active SI; depression symptoms included not getting out of bed, not eating, no interest, low energy, low motivation; severe anxiety with anxiety attacks Pt says she has always had depression her whole life; had a severe bout of post depression at age 22 and was hospitalized at [facility]; ,no hospitalizations after that; lost her first child 21 yrs ago when her daughter in a MVA; She lost another daughter 2 yrs ago from an accidental overdose on heroin and fentanyl; her daughter Patsy of an opiate overdose on mother's day in 2013; her daughter had been doing well and in recovery and her was a shock; her was having open heart surgery at the same time and her older daughter was going through a divorce; pt reports she felt numb and probably didn't grieve; she lost 18 lbs in 3 months, 25 years on Prozac which worked well up until a few months ago; symptoms when very depression - not getting out of bed, no lunch with friends Subjective Subjective Subjective Medication Compliance: Yes Side effects from medications: No Review of Systems Medical Review of Systems: unchanged Mental Status Exam Mental Status Exam Patient Appearance: Well Grooomed and Appropriate Patient Orientation: Person, Place, Time and Situation Level of Consciousness: Awake and Appropriate Patient Behavior: Appropriate and Cooperative Mood Description: Appropriate, Anxious and Sad Affect Description: Appropriate, Cheerful, Anxious and Sad Patient Cognition Impaired: No Ability to Follow Directions: Good Speech Pattern: Clear and Appropriate Memory Description: Intact Hallucinations: None Delusions: Not Present Thought Process: Intact and Goal Oriented Thought Content: positive for Intact and positive for Goal Oriented Judgement: Good Assessment and Plan Assessment & Plan (1) Major depression, recurrent: Status: Acute Qualifiers: Active/Remission status: in partial remission Qualified Code(s): F33.41 - Major depressive disorder, recurrent, in partial remission Code(s): F33.9 - Major depressive disorder, recurrent, unspecified (2) STEVE (generalized anxiety disorder): Status: Acute Code(s): F41.1 - Generalized anxiety disorder (3) Complicated grief: Status: Acute Code(s): F43.21 - Adjustment disorder with depressed mood Plan continue medications return in 4 week Medications: Refilled aripiprazole 2 mg PO DAILY 90 tabs 1RF bupropion HCl XL 300 mg PO DAILY 90 tabs 1RF gabapentin 300 mg PO TID 90 caps 3RF lorazepam 0.5 mg PO BID PRN 60 tabs 2RF anxiety escitalopram oxalate 20 mg PO DAILY 90 tabs 1RF trazodone watch for over-sedation; take 1- 2 tablets daily at BEDTIME as needed for sleep 180 tabs 1RF sleep Counseling and coordination of Care Pt. Self Management counseling: Maintenance-social rhythm, Mod caffeine/ETOH intake, Sleep hygiene, Behavior activation, General coping skills and Problem solving Medication management counseling: Effectiveness, Side effects, Dosing range, Duration, Drug interaction and Adherence Diagnosis and Prognosis Counseling: Accuracy of diagnosis, Prognosis over time, Impact of diagnosis on life functions, Impact of family relationship, Problematic behaviors secondary to diagnosis and Adequacy of current interventions Details: I spent 40 minutes reviewing the record, seeing the patient and documenting in the medical record. Counseling provided to the patient/caregiver as outlined below. Addressed patient/caregiver concerns regarding current medication regime including effective adherence. Addressed patient/caregiver concerns regarding diagnosis and prognosis including accuracy of diagnosis, prognosis over time, impact of diagnosis. Addressed patient/caregiver concerns regarding impact of recent stressors. [facility] Medical History (Updated 05/15/24 @ 15:28 by Julia Parikh APRN) Lung cancer Social History: lives with ; has one adult daughter and two grandchildren. Lost one daughter in 1998 from MVA. lost another daughter from accidental overdose on opiates in 2017. Substance History: none Trauma History: Lost one daughter Clover in 1998 from MVA. lost another daughter Patsy from accidental overdose on opiates in 2017. Coding Level of Care Code Est Pt Level 4 (59135) Diagnoses Recurrent major depressive disorder, in partial remission F33.41 Active/Remission status: in partial remission STEVE (generalized anxiety disorder) F41.1 Complicated grief F43.21
--- OUTSIDE RECORDS SUMMARY | 2024-11-13 15:26 | XMS_ITS ---
Author Name [facility] Organization Unknown History of Medication Use Medication Directions Dispensed Refills Start Date End Date Stat solifenacin (VESICARE) 5 mg tablet Take 1 tablet (5 mg total) by mouth 1 (one) time each day. Swallow tablet whole; do not crush, chew, or split. 06/01/2024 activ e fluticasone propion-salmeteroL (Advair HFA) 230-21 mcg/actuation inhaler INHALE 2 PUFFS INTO THE LUNGS 2 TIMES DAILY. RINSE MOUTH WITH WATER AND EXPECTORATE AFTER EACH DOSE 04/24/2024 active atorvastatin (LIPITOR) 80 mg tablet TAKE 1 TABLET BY MOUTH EVERY DAY IN THE EVENING 04/04/2024 active levothyroxine (SYNTHROID, LEVOTHROID) 88 mcg tablet Take 1 tablet (88 mcg total) by mouth 1 (one) time each day. 03/01/2024 active atorvastatin (LIPITOR) 80 mg tablet Take 1 Tablet by mouth every evening. 08/31/2023 active valsartan-hydroCHL OROthiazide (DIOVAN-HCT) 320-25 mg per tablet TAKE 1 TABLET BY MOUTH EVERY DAY 08/31/2023 active loperamide (IMODIUM) 2 mg capsule Take 1 Capsule by mouth 4 times daily as needed for Diarrhea. 08/15/2023 active buPROPion XL (WELLBUTRIN XL) 300 mg 24 hr tablet Take 1 tablet (300 mg total) by mouth 1 (one) time each day in the morning. 05/31/2023 active LORazepam (ATIVAN) 0.5 mg tablet Take 1 tablet (0.5 mg total) by mouth 2 (two) times a day if needed. 01/17/2023 activ e albuterol (PROVENTIL HFA; VENTOLIN HFA) 108 (90 Base) MCG/ACT inhaler Inhale 2 puffs 4 times daily (every 6 hours) as needed for wheezing. 07/14/2022 07/23/19 2 3 active predniSONE (DELTASONE) 50 MG tablet Take 1 tablet (50 mg total) by mouth daily. With food. 07/14/2022 3 active ARIPiprazole (ABILIFY) 2 mg tablet Take 1 tablet (2 mg total) by mouth 1 (one) time each day. active escitalopram (LEXAPRO) 20 mg tablet Take 1 tablet (20 mg total) by mouth 1 (one) time each day. active folic acid (FOLVITE) 1 mg tablet Take 1 tablet (1,000 mcg total) by mouth 1 (one) time each day. active gabapentin (NEURONTIN) 300 mg capsule Take 300 mg by mouth 4 times daily. Managed by Julia Parikh RN CS [facility] Psychopharmacology active traZODone (DESYREL) 100 mg tablet Take 1 tablet (100 mg total) by mouth at bedtime. active turmeric root extract 500 mg tablet Take by mouth. active Problems Problem Status Onset Date Problem Type Date of Resolution Source HLD (hyperlipidemia) active 2018-12-31 1 ProblemAct [facility] Multiple pulmonary nodules active 2024-01-01 8 ProblemAct [facility] Hypertension active 2018-04-01 1 ProblemAct [facility] Leukocytosis active 7 ProblemAct [facility] Gastroesophageal reflux disease without esophagitis active 9 ProblemAct [facility] Hypothyroidism active 2018-04-01 1 ProblemAct [facility] Polymyalgia rheumatica ([facility] V24) active 2018-04-01 1 ProblemAct [facility] N Hiatal hernia active 9 ProblemAct [facility] Trochanteric bursitis of left hip active 2018-04-01 1 ProblemAct [facility] Prediabetes active 7 ProblemAct [facility] Malignant neoplasm of upper lobe of right lung ([facility] V24, [facility] V28) active 2021-11-30 7 ProblemAct [facility] Chronic cough active 2024-07-31 5 ProblemAct [facility] Change in bowel function active 2019-12 6 ProblemAct [facility] Pure hypercholesterolemia active 2021-08-30 6 ProblemAct [facility] Depression active 2018-04-01 1 ProblemAct [facility] Arthritis active 2018-04-01 1 ProblemAct [facility] SSBE (short-segment Goldberg's esophagus) active 9 ProblemAct [facility] Diverticulosis active 9 ProblemAct [facility] N Encounter for screening laboratory testing for COVID-19 virus active EncounterDiagnosisAct CC T Bronchitis active EncounterDiagnosisAct [facility] Immunizations Vaccine Date Source Lot Number Status Pneumococcal polysaccharide 23 valent (Pneumovax 23) 2yo and older 12/16/2021 [facility]ONISFRAN [id number] com pleted Tdap Tetanus diptheria acell ular pertussis (Boostrix; Adacel) 7yo and older 07/09/2021 [facility] [id number] completed Influenza trivalent, 0.5mL ( Fluad) 65yo and older 01/10/2019 [facility] [id number] completed Pneumococcal conjugate 13 va lent (Prevnar 13, PCV13) 2mo and older 02/22/2018 [facility] [id number] complet ed Zoster recombinant (Shingrix ) 19yo and older 01/09/2018 [facility]_AMIRASFR[facility] [id number] completed Zoster recombinant (Shingrix ) 19yo and older 09/19/2017 [facility] [id number] completed Encounters Encounter Type Encounter Reason Primary Diagnosis Location Date Ambulatory [facility] 07/14/2022 Ambulatory Bronchitis, not specified as acute or chronic [facility] 07/14/2022 Care Team Organization Name Specialty Phone Email Start Date End Da te [facility] 07/14/2022 07/14/2022 [facility] 07/14/2022
--- OUTSIDE RECORDS SUMMARY | 2024-11-13 15:26 | XMS_ITS | Clinical Summary ---
Author Organization [facility] [address] [facility] lding Address [address] [place] [address] Phone Care Team Providers Care Baker Apprentice Name Role Phone Maria L Tabor MD Primary Care Prov ider Allergies No known active allergies Medications ARIPiprazole (ABILIFY) 2 mg tablet Take 1 [...] Julia Parikh RN CS PC Psychopharmacology Active loperamide (IMODIUM) 2 mg capsule Take [...] BY MOUTH EVERY DAY 90 tablet 1 09/15/19 Active levothyroxine (SYNTHROID, LEVOTHROID) 88 mcg tabletIndicati ons:Hypothyroi dism, unspecified TAKE 1 TABLET BY MOUTH EVERY DAY 90 tablet 1 09/20/19 25 Active atorvastatin (LIPITOR) 80 mg tablet TAKE 1 TABLET BY MOUTH EVERY DAY IN THE EVENING 90 tablet 1 09/21/19 25 Active Active Problems Problem Noted Date Diagnosed Date Chronic cough 08/14/2024 Multiple pulmonary nodules 01/18/2024 Malignant neoplasm of upper lobe of right lung ([facility] V24, [facility] V28) 12/16/2021 Overview (04/12/2024): Adenocarcinoma [...] shoulder. Hypertension 04/11/2018 Hypothyroidism 04/11/2018 Polymyalgia rheumatica ([facility] V24) 04/11/2018 Overview (04/12/2024): Bothered shoulders mostly Trochanteric bursitis of left hip 04/11/2018 Encounters Date Type Department Care Team Description 09/13/2024 Telephone Urogynecology - [address] [place] [address] Marli Hart MD Med Refill 08/14/2024 1:30 PM EDT - 08/14/2024 11:59 PM EDT Hospital Encounter Xray - [place] [address] [place] [address] Neck pain on left side Discharge Disposition: Home or Self Care 08/14/2024 1:15 PM EDT Office Visit Adult Medicine - [place] [address] [place] [address] Maria L Schultz MD Neck pain on left side (Primary Dx); Hypothyroidism, unspecified type; Polymyalgia rheumatica (CMS/HCC V24); Chronic cough; Primary hypertension from Last 3 Months Immunizations Name Administration [...] eyes OTHER SURGICAL HISTORY 11/17/2021 Right PROCEDURE: DC THORACOSCOPY W/LOBECTOMY SINGLE LOBE; COMMENT: RUL Medical History Medical History Date Comments Hypertension DX:Hypertension Mixed hyperlipidemia DX:Mixed hy perlipidemia Hypothyroidism DX:Hypothyroidis m Hiatal hernia DX:Hiatal hernia Family History Medical History Relation Name Comments Throat cancer Brother CAD s/p CABG i ssues start age late 50s, DM II Coronary artery disease Father [place] a ge 61 , DM II Coronary [...] 78 08/14/2024 1:04 PM EDT Temperature 36.6 C (97.9 F) 08/14/2024 1:04 PM EDT Respiratory Rate - - Oxygen Saturation - [...] BMP Blood Test 06/29/2024 06/30/2023 Influenza Vaccine (#1) 2024 , 01/20/2020, 01/10/2019, Additional history exists Cholesterol Screening [...] where bilateral neural foraminal encroachment is present. Straightening of the normal cervical lordosis can be positional or secondary to muscle spasm. POS - [id number] -------- FINAL REPORT -------- Dictated By: Aleisha Abreu Dictated Date: 08/15/2024 06:43 ET Assigned Physician: Aleisha Abreu Reviewed and Electronically Signed By: Aleisha Abreu Signed Date: 08/15/2024 06:57 ET Workstation ID: [id number] Transcribed By: Self Edit Transcribed Date: 08/15/2024 06:43 ET Narrative 08/15/2024 6:57 AM EDT EXAM: Cervical spine x-ray HISTORY: Neck pain on left side. No known trauma. COMPARISON: None FINDINGS: 4 views performed. Cervical spine is visualized through C7 on the lateral projection. No compression deformities. Straightening of the normal cervical lordosis. Moderate to severe disc space narrowing at C6-7 and mild at C5-6. Fairly diffuse bulky anterior endplate osteophytes. Uncovertebral spurring at C5-6 and C6-7. On the right, moderate neural foraminal encroachment at C5-6 and C6-7. On the left, mild neural foraminal encroachment at C5-6 and C6-7. Atlantoaxial distance is within normal limits. No abnormal thickening of the prevertebral soft tissues. Suture material in the right upper lung. Procedure [...] or secondary to muscle spasm. POS - [id number] -------- FINAL REPORT -------- Dictated By: Aleisha Abreu Dictated Date: 08/15/2024 06:43 ET Assigned Physician: Aleisha Abreu Reviewed and Electronically Signed By: Aleisha Abreu Signed Date: 08/15/2024 06:57 ET Workstation ID: [id number] Transcribed By: Self Edit Transcribed Date: 08/15/2024 06:43 ET Maria L Tabor MD IMG XR PROCEDURES Final Result * Annual BMP Blood Test (06/30/2023) Pathologist [facility] Annual BMP Blood Test abstracted Historical Provider HEALTH MAINTENANCE Final Result * Lipid panel (06/30/2023) Pathologist [facility] LDL/HDL Ratio 3 0 - 4 Triglycerides 108 0 - 150 mg/dL Cholesterol 134 0 - 200 mg/dL HDL 52 >=40 mg/dL LDL Cholesterol 61 0 - 100 mg/dL Blood Venous blood specimen / Unknown Result [facility] Historical Provider LAB BLOOD ORDERABLES Shobha l Result * DXA BONE DENSITY STUDY 1+ SITS AXIAL SKEL (09/09/2021 1:46 PM EDT) Anatomical Region Laterality Modality Bone Densitometr y 07/09/2021 10:0 9 AM EST Narrative 09/09/2021 5:45 PM EDT BONE DENSITY Lumbar Spine T-score is +1.0 [...] classified as having normal bone density. [facility] Department of Internal Medicine recommends using [...] beclassified as having normal bone density. [facility] Department of Internal Medicine recommendsusing National [...] PM EDT Narrative 09/09/2021 11:03 AM EDT [facility] Diagnostic Imaging Department [address] [place], [place] [id number] Patient: JULIA YAO /Age/Sex: 1950 - 71 - F Unit#: [id number] [facility] Mnemonic/Ordering Site: [facility]/SPCT Ordering Physician: GRACE ALBARRAN MD CT Lung [...] performed per lung cancer CT screening protocol. Dose reduction techniques utilized including automated exposure control [...] in 3-6 months recommended to document stability. [id number] G9637, G9557, G9551 Dictating Physician: TITO PATEL MD Electronically Signed by: TITO PATEL MD Dic Date/Time: 09/08/21 1849 Sign date/Time: 09/08/21 1900 Procedure Note Tito Patel MD - 04/21/2022 [facility] Diagnostic Imaging Department [address] [place] [address] Patient: JULIA YAO /Age/Sex: 1950 - 71 - F Unit#: [id number] Location/Status: [facility] Mnemonic/Ordering Site: [facility] Ordering Physician: GRACE ALBARRAN MD CT Lung Screening Low Dose - 09/08/21 - 7397 ADDENDUM Lung RADS category 4A, probably suspicious [...] CT in 3-6 months recommended to documentstability. [id number] G9637, G9557, G9551 Dictating Physician: TITO PATEL MD Electronically Signed by: TITO PATEL MD Dic Date/Time: 09/08/21 1849 Sign date/Time: 09/08/21 1900 Grace Albarran MD [facility] PROCEDURES Final Result * Colonoscopy (03/06/2020) Colonoscopy no interpretation , abstracted Anatomical Region Laterality Modality Other [place] Provider HEALTH MAINTENANCE Final Result from Last 3 Months or Most Recently Relevant to Health Maintenance Insurance MEDICARE [facility] [address] [place] [address] Advance Directives Documents on File Type Date Recorded Patient Chip Applying Machine Tender Expl anation Health Care Decision (hx) 11/19/2021 AD BLOOM DIRECTIVE Health Care Decision (hx) 11/19/2021 AD BLOOM DIRECTIVE Health Care Decision (hx) 11/19/2021 AD BLOOM DIRECTIVE Health Care Decision (hx) 11/19/2021 AD BLOOM DIRECTIVE Health Care Decision (hx) 11/19/2021 AD BLOOM DIRECTIVE Health Care Decision (hx) 11/19/2021 AD BLOOM DIRECTIVE Health Care Decision (hx) 11/19/2021 AD BLOOM DIRECTIVE Care Teams Baker Apprentice Relationship Specialty Start Date End Date Maria L Tabor MD [address] [place] [id number] PCP - General Internal Medicine 08/14/20
== END 2024-11-13 15:39 | disposition home or self-care (01) ==
LOC: HO.HOP 14:08
PROVIDERS: PCP Internal Medicine; Visit Provider Clinical Nurse Specialist Psychiatric/Mental Health
DX: F33.41 Major depressive disorder, recurrent, in partial remission (principal); F41.1 Generalized anxiety disorder; F43.21 Adjustment disorder with depressed mood
CPT/HCPCS: 99214

== ENCOUNTER → 2024-11-13 14:08 | Outpatient (BNVA) | payer MEDICARE, OTHER, SELFPAY | PROVIDERS: PCP Internal Medicine; Visit Provider Clinical Nurse Specialist Psychiatric/Mental Health | DX: F33.41 Major depressive disorder, recurrent, in partial remission (principal); F41.1 Generalized anxiety disorder; F43.21 Adjustment disorder with depressed mood | CPT/HCPCS: 99212 ==

== ENCOUNTER 2025-03-05 15:10 | Outpatient (REF) | payer MEDICARE, OTHER, SELFPAY ==
[2025-03-05 16:19] LABS: MANUAL DIFF FLAG NO
[2025-03-05 17:09] LABS: Hematocrit 44.3 % (37.0-47.0); Hemoglobin 14.7 g/dl (12.0-16.0); Imm Gran Abs Auto 0.04 X10*3/uL (0.00-0.03); Imm Gran Pct Auto 0.4 % (0.0-0.4); Lymphocytes Absolute Auto 2.8 X10*3/uL (1.2-4.9); Mean Corpuscular HGB Conc 33.2 g/dl (31.0-35.0); Mean Corpuscular Hemoglobin 31.0 pg (27.0-33.0); Mean Corpuscular Volume 93.5 fL (80.0-98.0); NRBC Abs Auto 0.000 X10*3/uL (0.0-0.012); NRBC Pct Auto 0.0 /100WBC (0.0-0.2); Platelet Count 315 X10*3/uL (160-400); Red Blood Count 4.74 X10*6/uL (4.20-5.50); White Blood Count 10.5 X10*3/uL (4.8-10.8)
[2025-03-05 17:42] LABS: Alanine Aminotransferase 32 U/L (0-31); Albumin Level 4.4 g/dL (3.5-5.0); Alkaline Phosphatase 75 U/L (39-117); Anion Gap 11 (12-20); Aspartate Amino Transferase 35 U/L (5-31); Blood Urea Nitrogen 15 mg/dL (9-16); Calcium 9.2 mg/dL (8.4-10.2); Carbon Dioxide 26 mmol/L (22-29); Chloride 111 mmol/L (96-108); Estimated Glomerular Filt Rate > 60; Magnesium 2.0 mg/dL (1.6-2.6); Potassium 3.8 mmol/L (3.3-5.1); Sodium 144 mmol/L (135-145); Total Protein 6.9 g/dL (6.5-8.0)
[2025-03-05 18:14] LABS: Folate > 20.0 ng/mL (> or = 4.0); Vitamin B12 1161 pg/mL (200-900)
== END 2025-03-05 15:11 | disposition home or self-care (01) ==
LOC: HO.LAB 15:10
PROVIDERS: PCP Internal Medicine; Visit Provider Clinical Nurse Specialist Psychiatric/Mental Health
DX: F33.41 Major depressive disorder, recurrent, in partial remission (principal); F43.21 Adjustment disorder with depressed mood; F41.1 Generalized anxiety disorder; R29.6 Repeated falls; R53.1 Weakness; R63.0 Anorexia; E03.9 Hypothyroidism, unspecified; Z79.899 Other long term (current) drug therapy
CPT/HCPCS: 36415; 80053; 82607; 82746; 83036; 83735; 84425; 84443; 85025; 99212

== ENCOUNTER 2025-03-05 15:10 | Outpatient (AMB) | payer MEDICARE, OTHER, SELFPAY ==
--- OUTSIDE RECORDS SUMMARY | 2022-07-14 15:04 | XMS_ITS | Encounter Summary ---
Author Organization [facility] Address [address] [place] [address] Care Team Providers Care In Classroom Tutor Name Role Phone Unknown Primary Care Provider [phone] Encounter Details Date Type Department Care Team (Late st Contact Info) Description 07/14/2022 4:04 PM EDT Hospital Encounter [facility] [address] [place] [address] Mack Pleitez MD [address] [place] [phone] Social History Tobacco Use Types Packs/Day Years Used Date Smoking Tobacco: Never Assessed Comments Unknown Sex and Gender Information Value Date Recorded Sex Assigned at Not on file Legal Sex Female 1:00 PM EDT Gender Identity Not on file Sexual Orientation Not on file COVID-19 Exposure Response Date Recorded In the last 10 days, have yo u been in contact with someone who was confirmed or suspected to have Coronavirus/COVID-19? Unable to assess 07/14/2022 3:22 PM EDT documented as of this encounter Plan of Treatment Not on file documented as of this encounter Procedures Procedure Name Priority Date/Time Associated Diagnosis Comments XR CHEST 2 VIEWS STAT 07/14/2022 4:10 PM EDT Bronchitis documented in this encounter Results * XR Chest 2 views (07/14/2022 4:10 PM EDT) Anatomical Region Laterality Modality Chest Computed Radiogr aphy 07/14/2022 4:13 PM EDT Impressions 07/14/2022 4:14 PM EDT Status post partial right lobectomy. No acute process. Narrative 07/14/2022 4:14 PM EDT XR CHEST 2 VIEWS: 07/14/2022 4:04 PM CLINICAL HISTORY: SOB and chest tightness with fatigue, rule out PNA, history of right partial lobesctomy after lung cancer. Acute cough. COMPARISON: None FINDINGS: Final masses seen in right upper lung zone compatible with a history of partial right lobectomy. The lungs are clear. Cardiomediastinal and hilar silhouette are unremarkable. Pulmonary vascularity is normal. No pleural effusion or pneumothorax. Osseous structures are intact for age. Mild degenerative changes are seen in the spine. Procedure Note Anna Moss MD - 07/14/2022 XR CHEST 2 VIEWS: 07/14/2022 4:04 PM CLINICAL HISTORY: SOB and chest tightness with fatigue, rule out PNA, history of rightpartial lobesctomy after lung cancer. Acute cough. COMPARISON: None FINDINGS: Final masses seen in right upper lung zone compatible with a history ofpartial right lobectomy. The lungs are clear. Cardiomediastinal and hilarsilhouette are unremarkable. Pulmonary vascularity is normal. No pleuraleffusion or pneumothorax. Osseous structures are intact for age. Mild degenerative changes are seen in thespine. IMPRESSION: Status post partial right lobectomy. No acute process. Clau Simon PA-C IMG DIAGNOSTIC IMAGING OR DERABLES Final Result documented in this encounter Visit Diagnoses Not on filedocumented in this encounter Care Teams In Classroom Tutor Relationship Specialty Start Date End Date Unknown Unknow Provider Address PCP - General 05/02/22 documented as of this encounter
--- OUTSIDE RECORDS SUMMARY | 2025-03-01 12:00 | XMS_ITS | Encounter Summary ---
Author Organization [facility] Address [address] [place] [address] Care Team Providers Care Biomedical Equipment Specialist Name Role Phone Maria L Tabor MD Primary Care Prov ider Reason for Referral * Imaging (Routine) - Closed Specialty Diagnoses / Procedures Referred By Contac t Referred To Contact Radiology Diagnoses Dizziness Falling episodes Procedures MR Brain wo Contrast Nataly Mead PA [address] [place], [place] Phone: tel: fax: [address] Phone: tel: Referral ID Status Reason Start Date Expiration Date Visits Re quested Visits Authorized [id number] Closed 02/07/2025 02/07/2026 1 1 Reason for Visit * Imaging (Routine) - Closed Specialty Diagnoses / Procedures Referred By Contac t Referred To Contact Radiology Diagnoses Dizziness Falling episodes Procedures MR Brain wo Contrast Nataly Mead PA [address] [place], [place] Phone: tel: fax: [address] Phone: tel: Referral ID Status Reason Start Date Expiration Date Visits Re quested Visits Authorized [id number] Closed 02/07/2025 02/07/2026 1 1 Encounter Details Date Type Department Care Team (Latest Contact Info) Description 03/01/2025 1:00 PM EDT - 03/01/2025 11:59 PM EDT Hospital Encounter Radiology Department - [address] [address] Dizziness; Falling episodes Discharge Disposition: Home or Self Care Social History Tobacco Use Types Packs/Day Years [...] AM EDT documented as of this encounter Medications at Time of Discharge ARIPiprazole (ABILIFY) 2 mg tablet Take 1 tablet (2 mg total) by mouth 1 (one) time each day. atorvastatin (LIPITOR) 80 mg tablet TAKE 1 TABLET BY MOUTH EVERY DAY IN THE EVENING 90 tablet 1 5 buPROPion XL (WELLBUTRIN XL) 300 mg 24 hr tablet Take 1 tablet (300 mg total) by mouth 1 (one) time each day in the morning. 4 escitalopram (LEXAPRO) 20 mg tablet Take 1 tablet (20 mg total) by mouth 1 (one) time each day. folic acid (FOLVITE) 1 mg tablet Take 1 tablet (1,000 mcg total) by mouth 1 (one) time each day. gabapentin (NEURONTIN) 300 mg capsule Take 300 mg by mouth 4 times daily. Managed by Julia Parikh RN CS PC Psychopharmacology levothyroxine (SYNTHROID, LEVOTHROID) 88 mcg tabletIndication s:Hypothyroidism , unspecified TAKE 1 TABLET BY MOUTH EVERY DAY 90 tablet 1 5 loperamide (IMODIUM) 2 mg capsule Take 1 Capsule by mouth 4 times daily as needed for Diarrhea. 04/15/202 4 LORazepam (ATIVAN) 0.5 mg tablet Take 1 tablet (0.5 mg total) by mouth 2 (two) times a day if needed. 3 meclizine (ANTIVERT) 12.5 mg tablet Take 1 tablet (12.5 mg total) by mouth 3 (three) times a day if needed for dizziness. 90 tablet 1 5 03/09/20 25 traZODone (DESYREL) 100 mg tablet Take 1 tablet (100 mg total) by mouth at bedtime. turmeric root extract 500 mg tablet Take by mouth. valsartan-hydroC HLOROthiazide (DIOVAN-HCT) 320-25 mg per tablet TAKE 1 TABLET BY MOUTH EVERY DAY 90 tablet 1 5 documented as of this encounter Discharge Disposition Disposition Code Departure Means Destination Home or Self Care documented in this encounter Plan of Treatment Not on file documented as of this encounter Procedures Procedure Name Priority Date/Time Associated Diagnosis Comments MR BRAIN WO CONTRAST Routine 03/01/2025 2:57 PM EDT Dizziness Falling episodes documented in this encounter Results * MR Brain wo Contrast (03/01/2025 2:57 PM EDT) Anatomical Region Laterality Modality Head and Neck Magnetic Resonan ce 03/01/2025 3:19 PM EDT Impressions 03/01/2025 3:26 PM EDT Moderate white matter disease. Differential considerations include infectious and/or inflammatory white matter disease including chronic small vessel ischemia, Lyme disease, multiple sclerosis, small vessel vasculitides such as lupus, and migraines, amongst other etiologies. -------- FINAL REPORT -------- Dictated By: Bushra Edward Dictated Date: 03/01/2025 15:19 ET Assigned Physician: Bushra Edward Reviewed and Electronically Signed By: Bushra Edward Signed Date: 03/01/2025 15:26 ET Workstation ID: [id number] Transcribed By: Self Edit Transcribed Date: 03/01/2025 15:19 ET Narrative 03/01/2025 3:26 PM EDT MR BRAIN WO CONTRAST MRI BRAIN WITHOUT CONTRAST HISTORY: Dizziness, falling. COMPARISON: None. Technique: MRI of the brain without contrast was performed utilizing the standard departmental protocol. FINDINGS: There are patchy and confluent areas of T2/FLAIR prolongation in the periventricular, deep and subcortical white matter. There are also several small areas of T2/FLAIR hyperintensity in the erwin. The ventricles and sulci are normal in size and symmetric. There is no acute intracranial hemorrhage or acute infarct. There is no mass effect or midline shift. The basal cisterns are patent. There is mild membrane thickening at the left side of the sphenoid sinus. The paranasal sinuses and mastoid air cells are otherwise clear. Pituitary gland is grossly unremarkable infundibulum is midline.. There is no abnormality at the foramen magnum. Procedure Note Bushra Edward MD - 03/01/2025 MR BRAIN WO CONTRAST MRI BRAIN WITHOUT CONTRAST HISTORY: Dizziness, falling. COMPARISON: None. Technique: MRI of the brain without contrast was performed utilizing thestandard departmental protocol. FINDINGS: There are patchy and confluent areas of T2/FLAIR prolongation in theperiventricular, deep and subcortical white matter. There are also severalsmall areas of T2/FLAIR hyperintensity in the erwin. The ventricles and sulci are normal in size and symmetric. There is noacute intracranial hemorrhage or acute infarct. There is no mass effect ormidline shift. The basal cisterns are patent. There is mild membrane thickening at the left side of the sphenoid sinus.The paranasal sinuses and mastoid air cells are otherwise clear. Pituitary gland is grossly unremarkable infundibulum is midline.. There is no abnormality at the foramen magnum. IMPRESSION: Moderate white matter disease. Differential considerations includeinfectious and/or inflammatory white matter disease including chronicsmall vessel ischemia, Lyme disease, multiple sclerosis, small vesselvasculitides such as lupus, and migraines, amongst other etiologies. -------- FINAL REPORT -------- Dictated By: Bushra Edward Dictated Date: 03/01/2025 15:19 ET Assigned Physician: Bushra Edward Reviewed and Electronically Signed By: Bushra Edward Signed Date: 03/01/2025 15:26 ET Workstation ID: [id number] Transcribed By: Self Edit Transcribed Date: 03/01/2025 15:19 ET us Nataly MCGRAW IMG MRI PROCEDURES Final R esult documented in this encounter Visit Diagnoses Diagnosis Dizziness Dizziness and giddiness Falling episodes documented in this encounter Care Teams Biomedical Equipment Specialist Relationship Specialty Start Date End Date Maria L Tabor MD [address] [place] [id number] PCP - General Internal Medicine 01/02/25 documented as of this encounter
--- NOTE | 2025-03-05 15:21 | MHC.OFFVISPS ---
Intake Intake Visit Reasons: depression Caddy Required: No Allergies No Known Allergies Allergy (Verified 07/15/23 15:16) Medication List - Last Reconciled 03/05/25 by Julia Parikh APRN aripiprazole 2 mg PO DAILY atorvastatin 80 mg PO QPM bupropion HCl XL 300 mg PO DAILY escitalopram oxalate 20 mg PO DAILY gabapentin 300 mg PO TID levothyroxine 88 mcg PO DAILY lorazepam 0.5 mg PO BID PRN trazodone watch for over-sedation; take 1- 2 tablets daily at BEDTIME as needed for sleep valsartan-hydrochlorothiazide 320-25 mg 1 tab PO DAILY HPI- Psychiatric Chief Complaint: depression HPI Narrative: Pt struggling with some depression symptoms and anxiety; she is frequently distracted; she is forgetful; she took a wrong turn today on way here and was late because of it. 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 Pt has had some dizzy spells pt reports eating one time a day often skipping meals. She has fallen several times while walking her dog- she states no injuries. She also feels she has balance problems leaning to one side at times. she is seeing her PCP for this. PCP did MRI of brain and pt says it was negative. PHQ9=10 and GAD7= 12. Pt completed mini Mental status exam and scored 29/30. she is willing to have some blood work to rule out medical etiology to forgetfulness, fatigue, weakness. She has a drink of ETOH 1-2 a week; she does use THC several times a week. Past Psychiatric History: 1-[facility] age 22 depression 1- PHP in 2019 referred by [facility], no SI x 2 weeks, 4 months ago depression increased severely, new onset of severe anxiety, started [facility] php and completed 20 days before she really felt much better; depression was very deep, Dr. Langley made a med change there, she reports she had passive SI for weeks before going, no active SI; depression symptoms included not getting out of bed, not eating, no interest, low energy, low motivation; severe anxiety with anxiety attacks Pt says she has always had depression her whole life; had a severe bout of post depression at age 22 and was hospitalized at [facility]; ,no hospitalizations after that; lost her first child 21 yrs ago when her daughter in a MVA; She lost another daughter 2 yrs ago from an accidental overdose on heroin and fentanyl; her daughter Patsy of an opiate overdose on mother's day in 2013; her daughter had been doing well and in recovery and her was a shock; her was having open heart surgery at the same time and her older daughter was going through a divorce; pt reports she felt numb and probably didn't grieve; she lost 18 lbs in 3 months, 25 years on Prozac which worked well up until a few months ago; symptoms when very depression - not getting out of bed, no lunch with friends Subjective Subjective Medication Compliance: Yes Side effects from medications: No Review of Systems Medical Review of Systems: unchanged Mental Status Exam Mental Status Exam Patient Appearance: Well Grooomed and Appropriate Patient Orientation: Person, Place, Time and Situation Level of Consciousness: Awake and Appropriate Patient Behavior: Appropriate, Cooperative and Good Eye Contact Mood Description: Appropriate, Depressed, Anxious and Sad Affect Description: Appropriate, Depressed, Cheerful, Anxious and Sad Patient Cognition Impaired: No Ability to Follow Directions: Good Speech Pattern: Clear and Appropriate Memory Description: Intact Hallucinations: None Delusions: Not Present Thought Process: Intact and Goal Oriented Thought Content: positive for Intact and positive for Goal Oriented Judgement: Good Assessment and Plan Assessment & Plan (1) Major depression, recurrent: Status: Acute Qualifiers: Active/Remission status: in partial remission Qualified Code(s): F33.41 - Major depressive disorder, recurrent, in partial remission Code(s): F33.9 - Major depressive disorder, recurrent, unspecified (2) STEVE (generalized anxiety disorder): Status: Acute Code(s): F41.1 - Generalized anxiety disorder (3) Complicated grief: Status: Acute Code(s): F43.21 - Adjustment disorder with depressed mood (4) Long-term use of high-risk medication: Status: Acute Code(s): Z79.899 - Other moth exterminator (current) drug therapy (5) Falling: Status: Acute Code(s): R29.6 - Repeated falls (6) Weakness: Status: Acute Code(s): R53.1 - Weakness (7) Anorexia: Status: Acute Code(s): R63.0 - Anorexia Plan REDUCE or STOP THC use labs ordered Reduce abilify to 1 mg (1/2 tab) daily x 14 days then stop reduce gabapentin to 200mg twice a day trazodone 25mg (1/2 tab) at bedtime and only take additional 1/2 if can't fall aleep in one hour. Pt not taking lorazepam daily -take oonly 1--2 times every 1-2 weeks. for now lexapro and wellbutrin contiue as is return in 4 week Medications: New gabapentin stop 300mg capsules 200 mg (2 x 100 mg) PO BID 120 caps 2RF Changed From trazodone watch for over-sedation; take 1- 2 tablets daily at BEDTIME as needed for sleep 180 tabs 1RF sleep To trazodone 50 mg orally watch for over-sedation; 90 tabs 1RF sleep On Hold lorazepam Hold Comment: Doctor's Order 0.5 mg PO BID PRN 60 tabs 2RF anxiety Orders: Orders Vitamin B12 and Folate 03/05/25 F33.41 - Major depressive disorder, recurrent, in partial remission, R53.1 - Weakness Comprehensive Canvas. Panel Fast 03/05/25 F33.41 - Major depressive disorder, recurrent, in partial remission, Z79.899 - Other moth exterminator (current) drug therapy TSH reflex Free T4 03/05/25 E03.9 - Hypothyroidism, unspecified Complete Blood Count Auto Diff 03/05/25 F33.41 - Major depressive disorder, recurrent, in partial remission, Z79.899 - Other moth exterminator (current) drug therapy Vitamin B1 03/05/25 F33.41 - Major depressive disorder, recurrent, in partial remission, R53.1 - Weakness Magnesium 03/05/25 R53.1 - Weakness Hemoglobin A1c 03/05/25 R29.6 - Repeated falls, R53.1 - Weakness, R63.0 - Anorexia Counseling and coordination of Care Pt. Self Management counseling: Maintenance-social rhythm, Mod caffeine/ETOH intake, Sleep hygiene, Behavior activation, General coping skills and Problem solving Medication management counseling: Effectiveness, Side effects, Dosing range, Duration, Drug interaction and Adherence Diagnosis and Prognosis Counseling: Accuracy of diagnosis, Prognosis over time, Impact of diagnosis on life functions, Impact of family relationship, Problematic behaviors secondary to diagnosis and Adequacy of current interventions Details: I spent 45 minutes reviewing the record, seeing the patient and documenting in the medical record. Counseling provided to the patient/caregiver as outlined below. Addressed patient/caregiver concerns regarding current medication regime including effective adherence. Addressed patient/caregiver concerns regarding diagnosis and prognosis including accuracy of diagnosis, prognosis over time, impact of diagnosis. Addressed patient/caregiver concerns regarding impact of recent stressors. [facility] Medical History (Updated 03/05/25 @ 15:29 by Julia Parikh APRN) Lung cancer Social History: lives with ; has one adult daughter and two grandchildren. Lost one daughter in 1998 from MVA. lost another daughter from accidental overdose on opiates in 2017. Substance History: none Trauma History: Lost one daughter Clover in 1998 from MVA. lost another daughter Patsy from accidental overdose on opiates in 2017. Coding Level of Care Code Est Pt Level 5 (23996) Diagnoses Recurrent major depressive disorder, in partial remission F33.41 Active/Remission status: in partial remission STEVE (generalized anxiety disorder) F41.1 Complicated grief F43.21 Long-term use of high-risk medication Z79.899 Falling R29.6 Weakness R53.1 Anorexia R63.0
--- OUTSIDE RECORDS SUMMARY | 2025-03-05 18:04 | XMS_ITS | Clinical Summary ---
Author Organization [facility] Address [address] [place] [address] Care Team Providers Care Glass Bead Maker Name Role Phone Unknown Primary Care Provider [...] 88 07/14/2022 3:36 PM EDT Temperature 36.1 C (97 F) 07/14/2022 3:36 PM EDT Respiratory Rate 16 07/14/2022 3:36 PM EDT Oxygen Saturation 96% 07/14/2022 3:36 PM EDT Inhaled Oxygen Concentration - - Weight 61.2 kg (135 lb) 07/14/2022 3:36 PM EDT Height 157.5 cm (5' 2 ) 07/14/2022 3:36 PM EDT Body Mass Index 24.69 07/14/2022 3:36 PM EDT Plan of Treatment Health Maintenance Due Date Last Done Comments Advance Care Planning 1950 Hepatitis C Virus Screening 1950 DTaP/Tdap/Td Vaccines (1 - Tdap) 1971 Mammogram 1992 Colonoscopy 1997 Pneumococcal Vaccines 50+ (1 of 1 - PCV) 2002 Zoster (Shingles) Vaccine (1 of 2) 2002 DXA Bone Density (Females,Ages 65 and older) 2017 Influenza Vaccine 11/30/2024 COVID-19 Vaccine (3 - 2024-2 6 season) 2024 08/16/2020, 07/25/2020 RSV Vaccine 50 years and older and Patients (1 - 1-dose 75+ series) 2027 Hepatitis B Vaccines Aged Out No long er eligible based on patient's age to complete this topic Insurance MEDICARE PART A & B Care Teams Glass Bead Maker Relationship Specialty Start Date End Date Unknown Unknow Provider Address PCP - General 05/02/22
--- OUTSIDE RECORDS SUMMARY | 2025-03-05 18:04 | XMS_ITS | Encounter Summary ---
Author Organization [facility] Address [address] [place] [address] Care Team Providers Care Natural History Collections Curator Name Role Phone Maria L Tabor MD Primary Care Prov ider Encounter Details Date Type Department Care Team (Late st Contact Info) Description 02/07/2025 Results Follow-Up Adult Medicine [facility] [address] [place] [address] Nataly Mead PA [address] [place] [address] Social History Tobacco Use Types Packs/Day Years [...] on filedocumented in this encounter Care Teams Natural History Collections Curator Relationship Specialty Start Date End Date Maria L Tabor MD [address] [place] [address] PCP - General Internal Medicine 01/02/25 documented as of this encounter
--- OUTSIDE RECORDS SUMMARY | 2025-03-05 18:04 | XMS_ITS | Clinical Summary ---
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 Managed by Brittany Parikh RN CS PC Psychopharmacology Active loperamide [...] mg tablet Take by mouth. Activ e atorvastatin (LIPITOR) 80 mg tablet TAKE 1 TABLET BY MOUTH EVERY DAY IN THE EVENING 90 tablet 1 09/21/19 25 Active valsartan-hydr oCHLOROthiazid e (DIOVAN-HCT) 320-25 mg per tablet TAKE 1 TABLET BY MOUTH EVERY DAY 90 tablet 1 12/19/19 25 Active levothyroxine (SYNTHROID, LEVOTHROID) 88 mcg tabletIndicati ons:Hypothyroi dism, unspecified TAKE 1 TABLET BY MOUTH EVERY DAY 90 tablet 1 12/19/19 25 Active meclizine (ANTIVERT) 12.5 mg tablet Take 1 tablet (12.5 mg total) by mouth 3 (three) times a day if needed for dizziness. 90 tablet 1 02/08/20 25 025 Active Active Problems Problem Noted Date Diagnosed Date History of lung cancer 01/14/2025 Assessment & Plan (01/14/2025 1:58 PM EDT): Ms. Gaines is a 74 yr. female who had a robotic right upper lobectomy in October 2021 for two primary lung cancers: tumor #1 stage 1A (pT1b pN0) acinar adenocarcinoma and tumor #2 minimally invasive lepidic adenocarcinoma measuring 3x3mm. Her most recent chest CT surveillance scan formed on January 02, 2025 at [facility] which does show a new small 2 mm juxtapleural nodule in the posterior medial left lower lobe, a stable 5 mm left upper lobe nodule and a few other 2 mm small lung nodules in both lungs which remain unchanged. She was informed that due to the size and location of this new nodule it would not change the interval time duration from her standard 12-month chest CT follow-up and her next chest CT follow-up scan will be in December 2025 and have a visit at the thoracic surgery department thereafter to discuss results. Chronic cough 08/14/2024 Multiple pulmonary nodules 01/18/2024 [...] shoulder. Hypertension 04/11/2018 Hypothyroidism 04/11/2018 Polymyalgia rheumatica ([facility] V24) 04/11/2018 Overview (04/12/2024): Bothered shoulders mostly Trochanteric bursitis of left hip 04/11/2018 Encounters Date Type Department Care Team Description 03/01/2025 1:00 PM EDT - 03/01/2025 11:59 PM EDT Hospital Encounter Radiology Department [address] [address] Dizziness; Falling episodes Discharge Disposition: Home or Self Care 02/07/2025 8:45 AM EDT Office Visit [facility] Medicine [facility] [address] [place] [address] Nataly Mead PA Dizziness (Primary Dx); Falling episodes; Gait instability; Memory changes; Dizziness and giddiness; Vitamin D deficiency 02/07/2025 Results Follow-Up [facility] [address] [place] [address] Nataly Mead PA 01/14/2025 11:00 AM EDT Office Visit Thoracic Surgery - [place] [address] [place] [address] James Ramos PA History of lung cancer (Primary Dx) 01/02/2025 1:27 PM EDT - 01/02/2025 11:59 PM EDT Hospital Encounter [facility] CT Scan [address] [place] [address] History of lung cancer Discharge Disposition: Home or Self Care from Last 3 Months Immunizations Immunization Administration Dates Next Due Influenza trivalent, 0.5mL [...] eyes OTHER SURGICAL HISTORY 11/17/2021 Right PROCEDURE: CO THORACOSCOPY W/LOBECTOMY SINGLE LOBE; COMMENT: RUL Medical History Medical History Date Comments Hypertension DX:Hypertension Mixed hyperlipidemia DX:Mixed hy perlipidemia Hypothyroidism DX:Hypothyroidis m Hiatal hernia DX:Hiatal hernia Family History Medical History Relation Name Comments Throat cancer Brother CAD s/p CABG i ssues start age late 50s, DM II Coronary artery disease Father CA a ge 61 , DM II Coronary [...] Sign Reading Time Taken Comments Blood Pressure 133/85 02/07/2025 9:09 AM EDT Pulse 72 02/07/2025 9:09 AM EDT Temperature 36.8 C (98.2 F) 02/07/2025 9:09 AM EDT Respiratory Rate 16 01/14/2025 10:46 AM EDT Oxygen Saturation 99% 01/14/2025 10:46 AM EDT Inhaled Oxygen Concentration - - Weight 63 kg (138 lb 12.8 oz) 02/07/2025 9:09 AM EDT Height 157.5 cm (5' 2 ) 01/14/2025 10:46 AM EDT Body Mass Index 25.39 01/14/2025 10:46 AM EDT Plan of Treatment Health Maintenance Due Date Last Done Comments Breast Cancer Screening 1950 Falls Risk Assessment 04/10/2022 Hepatitis C Screening 04/10/2022 Social Influencers of Health Screening 04/10/2022 Lung Cancer Screening (Low Dose CT) 09/09/2022 09/09/2021 Medicare Annual Wellness Visit 02/05/2024 02/04/2023 Depression Screening 05/02/2024 COVID-19 Vaccine ( season) 2024 02/22/2021, 08/16/2020, 07/25/2020 Hypertension/CHF/CAD Annual BMP Blood Test 02/07/2026 02/07/2025, 06/30/2023 RSV Immunization Adult Patients (1 - 1-dose 75+ series) 2027 Cholesterol Screening (Lipid Panel) 06/29/2028 06/30/2023 Colorectal Cancer Screening: Colonoscopy 03/06/2030 03/06/2020 DTaP,Tdap,and Td Vaccines (2 - Td or Tdap) 07/10/2031 07/09/2021 Osteoporosis Screening (Bone Density Screening) 09/10/2031 09/09/2021 Zoster Vaccines Completed 01/09/2018, 09/19/2017 Pneumococcal Vaccine: 50+ Years Completed 12/16/2021, 02/22/2018 Influenza Vaccine Completed 02/03/2025, , 01/20/2020, Additional history exists HIB Vaccines Aged Out No longer eligi [...] 03/01/2025 2:57 PM EDT Dizziness Falling episodes CBC WITH AUTO DIFFERENTIAL Routine 02/07/2025 9:38 AM EDT Dizziness Memory changes VITAMIN D 25 HYDROXY Routine 02/07/2025 9:38 AM EDT Vitamin D deficiency VITAMIN B12 Routine 02/07/2025 9:38 AM EDT Dizziness Memory changes FOLATE Routine 02/07/2025 9:38 AM EDT Dizziness Memory changes TREPONEMA PALLIDUM ANTIBODY WITH REFLEX TO RPR AND PARTICLE AGGLUTINATION Routine 02/07/2025 9:38 AM EDT Dizziness Memory changes SEDIMENTATION RATE Routine 02/07/2025 9: 38 AM EDT Dizziness Memory changes THYROID STIMULATING HORMONE WITH REFLEX TO FREE T4 AND FREE T3 Routine 02/07/2025 9:38 AM EDT Dizziness Memory changes COMPREHENSIVE METABOLIC PANEL Routine 02/07/2025 9:38 AM EDT Dizziness Memory changes CBC AND DIFFERENTIAL Routine 02/07/2025 9:38 AM EDT Dizziness Memory changes CT CHEST WO CONTRAST Routine 01/02/2025 1:41 PM EDT History of lung cancer LIPID PANEL Routine 06/30/2023 DXA BONE DENSITY STUDY 1+ SITS AXIAL SKEL Routine 09/09/2021 1:46 PM EDT Encounter for screening for osteoporosis CT LUNG SCREENING LOW DOSE Routine 09/09/2021 11:03 AM EDT Personal history of nicotine dependence HM COLONOSCOPY Routine 03/06/2020 from Last 3 Months or Most Recently Relevant to Health Maintenance Results * MR Brain wo Contrast (03/01/2025 [...] Signed Date: 03/01/2025 15:26 ET Workstation ID: [id number] Transcribed By: Self Edit Transcribed Date: 03/01/2025 [...] the brain without contrast was performed utilizing [facility]al protocol. FINDINGS: There are patchy and [...] Signed Date: 03/01/2025 15:26 ET Workstation ID: [id number] Transcribed By: Self Edit Transcribed Date: 03/01/2025 15:19 ET Nataly MCGRAW IMG MRI PROCEDURES Final R esult * Treponema pallidum antibody with reflex to RPR and particle agglutination (02/07/2025 9:38 AM EDT) [facility] T. Pallidum Antibodies Negative Negative LAB CHEMISTRY METHOD 02/07/2025 2:15 PM EDT [facility] Blood Venous blood specimen / Unknown Venipuncture / Unknown 02/07/2025 9:38 AM EDT 02/07/2025 9:38 AM EDT Nataly MCGRAW LAB BLOOD ORDERABLES Final Result Performing Organization Address City/[facility]/ZIP Co de Phone Number [facility] [address] [place] [address], [place] [phone] * Thyroid stimulating hormone with reflex to free t4 and free t3 (02/07/2025 9:38 AM EDT) [facility] TSH 0.57 0.40 - 4.00 mcIU/mL LAB CHEMISTRY METHOD 02/07/2025 2:03 PM EDT [facility] Blood Venous blood specimen / Unknown Venipuncture / Unknown 02/07/2025 9:38 AM EDT 02/07/2025 9:38 AM EDT Nataly MCGRAW LAB BLOOD ORDERABLES Final Result Performing Organization Address City/[facility]/ZIP Co de Phone Number [facility] [address] [place] [address], [place] [phone] * (ABNORMAL) CBC auto differential (02/07/2025 9:38 AM EDT) [facility] WBC 10.3 4.8 - 10.8 K/[facility] LAB HEMETOLOGY METHOD 02/07/2025 11:50 AM EDT [facility] RBC 4.80 3.80 - 4.80 M/[facility] LAB HEMETOLOGY METHOD 02/07/2025 11:50 AM EDT [facility] Hemoglobin 15.0 11.5 - 16.0 g/dL LAB HEMETOLOGY METHOD 02/07/2025 11:50 AM [facility] Hematocrit 45.1 35.0 - 47.0 % LAB HEMETOLOGY METHOD 02/07/2025 11:50 AM [facility] MCV 94.5 79.0 - 98.0 FL LAB HEMETOLOGY METHOD 02/07/2025 11:50 AM [facility] MCH 31.4 27.0 - 32.0 pcg LAB HEMETOLOGY METHOD 02/07/2025 11:50 AM [facility] MCHC 33.3 32.0 - 37.0 g/dL LAB HEMETOLOGY METHOD 02/07/2025 11:50 AM [facility] RDW 13.0 11.0 - 15.0 % LAB HEMETOLOGY METHOD 02/07/2025 11:50 AM [facility] Platelets 321 130 - 400 K/mcL LAB HEMETOLOGY METHOD 02/07/2025 11:50 AM [facility] MPV 9.1 7.0 - 11.0 FL LAB HEMETOLOGY METHOD 02/07/2025 11:50 AM [facility] NRBC 0.0 <1.0 % LAB HEMETOLOGY METHOD 02/07/2025 11:50 AM [facility] NRBC Absolute 0.00 <0.10 K/mcL LAB HEMETOLOGY METHOD 02/07/2025 11:50 AM [facility] Neutrophils Relative 79.5 % LAB HEMETOLOGY METHOD 02/07/2025 11:50 AM [facility] Lymphocytes Relative 12.4 % LAB HEMETOLOGY METHOD 02/07/2025 11:50 AM [facility] Monocytes Relative 5.4 % LAB HEMETOLOGY METHOD 02/07/2025 11:50 AM EDT [facility] Eosinophils Relative 1.3 % LAB HEMETOLOGY METHOD 02/07/2025 11:50 AM EDT [facility] Basophils Relative 0.7 % LAB HEMETOLOGY METHOD 02/07/2025 11:50 AM EDT [facility] Immature Granulocytes Relative 0.7 % LAB HEMETOLOGY METHOD 02/07/2025 11:50 AM EDT [facility] Neutrophils Absolute 8.21(H) 1.50 - 7.00 K/mcL LAB HEMETOLOGY METHOD 02/07/2025 11:50 AM EDT [facility] Lymphocytes Absolute 1.28 1.00 - 5.00 K/mcL LAB HEMETOLOGY METHOD 02/07/2025 11:50 AM EDT [facility] Monocytes Absolute 0.56 0.20 - 1.00 K/mcL LAB HEMETOLOGY METHOD 02/07/2025 11:50 AM EDT [facility] Eosinophils Absolute 0.13 0.00 - 0.50 K/mcL LAB HEMETOLOGY METHOD 02/07/2025 11[facility] Basophils Absolute 0.07 0.00 - 0.20 K/mcL LAB HEMETOLOGY METHOD 02/07/2025 11:50 AM EDT [facility] Immature Granulocytes Absolute 0.07(H) 0.00 - 0.03 K/mcL LAB HEMETOLOGY METHOD 02/07/2025 11:50 AM EDT [facility] Blood Venous blood specimen / Unknown Venipuncture / Unknown 02/07/2025 9:38 AM EDT 02/07/2025 9:38 AM EDT us Nataly MCGRAW LAB BLOOD ORDERABLES Final Result [facility] [address] [place] [address], [place] [phone] * Vitamin D 25 hydroxy (02/07/2025 9:38 AM EDT) [facility] Vit D, 25-Hydroxy 41.7 30.0 - 80.0 ng/mL LAB CHEMISTRY METHOD 02/07/2025 2:03 PM EDT [facility] Blood Venous blood specimen / Unknown Venipuncture / Unknown 02/07/2025 9:38 AM EDT 02/07/2025 9:38 AM EDT Nataly MCGRAW LAB BLOOD ORDERABLES Final Result [facility] [address] [place] [address], [place] [phone] * Sedimentation rate (02/07/2025 9:38 AM EDT) [facility] Sed Rate 7 0 - 30 mm/hr LAB HEMETOLOGY METHOD 02/07/2025 12:04 PM EDT [facility] Blood Venous blood specimen / Unknown Venipuncture / Unknown 02/07/2025 9:38 AM EDT 02/07/2025 9:38 AM EDT Nataly MCGRAW LAB BLOOD ORDERABLES Final Result [facility] [address] [place] [address], [place] [phone] * (ABNORMAL) Folate (02/07/2025 9:38 AM EDT) [facility] Folate >20.0(H) 2.8 - 17.0 ng/ml LAB CHEMISTRY METHOD 02/07/2025 1:02 PM EDT [facility] Blood Venous blood specimen / Unknown Venipuncture / Unknown 02/07/2025 9:38 AM EDT 02/07/2025 9:38 AM EDT Nataly MCGRAW LAB BLOOD ORDERABLES Final Result Performing Organization Address [facility]/ZIP Co de Phone Number [facility] [address] [place] [address], [place] [phone] * (ABNORMAL) Vitamin B12 (02/07/2025 9:38 AM EDT) [facility] Vitamin B-12 1,212(H) 250 - 900 pcg/mL LAB CHEMISTRY METHOD 02/07/2025 1:02 PM EDT [facility] Blood Venous blood specimen / Unknown Venipuncture / Unknown 02/07/2025 9:38 AM EDT 02/07/2025 9:38 AM EDT Nataly MCGRAW LAB BLOOD ORDERABLES Final Result Performing Organization Address [facility] de Phone Number [facility] [address] [place] [address], [place] [phone] * (ABNORMAL) Comprehensive metabolic panel (02/07/2025 9:38 AM EDT) [facility] Sodium 141 133 - 145 mmol/L LAB CHEMISTRY METHOD 02/07/2025 1:02 PM [facility] Potassium 3.8 3.5 - 5.5 mmol/L LAB CHEMISTRY METHOD 02/07/2025 1:02 PM [facility] Chloride 106 96 - 110 mmol/L LAB CHEMISTRY METHOD 02/07/2025 1:02 PM [facility] CO2 28 21 - 32 mmol/L LAB CHEMISTRY METHOD 02/07/2025 1:02 PM [facility] Anion Gap 7 3 - 11 LAB CHEMISTRY METHOD 02/07/2025 1:02 PM [facility] Glucose 110(H) 70 - 100 mg/dL LAB CHEMISTRY METHOD 02/07/2025 1:02 PM [facility] BUN 17 5 - 25 mg/dL LAB CHEMISTRY METHOD 02/07/2025 1:02 PM [facility] Creatinine 0.97 0.50 - 1.10 mg/dL LAB CHEMISTRY METHOD 02/07/2025 1:02 PM [facility] eGFR 62 >=60 mL/min/1. 73m2 LAB CHEMISTRY METHOD 02/07/2025 1:02 PM [facility] Comment:Calculation based on the Chronic Kidney Disease Epidemiology Collaboration (CKD-EPI) equation refit without adjustment for race. BUN/Creatinine Ratio 17.5 LAB CHEMISTRY METHOD 02/07/2025 1:02 PM [facility] Calcium 9.5 8.5 - 10.5 mg/dL LAB CHEMISTRY METHOD 02/07/2025 1:02 PM [facility] AST (SGOT) 25 10 - 42 unit/L LAB CHEMISTRY METHOD 02/07/2025 1:02 PM [facility] ALT (SGPT) 31 10 - 60 unit/L LAB CHEMISTRY METHOD 02/07/2025 1:02 PM [facility] Alkaline Phosphatase 92 42 - 121 unit/L LAB CHEMISTRY METHOD 02/07/2025 1:02 PM [facility] Total Protein 6.6 6.0 - 8.0 g/dL LAB CHEMISTRY METHOD 02/07/2025 1:02 PM [facility] Albumin 3.8 3.2 - 5.0 g/dL LAB CHEMISTRY METHOD 02/07/2025 1:02 PM [facility] Total Bilirubin 0.4 0.0 - 1.4 mg/dL LAB CHEMISTRY METHOD 02/07/2025 1:02 PM [facility] Blood Venous blood specimen / Unknown Venipuncture / Unknown 02/07/2025 9:38 AM EDT 02/07/2025 9:38 AM EDT us Nataly MCGRAW LAB BLOOD ORDERABLES Final Result [facility] [address] [place] [address], [place] [phone] * CT Chest wo Contrast (01/02/2025 1:41 PM EDT) Anatomical Region Laterality Modality Body Computed Tomogra phy 01/07/2025 9:30 AM EDT Impressions 01/07/2025 9:52 AM EDT 1. Right upper lobectomy. 2. New small juxtapleural nodule in the posterior medial right lower lobe. Other scattered pulmonary nodules are unchanged. -------- FINAL REPORT -------- Dictated By: Rivas Bardales Dictated Date: 01/07/2025 09:30 ET Assigned Physician: Rivas Bardales Reviewed and Electronically Signed By: Rivas Bardales Signed Date: 01/07/2025 09:52 ET Workstation ID: [id number] Transcribed By: Self Edit Transcribed Date: 01/07/2025 09:35 ET Narrative 01/07/2025 9:52 AM EDT PROCEDURE: CT of the chest without intravenous contrast. TECHNIQUE: CT of the chest without intravenous contrast administration. Coronal and sagittal reformats and MIP reconstructions were created. Dose length product: 160 mGy-cm. HISTORY: history of lung cancer. Surveillance. COMPARISON: 01/11/2024. FINDINGS: LUNGS/PLEURA: Right upper lobectomy. New small 2-3 mm juxtapleural nodule in the posteromedial left lower lobe, series 3 image 181. Stable 5 mm left upper lobe nodule, series 3 image 72. There are a few other very small (2 mm or smaller) nodules in both lungs which are unchanged. No pleural effusion or pneumothorax. MEDIASTINUM/FITO: No mediastinal mass or lymphadenopathy. No appreciable hilar lymphadenopathy on limited noncontrast evaluation. VASCULATURE: Normal caliber pulmonary arteries. Extensive atherosclerotic calcifications of the aorta and great vessels. CARDIAC: Normal heart size. Moderate coronary artery calcification. CHEST WALL: No axillary or supraclavicular lymphadenopathy. LIMITED ABDOMEN: Stable small low-attenuation lesion in the left hepatic lobe, probably a cyst but too small for definitive characterization. BONES: Degenerative changes of the spine and shoulders. Procedure Note Rivas Bardales MD - 01/07/2025 PROCEDURE: CT of the chest without intravenous contrast. TECHNIQUE: CT of the chest without intravenous contrast administration.Coronal and sagittal reformats and MIP reconstructions were created. Dose length product: 160 mGy-cm. HISTORY: history of lung cancer. Surveillance. COMPARISON: 01/11/2024. FINDINGS: LUNGS/PLEURA: Right upper lobectomy. New small 2-3 mm juxtapleural nodulein the posteromedial left lower lobe, series 3 image 181. Stable 5 mmleft upper lobe nodule, series 3 image 72. There are a few other verysmall (2 mm or smaller) nodules in both lungs which are unchanged. Nopleural effusion or pneumothorax. MEDIASTINUM/FITO: No mediastinal mass or lymphadenopathy. No appreciablehilar lymphadenopathy on limited noncontrast evaluation. VASCULATURE: Normal caliber pulmonary arteries. Extensive atheroscleroticcalcifications of the aorta and great vessels. CARDIAC: Normal heart size. Moderate coronary artery calcification. CHEST WALL: No axillary or supraclavicular lymphadenopathy. LIMITED ABDOMEN: Stable small low-attenuation lesion in the left hepaticlobe, probably a cyst but too small for definitive characterization. BONES: Degenerative changes of the spine and shoulders. IMPRESSION: 1. Right upper lobectomy. 2. New small juxtapleural nodule in the posterior medial right lowerlobe. Other scattered pulmonary nodules are unchanged. -------- FINAL REPORT -------- Dictated By: Rivas Bardales Dictated Date: 01/07/2025 09:30 ET Assigned Physician: Rivas Bardales Reviewed and Electronically Signed By: Rivas Bardales Signed Date: 01/07/2025 09:52 ET Workstation ID: [id number] Transcribed By: Self Edit Transcribed Date: 01/07/2025 09:35 ET Lazara MCGRAW [facility] [place] [place] CT PROCEDURES Final Resul t * Lipid panel (06/30/2023) LDL/HDL Ratio 3 0 - 4 Triglycerides 108 0 - 150 mg/dL Cholesterol 134 0 - 200 mg/dL HDL 52 >=40 mg/dL LDL Cholesterol 61 0 - 100 mg/dL Blood Venous blood specimen / Unknown us Historical Provider LAB BLOOD ORDERABLES Shobha l [...] Based on the World Health Organization criteria, Brittany Gaines should be classified as having normal bone density. [facility] Department of Internal Medicine recommends using [...] Based on the World Health Organization criteria, Brittany Gaines should beclassified as having normal bone density. [facility] Department of Internal Medicine recommendsusing National [...] PM EDT Narrative 09/09/2021 11:03 AM EDT [facility] Diagnostic Imaging Department [address] [place] [address] Patient: BRITTANY GAINES /Age/Sex: 1950 - 71 - F Unit#: [id number] Location/Status: SPDICATLS/REG CLI Mnemonic/Ordering Site: [facility] Ordering Physician: FORREST ALBARRAN MD CT Lung Screening Low Dose - 09/08/21 - 1541 ADDENDUM Lung RADS category 4A, probably suspicious Addendum Dictated By: TITO VINES MD Addendum Esigned by: TITO VINES MD Dictated: 09/09/2103/23/1057 Signed:09/09/21 110 ORIGINAL REPORT [...] in 3-6 months recommended to document stability. 38717 G9637, G9557, G9551 Dictating Physician: TITO VINES MD Electronically Signed by: TITO VINES MD Dic Date/Time: 09/08/21 184 Sign date/Time: 09/08/211899 Procedure Note Tito Vines MD - 04/21/2022 [facility] Diagnostic Imaging Department [address] [place] [address] Patient: BRITTANY GAINES /Age/Sex: 1950 - 71 - F Unit#: [id number] [facility] Ordering Physician: FORREST ALBARRAN MD CT Lung Screening Low Dose - 09/08/21 - 1541 ADDENDUM Lung RADS category 4A, probably suspicious Addendum Dictated By: TITO VINES MD Addendum Esigned by: TITO VINES MD Dictated: 09/09/2103/23/1057 Signed:09/09/21 1103 ORIGINAL REPORT [...] CT in 3-6 months recommended to documentstability. 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
== END 2025-03-05 16:05 | disposition home or self-care (01) ==
LOC: HO.HOP 15:10
PROVIDERS: PCP Internal Medicine; Visit Provider Clinical Nurse Specialist Psychiatric/Mental Health
DX: F33.41 Major depressive disorder, recurrent, in partial remission (principal); F41.1 Generalized anxiety disorder; F43.21 Adjustment disorder with depressed mood; Z79.899 Other long term (current) drug therapy; R29.6 Repeated falls; R53.1 Weakness; R63.0 Anorexia
CPT/HCPCS: 99215

== ENCOUNTER 2025-04-02 15:21 | Outpatient (AMB) | payer MEDICARE, OTHER, SELFPAY ==
--- OUTSIDE RECORDS SUMMARY | 2022-07-14 15:04 | XMS_ITS | Encounter Summary ---
Author Organization [facility] Address [address] [place] [address] Care Team Providers Care Clay Temperer Name Role Phone Unknown Primary Care Provider [phone] Encounter Details Date Type Department Care Team (Late st Contact Info) Description 07/14/2022 4:04 PM EDT Hospital Encounter [facility] [address] [place] [address] Mack Pleitez MD [address] [place] [phone] Social History Tobacco Use Types Packs/Day Years [...] on filedocumented in this encounter Care Teams Clay Temperer Relationship Specialty Start Date End Date Unknown Unknow Provider Address PCP - General 05/02/22 documented as of this encounter
--- NOTE | 2025-04-02 14:31 | MHC.OFFVISPS ---
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 Instructions: Doctor's Order trazodone 50 mg PO BEDTIME PRN valsartan-hydrochlorothiazide 320-25 mg 1 tab PO DAILY HPI- Psychiatric Chief Complaint: depression HPI Narrative: Pt seen via telehealth for depression symptoms and anxiety; pt is feeling depressed and low energy; we discussed her labs and recommend she increase her fluid intake.She is seeing PCP toomorrow to follow up on lump on her neck. 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 she has been able to cut back on THC use. taking meds as prescribed Past Psychiatric History: 1-[facility] age 22 depression 1- PHP in 2019 referred by [facility], no SI x 2 weeks, 4 months ago depression increased severely, new onset of severe anxiety, started [facility] php and completed 20 days before she really felt much better; depression was very deep, Dr. Langley made a med change there, she reports she had passive SI for weeks before going, no active SI; depression symptoms included not getting out of bed, not eating, no interest, low energy, low motivation; severe anxiety with anxiety attacks Pt says she has always had depression her whole life; had a severe bout of post depression at age 22 and was hospitalized at [facility]; ,no hospitalizations after that; lost her first child 21 yrs ago when her daughter in a MVA; She lost another daughter 2 yrs ago from an accidental overdose on heroin and fentanyl; her daughter Patsy of an opiate overdose on mother's day in 2013; her daughter had been doing well and in recovery and her was a shock; her was having open heart surgery at the same time and her older daughter was going through a divorce; pt reports she felt numb and probably didn't grieve; she lost 18 lbs in 3 months, 25 years on Prozac which worked well up until a few months ago; symptoms when very depression - not getting out of bed, no lunch with friends Subjective Subjective Medication Compliance: Yes Side effects from medications: No Review of Systems Medical Review of Systems: unchanged Mental Status Exam Mental Status Exam Patient Appearance: Well Grooomed and Appropriate Patient Orientation: Person, Place, Time and Situation Level of Consciousness: Awake and Appropriate Patient Behavior: Appropriate, Cooperative and Good Eye Contact Mood Description: Appropriate, Depressed, Anxious and Sad Affect Description: Appropriate, Depressed, Cheerful, Anxious and Sad Patient Cognition Impaired: No Ability to Follow Directions: Good Speech Pattern: Clear and Appropriate Memory Description: Intact Hallucinations: None Delusions: Not Present Thought Process: Intact and Goal Oriented Thought Content: positive for Intact and positive for Goal Oriented Judgement: Good Telehealth Telehealth Telehealth Platform: [employer] Location of provider rendering services: practice address Location of patient: address on file Patient Identification confirmed using: Name, : Yes Telehealth method: video Patient verbally consented to treatment: Yes Patient verbally consented to billing insurance company: Yes Patient informed of any privacy concerns related to visit: Yes Minutes spent on Phone/Video with Pt.: 25 Assessment and Plan Assessment & Plan (1) Major depression, recurrent: Status: Acute Qualifiers: Active/Remission status: in partial remission Qualified Code(s): F33.41 - Major depressive disorder, recurrent, in partial remission Code(s): F33.9 - Major depressive disorder, recurrent, unspecified (2) STEVE (generalized anxiety disorder): Status: Acute Code(s): F41.1 - Generalized anxiety disorder (3) Complicated grief: Status: Acute Code(s): F43.21 - Adjustment disorder with depressed mood (4) Long-term use of high-risk medication: Status: Acute Code(s): Z79.899 - 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 Pt not taking lorazepam daily -take only 1--2 times every 1-2 weeks. for now lexapro and wellbutrin continue as is return in 4 week Medications: Refilled bupropion HCl XL 300 mg PO DAILY 90 tabs 1RF gabapentin stop 300mg capsules 200 mg (2 x 100 mg) PO BID 120 caps 2RF trazodone 50 mg PO BEDTIME PRN 30 tabs 0RF sleep Counseling and coordination of Care Pt. Self Management counseling: Maintenance-social rhythm, Mod caffeine/ETOH intake, Sleep hygiene, Behavior activation, General coping skills and Problem solving Medication management counseling: Effectiveness, Side effects, Dosing range, Duration, Drug interaction and Adherence Diagnosis and Prognosis Counseling: Accuracy of diagnosis, Prognosis over time, Impact of diagnosis on life functions, Impact of family relationship, Problematic behaviors secondary to diagnosis and Adequacy of current interventions Details: I spent 28 minutes reviewing the record, seeing the patient and documenting in the medical record. Counseling provided to the patient/caregiver as outlined below. Addressed patient/caregiver concerns regarding current medication regime including effective adherence. Addressed patient/caregiver concerns regarding diagnosis and prognosis including accuracy of diagnosis, prognosis over time, impact of diagnosis. Addressed patient/caregiver concerns regarding impact of recent stressors. COUNTS INCLUDE 234 BEDS AT THE [facility] Medical History (Updated 03/05/25 @ 15:29 by Julia Parikh APRN) Lung cancer Social History: lives with ; has one adult daughter and two grandchildren. Lost one daughter in 1998 from MVA. lost another daughter from accidental overdose on opiates in 2017. Substance History: none Trauma History: Lost one daughter Clover in 1998 from MVA. lost another daughter Patsy from accidental overdose on opiates in 2017. Coding Level of Care Code Tele Est Pt Level 4 (39617) Diagnoses Recurrent major depressive disorder, in partial remission F33.41 Active/Remission status: in partial remission STEVE (generalized anxiety disorder) F41.1 Complicated grief F43.21 Long-term use of high-risk medication Z79.899 Falling R29.6 Weakness R53.1 Anorexia R63.0
--- OUTSIDE RECORDS SUMMARY | 2025-04-02 17:01 | XMS_ITS | Clinical Summary ---
Author Organization [facility] [address] [facility] Address [address] [place] [address] Phone Care Team Providers Care A/C Technician Name Role Phone Maria L Tabor MD [...] EVERY DAY 90 tablet 1 025 Active levothyroxine (SYNTHROID, LEVOTHROID) 88 mcg tabletIndicat ions:Hypothyr oidism, unspecified TAKE 1 TABLET BY MOUTH EVERY DAY 90 tablet 1 025 Active atorvastatin (LIPITOR) 80 mg tablet TAKE 1 TABLET BY MOUTH EVERY DAY IN THE EVENING 90 tablet 1 025 Active atorvastatin (LIPITOR) 80 mg tablet TAKE 1 TABLET BY MOUTH EVERY DAY IN THE EVENING 90 tablet 1 025 2024 Discontinued meclizine (ANTIVERT) 12.5 mg tablet Take 1 tablet (12.5 mg total) by mouth 3 (three) times a day if needed for dizziness. 90 tablet 1 025 2024 Active Problems Problem Noted Date Diagnosed Date Abnormal ultrasound of neck 03/26/2025 History of lung cancer 01/14/2025 Assessment & [...] scan formed on January 02, 2025 at [facility] which does show a new small [...] shoulder. Hypertension 04/11/2018 Hypothyroidism 04/11/2018 Polymyalgia rheumatica ([facility] V24) 04/11/2018 Overview (04/12/2024): Bothered shoulders mostly Trochanteric bursitis of left hip 04/11/2018 Encounters Date Type Department Care Team Description 04/02/2025 Telephone Adult Medicine - [address] [phone] Krista White MA 03/25/2025 2:04 PM EST - 03/25/2025 11:59 PM EST Hospital Encounter [facility]trasound - [facility] [address] [place] [address] Mandibular swelling Discharge Disposition: Home or Self Care 03/21/2025 10:35 AM EST Lab Draw Station - [place] [address] [place] [address] Mandibular swelling 03/21/2025 10:00 AM EST Office Visit Adult Medicine - [address] [phone] Ángel Terry PA Mandibular swelling (Primary Dx); Hypothyroidism, unspecified type 03/21/2025 Results Follow-Up Adult [facility] [address] [place] [address] Ángel Terry PA 03/19/2025 Telephone Adult [address] [phone] Maria L Tabor MD 03/01/2025 1:00 PM EDT - 03/01/2025 11:59 PM EDT Hospital Encounter Radiology Department - [address] [phone] Dizziness; Falling episodes Discharge Disposition: Home or Self Care 02/07/2025 8:45 AM EDT Office Visit [facility] [address] [place] [address] Nataly Mead PA Dizziness (Primary Dx); Falling episodes; Gait instability; Memory changes; Dizziness and giddiness; Vitamin D deficiency 02/07/2025 Results Follow-Up [address] [phone] Nataly Mead PA 01/14/2025 11:00 AM EDT Office Visit Thoracic Surgery - [place] [address] [facility] [address] [place] [phone] James Ramos PA History of lung cancer (Primary Dx) 01/02/2025 1:27 PM EDT - 01/02/2025 11:59 PM EDT Hospital Encounter [facility] CT Scan [address] [place] [phone] History of lung cancer Discharge Disposition: Home or Self Care from Last 3 Months Immunizations Immunization Administration Dates Next Due Influenza trivalent, 0.5mL (Fluad) 65yo and olde r 02/03/2025,01/10/2019 Pneumococcal conjugate 13 va lent (Prevnar 13, [...] eyes OTHER SURGICAL HISTORY 11/17/2021 Right PROCEDURE: [place] THORACOSCOPY W/LOBECTOMY SINGLE LOBE; COMMENT: RUL Medical History Medical History Date Comments Hypertension DX:Hypertension Mixed hyperlipidemia DX:Mixed hy perlipidemia Hypothyroidism DX:Hypothyroidis m Hiatal hernia DX:Hiatal hernia Family History Medical History Relation Name Comments Throat cancer Brother CAD s/p CABG i ssues start age late 50s, DM II Coronary artery disease Father PR a ge 61 , DM II Coronary artery disease Mother s/p CABG, CHF, DM II Lung cancer Paternal Grandfather Depression Sister Relation Name Status Comments Brother Alive Father Mother Paternal Grandfather Sister Alive Social History Tobacco Use Types Packs/Day Years Used Date Smoking Tobacco: Former Cigarettes 0.8 Q uit: 09/30/2021 Smokeless Tobacco: Never Tobacco [...] Sign Reading Time Taken Comments Blood Pressure 147/94 03/21/2025 9:55 AM EST Pulse 87 03/21/2025 9:55 AM EST Temperature 36.8 C (98.2 F) 03/21/2025 9:55 AM EST Respiratory Rate 16 01/14/2025 10:46 AM EDT Oxygen Saturation 99% 01/14/2025 10:46 AM EDT Inhaled Oxygen Concentration - - Weight 61.7 kg (136 lb) 03/21/2025 9:55 AM EST Height 154.9 cm (5' 1 ) 03/21/2025 9:55 AM EST Body Mass Index 25.7 03/21/2025 9:55 AM EST Plan of Treatment Upcoming Encounters Date Type Department Care Team (Late st Contact Info) Description 04/03/2025 11:30 AM EST Office Visit Adult Medicine [facility] [address] [place] [address] Ángel Terry PA [address] [place] [address] Health Maintenance Due Date Last Done Comments Breast Cancer Screening 1950 Falls Risk Assessment 04/10/2022 Hepatitis C Screening 04/10/2022 Social Influencers of Health Screening 04/10/2022 Medicare Annual Wellness Visit 02/05/2024 02/04/2023 COVID-19 Vaccine ( season) 2024 02/22/2021, 08/16/2020, 07/25/2020 Hypertension/CHF/CAD Annual BMP Blood Test 02/07/2026 02/07/2025, 06/30/2023 RSV Immunization Adult Patients (1 - 1-dose 75+ series) 2027 Cholesterol Screening (Lipid Panel) 06/29/2028 06/30/2023 Colorectal Cancer Screening: Colonoscopy 03/06/2030 03/06/2020 DTaP,Tdap,and Td Vaccines (2 - Td or Tdap) 07/10/2031 07/09/2021 Osteoporosis Screening (Bone Density Screening) 09/10/2031 09/09/2021 Zoster Vaccines Completed 01/09/2018, 09/19/2017 Lung Cancer Screening (Low Dose CT) Discontinued 09/09/2021 Pneumococcal Vaccine: 50+ Years Completed 12/16/2021, 02/22/2018 Influenza Vaccine Completed 02/03/2025, , 01/20/2020, Additional history exists Depression Screening Completed 03/21/2025 HIB Vaccines Aged Out No longer eligi [...] Procedure Name Priority Date/Time Associated Diagnosis Comments US HEAD NECK SOFT TISSUE STAT 03/25/2025 2:35 PM EST Mandibular swelling CBC WITH AUTO DIFFERENTIAL Routine 03/21/2025 10:42 AM EST Mandibular swelling C-REACTIVE PROTEIN Routine 03/21/2025 10 :42 AM EST Mandibular swelling CBC AND DIFFERENTIAL Routine 03/21/2025 10:42 AM EST Mandibular swelling EXTERNAL CLINICAL LAB 03/11/2025 EXTERNAL CLINICAL LAB 03/06/2025 MR BRAIN WO CONTRAST Routine 03/01/2025 2:57 [...] Recently Relevant to Health Maintenance Results * US Head Neck Soft Tissue (03/25/2025 2:35 PM EST) Anatomical Region Laterality Modality Head and Neck Ultrasound 03/25/2025 2:44 PM EST Impressions 03/25/2025 3:08 PM EST Palpable left neck lump corresponds with a 3.3 x 1.8 x 1.7 cm complex cystic lesion in the left submandibular gland. Differential includes an abscess, necrotic lymph node, and cystic neoplasm. Adjacent subcentimeter round solid lesion could represent an abnormal lymph node. -------- FINAL REPORT -------- Dictated By: Aleisha Abreu Dictated Date: 03/25/2025 14:44 ET Assigned Physician: Aleisha Abreu Reviewed and Electronically Signed By: Aleisha Abreu Signed Date: 03/25/2025 15:08 ET Workstation ID: [id number] Transcribed By: Self Edit Transcribed Date: 03/25/2025 14:44 ET Narrative 03/25/2025 3:08 PM EST EXAM: Ultrasound head neck soft tissue HISTORY: Large painful palpable left neck lump. Left mandibular swelling. Possible parotid swelling. COMPARISON: None. FINDINGS: Patient delineated the palpable left neck lump. Sonography shows a corresponding 3.3 x 1.8 x 1.7 cm thick-walled complex cystic lesion with heterogeneous internal echoes and peripheral blood flow on color Doppler which appears to be within the left submandibular gland. Adjacent 0.7 x 0.6 x 0.6 cm rounded hypoechoic lesion with central blood flow on color Doppler which has a branching appearance. No abnormality identified in the bilateral parotid glands or right submandibular gland was no. Procedure Note Aleisha Abreu MD - 03/25/2025 EXAM: Ultrasound head neck soft tissue HISTORY: Large painful palpable left neck lump. Left mandibular swelling.Possible parotid swelling. COMPARISON: None. FINDINGS: Patient delineated the palpable left neck lump. Sonography shows acorresponding 3.3 x 1.8 x 1.7 cm thick-walled complex cystic lesion withheterogeneous internal echoes and peripheral blood flow on color Dopplerwhich appears to be within the left submandibular gland. Adjacent 0.7 x0.6 x 0.6 cm rounded hypoechoic lesion with central blood flow on colorDoppler which has a branching appearance. No abnormality identified in the bilateral parotid glands or rightsubmandibular gland was no. IMPRESSION: Palpable left neck lump corresponds with a 3.3 x 1.8 x 1.7 cm complexcystic lesion in the left submandibular gland. Differential includes anabscess, necrotic lymph node, and cystic neoplasm. Adjacent subcentimeterround solid lesion could represent an abnormal lymph node. -------- FINAL REPORT -------- Dictated By: Aleisha Abreu Dictated Date: 03/25/2025 14:44 ET Assigned Physician: Aleisha Abreu Reviewed and Electronically Signed By: Aleisha Abreu Signed Date: 03/25/2025 15:08 ET Workstation ID: [id number] Transcribed By: Self Edit Transcribed Date: 03/25/2025 14:44 ET Ángel MCGRAW IMG US PROCEDURES Final Result * (ABNORMAL) CBC auto differential (03/21/2025 10:42 AM EST) Only the most recent of2 resultswithin the time period is included. [facility] Signature WBC 11.8(H) 4.8 - 10.8 K/mcL LAB HEMETOLOGY METHOD 03/21/2025 11:55 AM [facility] RBC 4.90(H) 3.80 - 4.80 M/mcL LAB HEMETOLOGY METHOD 03/21/2025 11:55 AM [facility] Hemoglobin 15.3 11.5 - 16.0 g/dL LAB HEMETOLOGY METHOD 03/21/2025 11:55 AM [facility] Hematocrit 45.2 35.0 - 47.0 % LAB HEMETOLOGY METHOD 03/21/2025 11:55 AM [facility] MCV 92.8 79.0 - 98.0 FL LAB HEMETOLOGY METHOD 03/21/2025 11:55 AM [facility] MCH 31.4 27.0 - 32.0 pcg LAB HEMETOLOGY METHOD 03/21/2025 11:55 AM [facility] MCHC 33.8 32.0 - 37.0 g/dL LAB HEMETOLOGY METHOD 03/21/2025 11:55 AM [facility] RDW 12.9 11.0 - 15.0 % LAB HEMETOLOGY METHOD 03/21/2025 11:55 AM [facility] Platelets 362 130 - 400 K/mcL LAB HEMETOLOGY METHOD 03/21/2025 11:55 AM [facility] MPV 9.3 7.0 - 11.0 FL LAB HEMETOLOGY METHOD 03/21/2025 11:55 AM [facility] NRBC 0.0 <1.0 % LAB HEMETOLOGY METHOD 03/21/2025 11:55 AM [facility] NRBC Absolute 0.00 <0.10 K/mcL LAB HEMETOLOGY METHOD 03/21/2025 11:55 AM [facility] Neutrophils Relative 79.5 % LAB HEMETOLOGY METHOD 03/21/2025 11:55 AM [facility] Lymphocytes Relative 13.4 % LAB HEMETOLOGY METHOD 03/21/2025 11:55 AM [facility] Monocytes Relative 5.5 % LAB HEMETOLOGY METHOD 03/21/2025 11:55 AM [facility] Eosinophils Relative 0.6 % LAB HEMETOLOGY METHOD 03/21/2025 11:55 AM [facility] Basophils Relative 0.5 % LAB HEMETOLOGY METHOD 03/21/2025 11:55 AM [facility] Immature Granulocytes Relative 0.5 % LAB HEMETOLOGY METHOD 03/21/2025 11:55 AM [facility] Neutrophils Absolute 9.37(H) 1.50 - 7.00 K/mcL LAB HEMETOLOGY METHOD 03/21/2025 11:55 AM [facility] Lymphocytes Absolute 1.58 1.00 - 5.00 K/mcL LAB HEMETOLOGY METHOD 03/21/2025 11:55 AM [facility] Monocytes Absolute 0.65 0.20 - 1.00 K/mcL LAB HEMETOLOGY METHOD 03/21/2025 11:55 AM [facility] Eosinophils Absolute 0.07 0.00 - 0.50 K/mcL LAB HEMETOLOGY METHOD 03/21/2025 11:55 AM [facility] Basophils Absolute 0.06 0.00 - 0.20 K/mcL LAB HEMETOLOGY METHOD 03/21/2025 11:55 AM [facility] Immature Granulocytes Absolute 0.06(H) 0.00 - 0.03 K/mcL LAB HEMETOLOGY METHOD 03/21/2025 11:55 AM [facility] Blood Venous blood specimen / Unknown Venipuncture / Unknown 03/21/2025 10:42 AM EST 03/21/2025 10:42 AM EST Ángel Mara DC LAB BLOOD ORDERABLES Final Res ult Performing Organization Address [facility]/ZIP Co de Phone Number [facility] [address] [place] [address], * (ABNORMAL) C-reactive protein (03/21/2025 10:42 AM EST) C-Reactive Protein 0.94(H) <=0.50 mg/dL 03/21/2025 1:38 PM EST [facility] Blood Venous blood specimen / Unknown Venipuncture / Unknown 03/21/2025 10:42 AM EST 03/21/2025 10:42 AM EST Ángel Mara DC LAB BLOOD ORDERABLES Final Res ult Performing Organization Address [facility] Co de Phone Number [facility] [address] [place] [address], * External clinical lab (03/11/2025) Only the most recent of2 resultswithin the time period is included. Provider [facility] LAB BLOOD ORDERABLES Fin al Result * MR Brain wo Contrast (03/01/2025 2:57 [...] Signed Date: 03/01/2025 15:26 ET Workstation ID: [id number] Transcribed By: Self Edit Transcribed Date: 03/01/2025 [...] Signed Date: 03/01/2025 15:26 ET Workstation ID: [id number] Transcribed By: Self Edit Transcribed Date: 03/01/2025 15:19 ET Nataly MCGRAW IMG MRI PROCEDURES Final R esult * Treponema pallidum antibody with reflex to RPR and particle agglutination (02/07/2025 9:38 AM EDT) [facility] T. Pallidum Antibodies Negative Negative LAB CHEMISTRY METHOD 02/07/2025 2:15 PM EDT [facility] Blood Venous blood specimen / Unknown Venipuncture / Unknown 02/07/2025 9:38 AM EDT 02/07/2025 9:38 AM EDT Nataly MCGRAW LAB BLOOD ORDERABLES Final Result Performing Organization Address City/[facility]/ZIP Co de Phone Number [facility] [address] [place] [address], [place] [phone] * Thyroid stimulating hormone with reflex to free t4 and free t3 (02/07/2025 9:38 AM EDT) [facility] TSH 0.57 0.40 - 4.00 mcIU/mL LAB CHEMISTRY METHOD 02/07/2025 2:03 PM EDT [facility] Blood Venous blood specimen / Unknown Venipuncture / Unknown 02/07/2025 9:38 AM EDT 02/07/2025 9:38 AM EDT Nataly MCGRAW LAB BLOOD ORDERABLES Final Result [facility] [address] [place] [address], [place] [phone] * Vitamin D 25 hydroxy (02/07/2025 9:38 AM EDT) [facility] Vit D, 25-Hydroxy 41.7 30.0 - 80.0 ng/mL LAB CHEMISTRY METHOD 02/07/2025 2:03 PM EDT [facility] Blood Venous blood specimen / Unknown Venipuncture / Unknown 02/07/2025 9:38 AM EDT 02/07/2025 9:38 AM EDT Nataly MCGRAW LAB BLOOD ORDERABLES Final Result Performing Organization Address City/[facility]/ZIP Co de Phone Number [facility] [address] [place] [address], [place] [phone] * Sedimentation rate (02/07/2025 9:38 AM EDT) [facility] Sed Rate 7 0 - 30 mm/hr LAB HEMETOLOGY METHOD 02/07/2025 12:04 PM EDT [facility] Blood Venous blood specimen / Unknown Venipuncture / Unknown 02/07/2025 9:38 AM EDT 02/07/2025 9:38 AM EDT Nataly MCGRAW LAB BLOOD ORDERABLES Final Result [facility] [address] [place] [address], [place] [phone] * (ABNORMAL) Folate (02/07/2025 9:38 AM EDT) [facility] Folate >20.0(H) 2.8 - 17.0 ng/ml LAB CHEMISTRY METHOD 02/07/2025 1:02 PM EDT [facility] Blood Venous blood specimen / Unknown Venipuncture / Unknown 02/07/2025 9:38 AM EDT 02/07/2025 9:38 AM EDT Nataly MCGRAW LAB BLOOD ORDERABLES Final Result Performing Organization Address [facility]/ZIP Co de Phone Number [facility] [address] [place] [address], [place] [phone] * (ABNORMAL) Vitamin B12 (02/07/2025 9:38 AM EDT) [facility] Vitamin B-12 1,212(H) 250 - 900 pcg/mL LAB CHEMISTRY METHOD 02/07/2025 1:02 PM EDT [facility] Blood Venous blood specimen / Unknown Venipuncture / Unknown 02/07/2025 9:38 AM EDT 02/07/2025 9:38 AM EDT Nataly MCGRAW LAB BLOOD ORDERABLES Final Result Performing Organization Address [facility] Co de Phone Number [facility] [address] [place] [address], [place] [phone] * (ABNORMAL) Comprehensive metabolic panel (02/07/2025 9:38 AM EDT) [facility] Sodium 141 133 - 145 mmol/L LAB CHEMISTRY METHOD 02/07/2025 1:02 PM EDT [facility] Potassium 3.8 3.5 - 5.5 mmol/L LAB CHEMISTRY METHOD 02/07/2025 1:02 PM [facility] Chloride 106 96 - 110 mmol/L LAB CHEMISTRY METHOD 02/07[facility]2025 [facility] CO2 28 21 - 32 mmol/L LAB CHEMISTRY METHOD 02/07/2025 1:02 PM [facility] Anion Gap 7 3 - 11 LAB CHEMISTRY METHOD 02/07/2025 1:02 PM [facility] Glucose 110(H) 70 - 100 mg/dL LAB CHEMISTRY METHOD 02/07/2025 1:02 PM [facility] BUN 17 5 - 25 mg/dL LAB CHEMISTRY METHOD 02/07/2025 1:02 PM [facility] Creatinine 0.97 0.50 - 1.10 mg/dL LAB CHEMISTRY METHOD 02/07/2025 1:02 PM [facility] eGFR 62 >=60 mL/min/1. 73m2 LAB CHEMISTRY METHOD 02/07/2025 1:02 PM [facility] Comment:Calculation based on the Chronic Kidney Disease Epidemiology Collaboration (CKD-EPI) equation refit without adjustment for race. BUN/Creatinine Ratio 17.5 LAB CHEMISTRY METHOD 02/07/2025 1:02 PM [facility] Calcium 9.5 8.5 - 10.5 mg/dL LAB CHEMISTRY METHOD 02/07/2025 1:02 PM [facility] AST (SGOT) 25 10 - 42 unit/L LAB CHEMISTRY METHOD 02/07/2025 1:02 PM [facility] ALT (SGPT) 31 10 - 60 unit/L LAB CHEMISTRY METHOD 02/07/2025 1:02 PM [facility] Alkaline Phosphatase 92 42 - 121 unit/L LAB CHEMISTRY METHOD 02/07/2025 1:02 PM [facility] Total Protein 6.6 6.0 - 8.0 g/dL LAB CHEMISTRY METHOD 02/07/2025 1:02 PM [facility] Albumin 3.8 3.2 - 5.0 g/dL LAB CHEMISTRY METHOD 02/07/2025 1:02 PM [facility] Total Bilirubin 0.4 0.0 - 1.4 mg/dL LAB CHEMISTRY METHOD 02/07/2025 1:02 PM [facility] Blood Venous blood specimen / Unknown Venipuncture / Unknown 02/07/2025 9:38 AM EDT 02/07/2025 9:38 AM EDT us Nataly MCGRAW LAB BLOOD ORDERABLES Final Result [facility]) [facility] [address] [place] [facility] [place] [address], [place] [phone] * CT Chest wo Contrast (01/02/2025 1:41 [...] Signed Date: 01/07/2025 09:52 ET Workstation ID: [id number] Transcribed By: Self Edit Transcribed Date: 01/07/2025 [...] Signed Date: 01/07/2025 09:52 ET Workstation ID: [id number] Transcribed By: Self Edit Transcribed Date: 01/07/2025 09:35 ET Lazara MCGRAW IM CT PROCEDURES Final Resul t * Lipid [...] classified as having normal bone density. [facility] Department of Internal Medicine recommends using [...] beclassified as having normal bone density. [facility] Department of Internal Medicine recommendsusing National [...] PM EDT Narrative 09/09/2021 11:[address] [facility] Diagnostic Imaging Department [address] [place] [address] Patient: BRITTANY GAINES /Age/Sex: 1950 - 71 - F Unit#: [id number] Location/Status: SPDICATLS/REG CLI Mnemonic/Ordering Site: [facility] Ordering Physician: FORREST ALBARRAN MD CT Lung [...] in 3-6 months recommended to document stability. 82014 G9637, G9557, G9551 Dictating Physician: TITO VINES MD Electronically Signed by: TITO VNIES MD Dic Date/Time: 09/08/211848 Sign date/Time: 09/08/211899 Procedure Note Tito Vines MD - 04/21/2022 [facility] Diagnostic Imaging Department [address] [place] [address] Patient: BRITTANY GAINES /Age/Sex: 1950 - 71 - F Unit#: [id number] [facility]/Ordering Site: [facility] Ordering Physician: FORREST ALBARRAN MD CT Lung [...] CT in 3-6 months recommended to documentstability. 74108 G9637, G9557, G9551 Dictating Physician: TITO VINES MD Electronically Signed by: TITO VINES MD Dic Date/Time: 09/08/21 1849 Sign date/Time: 09/08/21 1900 Forrest Albarran MD [facility] PROCEDURES Final Result * Colonoscopy (03/06/2020) Colonoscopy no interpretation , abstracted Anatomical Region Laterality Modality Other Eugene Carrero MD HEALTH MAINTENANCE Final Result from Last 3 Months or Most Recently Relevant to Health Maintenance Insurance MEDICARE [facility] Advance Directives Documents on File Type Date Recorded Patient Wax Engraver Expl anation Health Care Decision (hx) 11/19/2021 AD BLOOM DIRECTIVE Health Care Decision (hx) 11/19/2021 AD BLOOM DIRECTIVE Health Care Decision (hx) 11/19/2021 AD BLOOM DIRECTIVE Health Care Decision (hx) 11/19/2021 AD BLOOM DIRECTIVE Health Care Decision (hx) 11/19/2021 AD BLOOM DIRECTIVE Health Care Decision (hx) 11/19/2021 AD BLOOM DIRECTIVE Health Care Decision (hx) 11/19/2021 AD BLOOM DIRECTIVE Care Teams A/C Technician Relationship Specialty Start Date End Date Maria L Tabor MD [address] [place] [id number] PCP - General Internal Medicine 01/02/25
--- OUTSIDE RECORDS SUMMARY | 2025-04-02 17:01 | XMS_ITS | Clinical Summary ---
Author Organization [facility] Address [address] [place] [address] Care Team Providers Care Project Management Intern Name Role Phone Unknown Primary Care Provider [...] MEDICARE PART A & B Care Teams Project Management Intern Relationship Specialty Start Date End Date Unknown Unknow Provider Address PCP - General 05/02/22
--- OUTSIDE RECORDS SUMMARY | 2025-04-02 17:01 | XMS_ITS | Encounter Summary ---
Author Organization [facility] Address [address] [place] [address] Care Team Providers Care Manager Investment Banking Name Role Phone Maria L Tabor MD Primary Care Prov ider Encounter Details Date Type Department Care Team (Late Contact Info) Description 02/07/2025 Results Follow-Up [facility] [address] [place] [phone] Nataly Mead PA [address] [place] [address] Social History Tobacco Use Types Packs/Day Years Used Date Smoking Tobacco: Former Cigarettes 0.8 Q uit: 09/30/2021 Smokeless Tobacco: Never Alcohol [...] as of this encounter Plan of Treatment Upcoming Encounters Date Type Department Care Team (Late Contact Info) Description 04/03/2025 11:30 AM EST Office Visit Adult [facility] [address] [place] [phone] Ángel Terry PA [address] [place], [place] documented as of this encounter Visit Diagnoses Not on filedocumented in this encounter Care Teams Manager Investment Banking Relationship Specialty Start Date End Date Maria L Tabor MD [address] [place] [phone] PCP - General Internal Medicine 01/02/25 documented as of this encounter
--- OUTSIDE RECORDS SUMMARY | 2025-04-02 17:01 | XMS_ITS | Encounter Summary ---
Author Organization [facility] Address [address] [place] [address] Care Team Providers Care Punch Press Setter Name Role Phone Maria L Tabor MD Primary Care Prov ider Encounter Details Date Type Department Care Team (Late st Contact Info) Description 04/02/2025 Telephone Adult [facility] [address] [place] [id number] Krista White MA Social History Tobacco Use Types Packs/Day Years [...] as of this encounter Progress Notes * Krista White MA - 04/02/2025 1:57 PM EST Spoke to Nidhi in referrals and he will get working on it now. * Krista White MA - 04/02/2025 1:57 PM EST ----- Message from LUCIEN Cruz sent at 03/26/2025 5:41 PM EST ----- Please check with referrals that they processed my urgent referral with ENT. This needs to happen quickly due to the concerning findings on ultrasound. Thank you documented in this encounter Plan of Treatment Upcoming Encounters Date Type Department Care Team (Late st Contact Info) Description 04/03/2025 11:30 AM EST Office Visit Adult Medicine - [facility] [address] [place] [phone] Ángel Terry PA [address] [place] [address] documented as of this encounter Visit Diagnoses Not on filedocumented in this encounter Additional Health Concerns Assessment Noted Time PHQ-9 Depression Total Score: 8 03/21/20 9:55 AM EST documented as of this encounter Care Teams Punch Press Setter Relationship Specialty Start Date End Date Maria L Tabor MD [address] [place] [address] PCP - General Internal Medicine 01/02/25 documented as of this encounter
== END 2025-04-02 15:22 | disposition home or self-care (01) ==
LOC: HO.HOP 15:21
PROVIDERS: PCP Internal Medicine; Visit Provider Clinical Nurse Specialist Psychiatric/Mental Health
DX: F33.41 Major depressive disorder, recurrent, in partial remission (principal); F41.1 Generalized anxiety disorder; F43.21 Adjustment disorder with depressed mood; Z79.899 Other long term (current) drug therapy; R29.6 Repeated falls; R53.1 Weakness; R63.0 Anorexia
CPT/HCPCS: 99214

== ENCOUNTER 2025-04-29 13:31 | Outpatient (AMB) | payer MEDICARE, OTHER, SELFPAY ==
--- OUTSIDE RECORDS SUMMARY | 2022-07-14 15:04 | XMS_ITS | Encounter Summary ---
Author Organization [facility] Address [address] [place] [address] Care Team Providers Care Net Developer Consultant Name Role Phone Unknown Primary Care Provider [phone] Encounter Details Date Type Department Care Team (Late st Contact Info) Description 07/14/2022 4:04 PM EDT Hospital Encounter [facility] [address] [place] [address] Mack Pletiez MD [address] [place] [phone] Social History Tobacco Use Types Packs/Day Years [...] on filedocumented in this encounter Care Teams Net Developer Consultant Relationship Specialty Start Date End Date Unknown Unknow Provider Address PCP - General 05/02/22 documented as of this encounter
--- NOTE | 2025-04-29 13:42 | A.OFFPSYCH_ITS ---
Intake Intake Visit Reasons: depression Forensic Anthropologist Required: No Allergies No Known Allergies Allergy (Verified 07/15/23 15:16) Medication List - Last Reconciled 04/29/25 by Julia Parikh APRN atorvastatin 80 mg PO QPM bupropion HCl XL 300 mg PO DAILY escitalopram oxalate 20 mg PO DAILY gabapentin 200 mg (2 x 100 mg) PO BID levothyroxine 88 mcg PO DAILY lorazepam 0.5 mg PO BID PRN Held on 03/07/25. Instructions: Doctor's Order trazodone 50 mg PO BEDTIME valsartan-hydrochlorothiazide 320-25 mg 1 tab PO DAILY HPI- Psychiatric Chief Complaint: depression HPI Narrative: Pt seen in the office for follow up re: depression, anxiety and complicated grief. She reports she is feeling depressed. she is anxious frequently. Her PHQ9=11 and her GAD7= 14. Her sister in law last month suddenly from brain tumor. 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 This has been very stressful for patient; Pt recently had a lump o her neck and had it scanned and biopsied. for weeks she thought she had metastasized cancer; it sock turner the biopsy was non-cancerous and the cysts disappeared after the biopsy. Pts has been very supportive. Pt is worried because her recall has been poor and she has been falling especially when walking out in the [place] with her dog. Fortunately she has only sustained scratches and bruises. Labs done in March were essentially normal. Discussed lowering her meds due to possible side effects. Reviewed MMSE in office in March 30. recalled 2 out of 5 words after 5 minutes. Discussed TMS for depression- she will think about it. Past Psychiatric History: 1-[facility] age 22 depression 1- PHP in 2019 referred by [facility], no SI x 2 weeks, 4 months ago depression increased severely, new onset of severe anxiety, started [facility] php and completed 20 days before she really felt much better; depression was very deep, Dr. Langley made a med change there, she reports she had passive SI for weeks before going, no active SI; depression symptoms included not getting out of bed, not eating, no interest, low energy, low motivation; severe anxiety with anxiety attacks Pt says she has always had depression her whole life; had a severe bout of post depression at age 22 and was hospitalized at [facility]; ,no hospitalizations after that; lost her first child 21 yrs ago when her daughter in a MVA; She lost another daughter 2 yrs ago from an accidental overdose on heroin and fentanyl; her daughter Patsy of an opiate overdose on mother's day in 2013; her daughter had been doing well and in recovery and her was a shock; her was having open heart surgery at the same time and her older daughter was going through a divorce; pt reports she felt numb and probably didn't grieve; she lost 18 lbs in 3 months, 25 years on Prozac which worked well up until a few months ago; symptoms when very depression - not getting out of bed, no lunch with friends Subjective Subjective Medication Compliance: Yes Side effects from medications: No Review of Systems Medical Review of Systems: unchanged Mental Status Exam Mental Status Exam Patient Appearance: Well Grooomed and Appropriate Patient Orientation: Person, Place, Time and Situation Level of Consciousness: Awake and Appropriate Patient Behavior: Appropriate, Cooperative and Good Eye Contact Mood Description: Appropriate, Depressed, Anxious and Flat Affect Description: Withdrawn, Appropriate, Depressed, Anxious and Flat Patient Cognition Impaired: No Ability to Follow Directions: Good Speech Pattern: Clear and Appropriate Memory Description: Recent Impaired Hallucinations: None Delusions: Not Present Thought Process: Intact and Goal Oriented Thought Content: positive for Intact and positive for Goal Oriented Judgement: Good Assessment and Plan Assessment & Plan (1) Major depression, recurrent: Status: Acute Qualifiers: Active/Remission status: currently active Major depression episode severity: moderate Qualified Code(s): F33.1 - Major depressive disorder, recurrent, moderate Code(s): F33.9 - Major depressive disorder, recurrent, unspecified (2) STEVE (generalized anxiety disorder): Status: Acute Code(s): F41.1 - Generalized anxiety disorder (3) Complicated grief: Status: Acute Code(s): F43.21 - Adjustment disorder with depressed mood (4) Falling: Status: Acute Code(s): R29.6 - Repeated falls (5) Weakness: Status: Acute Code(s): R53.1 - Weakness Plan lexapro 20mg daily wellbutrin xl 150mg am only stop wellbutrin xl 300mg gabapentin 200mg bid with plan to taper ativan 0.25mg bid with plan to taper trazodone 50mg at bedtime ( consider reducing in future) consider TMS for depression neurology referral Medications: New bupropion HCl XL (Wellbutrin XL) 150 mg PO QAM 30 tabs 2RF Discontinued bupropion HCl XL Discontinued Reason: Doctor's Order 300 mg PO DAILY 90 tabs 1RF Orders: Referrals Neurology Referral R29.6 - Repeated falls, R53.1 - Weakness Counseling and coordination of Care Pt. Self Management counseling: Maintenance-social rhythm, Mod caffeine/ETOH intake, Nutrition education and improvement, Sleep hygiene and General coping skills Medication management counseling: Effectiveness, Side effects, Dosing range, Duration, Drug interaction and Adherence Diagnosis and Prognosis Counseling: Accuracy of diagnosis, Impact of diagnosis on life functions and Adequacy of current interventions Details: I spent 45 minutes reviewing the record, seeing the patient and documenting in the medical record. Counseling provided to the patient/caregiver as outlined below. Addressed patient/caregiver concerns regarding current medication regime including effective adherence. Addressed patient/caregiver concerns regarding diagnosis and prognosis including accuracy of diagnosis, prognosis over time, impact of diagnosis. Addressed patient/caregiver concerns regarding impact of recent stressors. [facility] Medical History (Updated 04/29/25 @ 14:35 by Julia Parikh APRN) Lung cancer Social History: lives with ; has one adult daughter and two grandchildren. Lost one daughter in 1998 from MVA. lost another daughter from accidental overdose on opiates in 2017. Substance History: none Trauma History: Lost one daughter Clover in 1998 from MVA. lost another daughter Patsy from accidental overdose on opiates in 2017. Coding Level of Care Code Est Pt Level 5 (70571) Diagnoses Moderate episode of recurrent major depressive disorder F33.1 Active/Remission status: currently active Major depression episode severity: moderate STEVE (generalized anxiety disorder) F41.1 Complicated grief F43.21 Falling R29.6 Weakness R53.1
--- OUTSIDE RECORDS SUMMARY | 2025-04-29 15:38 | XMS_ITS | Encounter Summary ---
Author Organization [facility] Address [address] [place] [address] Care Team Providers Care Health Education Teacher Name Role Phone Maria L Tabor MD Primary Care Prov ider Encounter Details Date Type Department Care Team (Late st Contact Info) Description 04/04/2025 Results Follow-Up Adult [facility] [address] [place] [phone] Antione Burton, RN Social History Tobacco Use Types Packs/Day Years Used Date Smoking Tobacco: Former Cigarettes 0.8 Q uit: 09/30/2021 Smokeless Tobacco: Never Alcohol Use Standard Drinks/Week Comments Yes 0 (1 standard drink = 0.6 oz pur e alcohol) Housing Instability Answer Date Recorde d Are you worried that in the next 2 months you may not have stable housing? No 04/03/2025 Food Access & Nutrition Answer Date Rec orded Do you have access to a vari ety of food including fruits and vegetables? Yes 04/03/2025 Access to Healthcare Answer Date Record ed Within the last 3 months, ho w many times did you visit the emergency department for your medical care? 1 04/03/2025 Health Literacy Answer Date Recorded How often do you need to hav e someone help you when you read instructions, pamphlets, or other written material from your doctor or pharmacy? Never 04/03/2025 Caregiver: How often do you need to have someone help you when you read instructions, pamphlets, or other written material from your doctor or pharmacy? Not on file 04/03/2025 Financial Risk Answer Date Recorded How hard is it for you to pa y for the very basics like food, housing, medical care, and air conditioning / heating? Not very hard 04/03/2025 Transportation Answer Date Recorded Has the lack of transportati on kept you from meetings, work, or from getting things needed for daily living? No Has the lack of transportati on kept you from medical appointments or from getting medications? No 04/03/2025 Social Isolation Answer Date Recorded How often do you feel lonely or isolated from th ose around you? Never 04/03/2025 Food Risk Answer Date Recorded Within the past 12 months we worried whether our food would run out before we got money to buy more. Never true 04/03/2025 Within the past 12 months th e food we bought just didn't last and we didn't have money to get more. Never true 04/03/2025 Dependent Care Answer Date Recorded Do you need help finding or paying for care for your loved ones. For example, early childhood coordinator or elderly care for an older adult? No 04/03/2025 Education Answer Date Recorded Do you think completing more education or training, like finishing a GED, going to college, or learning a trade, would be helpful for you? No 04/03/2025 Employment and Income Answer Date Recor ded During the last four weeks, have you been actively looking for work? No 04/03/2025 Living Situation Answer Date Recorded What is your living situation? Unrecognized valu e 04/03/2025 Comments No Sex and Gender Information Value [...] Assessment Noted Time PHQ-9 Depression Total Score: 4 04/03/20 11:28 AM EST A fall risk assessment has been complete d for the patient 04/03/2025 11:31 AM EST documented as of this encounter Care Teams Health Education Teacher Relationship Specialty Start Date End Date Maria L Tabor MD [address] [place] [address] [facility] [place] [address] PCP - General Internal Medicine 01/02/25 documented as of this encounter
--- OUTSIDE RECORDS SUMMARY | 2025-04-29 15:38 | XMS_ITS | Clinical Summary ---
Author Organization [facility] [address] [facility] lding Address [address] [place] [address] Phone Care Team Providers Care Eligibility And Occupancy Interviewer Name Role Phone Maria L Tabor MD [...] MOUTH EVERY DAY 90 tablet 1 12/19/19 Active levothyroxine (SYNTHROID, LEVOTHROID) 88 mcg tabletIndicati ons:Hypothyroi dism, unspecified TAKE 1 TABLET BY MOUTH EVERY DAY 90 tablet 1 12/19/19 Active atorvastatin (LIPITOR) 80 mg tablet TAKE 1 TABLET BY MOUTH EVERY DAY IN THE EVENING 90 tablet 1 03/11/20 Active Active Problems Problem Noted Date Diagnosed [...] scan formed on January 02, 2025 at [facility] which does show a new small [...] Encounters Date Type Department Care Team Description 04/22/2025 3:15 PM EST Office Visit Adult [facility] [address] [place] [phone] Ángel Terry PA Abnormal ultrasound of neck (Primary Dx); Other depression; Memory changes; Primary hypertension 04/15/2025 1:16 PM EST - 04/15/2025 11:59 PM EST Hospital Encounter [facility] Ultrasound [address] [place] [phone] Neoplasm of submandibular gland Discharge Disposition: Home or Self Care 04/12/2025 8:49 AM EST - 04/12/2025 11:59 PM EST Hospital Encounter [facility] CT Scan [address] [place] [phone] Neoplasm of unspecified behavior of digestive system Discharge Disposition: Home or Self Care 04/10/2025 Telephone Adult [facility] [address] [place] [phone] Maria L Lauren MD 04/04/2025 Results Follow-Up Adult [facility] [address] [place] [phone] Antione Estrada RN 04/03/2025 12:35 PM EST Lab Draw Station - [address] Prediabetes; Need for hepatitis C screening test; Submandibular gland mass; Abnormal finding of blood chemistry, unspecified 04/03/2025 11:30 AM EST Office Visit Adult [address] [phone] Ángel Terry PA Medicare annual wellness visit, subsequent (Primary Dx); Other depression; Pure hypercholesterolemia; Gastroesophageal reflux disease without esophagitis; History of lung cancer; Hypothyroidism, unspecified type; Hiatal hernia; Prediabetes; Screening mammogram for breast cancer; Need for hepatitis C screening test; Submandibular gland mass; Abnormal finding of blood chemistry, unspecified 04/02/2025 Telephone Adult [address] [phone] Krista White MA 03/25/2025 2:04 PM EST - 03/25/2025 11:59 PM EST Hospital Encounter Ultrasound - [facility] [address] [place] [phone] Mandibular swelling Discharge Disposition: Home or Self Care 03/21/2025 10:35 AM EST Lab Draw Station - [address] Mandibular swelling 03/21/2025 10:00 AM EST Office Visit Adult [address] [phone] Ángel Terry PA Mandibular swelling (Primary Dx); Hypothyroidism, unspecified type 03/21/2025 Results Follow-Up Adult [address] [phone] Ángel Terry PA 03/19/2025 Telephone Adult [address] [phone] Maria L Lauren MD 03/01/2025 1:00 PM EDT - 03/01/2025 11:59 PM EDT Hospital Encounter Radiology Department - [address] [place] [phone] Dizziness; Falling episodes Discharge Disposition: Home or Self Care 02/07/2025 8:45 AM EDT Office Visit [facility] [place] [address] [place] [phone] Nataly Mead PA Dizziness (Primary Dx); Falling episodes; Gait instability; Memory changes; Dizziness and giddiness; Vitamin D deficiency 02/07/2025 Results Follow-Up [facility] [address] [place] [phone] Nataly Mead PA from Last 3 Months Immunizations Immunization Administration Dates Next Due Influenza Quadravalent, 0.5ml (Fluad) 65yo and o lder 02/17/2021 Influenza Quadravalent, 0.5m l (Fluzone High-dose) 65yo and older 01/20/2020 Influenza trivalent, 0.5mL (Fluad) 65yo and olde r 02/03/2025,01/10/2019 Influenza trivalent, 0.5mL ( Fluzone High-dose) 65yo and older 01/10/2019,02/22/2018 Pneumococcal conjugate 13 va lent (Prevnar 13, [...] eyes OTHER SURGICAL HISTORY 11/17/2021 Right PROCEDURE: NM THORACOSCOPY W/LOBECTOMY SINGLE LOBE; COMMENT: RUL Medical History Medical History Date Comments Hypertension DX:Hypertension Mixed hyperlipidemia DX:Mixed hy perlipidemia Hypothyroidism DX:Hypothyroidis m Hiatal hernia DX:Hiatal hernia Family History Medical History Relation Name Comments Throat cancer Brother CAD s/p CABG i ssues start age late 50s, DM II Coronary artery disease Father MD a ge 61 , DM II Coronary [...] care for your loved ones. For example, child neurologist or elderly care for an older adult? [...] not to disclose 2024 9:00 AM EDT Last Filed Vital Signs Vital Sign Reading Time Taken Comments Blood Pressure 141/87 04/22/2025 2:54 PM EST Pulse 76 04/22/2025 2:54 PM EST Temperature 36.1 C (96.9 F) 04/22/2025 2:54 PM EST Respiratory Rate 16 01/14/2025 10:46 AM EDT Oxygen Saturation 99% 01/14/2025 10:46 AM EDT Inhaled Oxygen Concentration - - Weight 62.6 kg (138 lb) 04/22/2025 2:54 PM EST Height 157.5 cm (5' 2 ) 04/22/2025 2:54 PM EST Body Mass Index 25.24 04/22/2025 2:54 PM EST Plan of Treatment Health Maintenance Due Date Last Done Comments Breast Cancer Screening 1950 Drug Screen 1950 Non-Opioid Controlled Substance Agreement 1950 COVID-19 Vaccine ( season) 2024 02/22/2021, 08/16/2020, 07/25/2020 Hypertension/CHF/CAD Annual BMP Blood Test 02/07/2026 02/07/2025, 06/30/2023 Falls Risk Assessment 04/03/2026 04/03/2025, 025 Medicare Annual Wellness Visit 04/03/2026 04/03/2025 Social Influencers of Health Screening 04/03/2026 04/03/2025 RSV Immunization Adult Patients (1 - 1-dose [...] 01/20/2020, Additional history exists Depression Screening Completed 04/03/2025 Hepatitis C Screening Completed 04/03/2025 HIB Vaccines Aged Out No longer eligi [...] Name Priority Date/Time Associated Diagnosis Comments US GUIDED FINE NDL ASP 1ST LESION Routine 04/15/2025 2:31 PM EST Neoplasm of submandibular gland TISSUE EXAM Routine 04/15/2025 1:47 PM EST Neoplasm of submandibular gland FINE NEEDLE ASPIRATION Routine 04/15/2025 1:45 PM EST Neoplasm of submandibular gland CT NECK SOFT TISSUE W CONTRAST STAT 04/12/2025 9:22 AM EST Neoplasm of unspecified behavior of digestive system CBC WITH AUTO DIFFERENTIAL Routine 04/03/2025 12:34 PM EST Submandibular gland mass Abnormal finding of blood chemistry, unspecified C-REACTIVE PROTEIN Routine 04/03/2025 12 :34 PM EST Submandibular gland mass CBC AND DIFFERENTIAL Routine 04/03/2025 12:34 PM EST Submandibular gland mass Abnormal finding of blood chemistry, unspecified HEPATITIS C ANTIBODY Routine 04/03/2025 12:34 PM EST Need for hepatitis C screening test HEMOGLOBIN A1C Routine 04/03/2025 12:34 PM EST Prediabetes US HEAD NECK SOFT TISSUE STAT 03/25/2025 [...] 02/07/2025 9:38 AM EDT Dizziness Memory changes LIPID PANEL Routine 06/30/2023 DXA BONE DENSITY STUDY 1+ SITS AXIAL SKEL Routine 09/09/2021 1:46 PM EDT Encounter for screening for osteoporosis CT LUNG SCREENING LOW DOSE Routine 09/09/2021 11:03 AM EDT Personal history of nicotine dependence HM COLONOSCOPY Routine 03/06/2020 from Last 3 Months or Most Recently Relevant to Health Maintenance Results * US Guided Fine Ndl Asp 1st Lesion (04/15/2025 2:31 PM EST) Anatomical Region Laterality Modality Ultrasound 04/15/2025 3:42 PM EST Narrative 04/15/2025 4:53 PM EST INDICATION: Left submandibular lesion/mass. In office biopsy non diagnostic, necrotic tissue. TECHNIQUE: Written informed consent obtained. Patient placed supine on the ultrasound stretcher. Multiple images obtained of the left submandibular mass. After review of the images, the appropriate area of skin was localized under real-time ultrasound. This region was draped and prepped in the usual sterile fashion. 2% buffered lidocaine was used as a local anesthetic. Under real-time ultrasound guidance, needle biopsy was performed using FNA and coring technique. A total of 2 FNA passes and 3 13 mm core passes were obtained. Preliminary pathology largely necrotic with some scattered inflammatory cells. Histology of core biopsies pending. If nondiagnostic, consider excisional biopsy. The patient tolerated the procedure well and left the department in stable condition without immediate complications. CONCLUSION: Ultrasound-guided biopsy of left submandibular mass as described above. -------- FINAL REPORT -------- Dictated By: Akua Damico Dictated Date: 04/15/2025 15:42 ET Assigned Physician: Camilla Dickson Reviewed and Electronically Signed By: Camilla Dickson Signed Date: 04/15/2025 16:53 ET Workstation ID: [id number] Transcribed By: Self Edit Transcribed Date: 04/15/2025 15:46 ET Resident/PA/CASH APPLICATION CLERK: Akua Damico Procedure Note Camilla Dickson MD - 04/15/2025 INDICATION: Left submandibular lesion/mass. In office biopsy nondiagnostic, necrotic tissue. TECHNIQUE: Written informed consent obtained. Patient placed supine on theultrasound stretcher. Multiple images obtained of the left submandibularmass. After review of the images, the appropriate area of skin waslocalized under real-time ultrasound. This region was draped and preppedin the usual sterile fashion. 2% buffered lidocaine was used as a localanesthetic. Under real-time ultrasound guidance, needle biopsy wasperformed using FNA and coring technique. A total of 2 FNA passes and 3 13mm core passes were obtained. Preliminary pathology largely necrotic withsome scattered inflammatory cells. Histology of core biopsies pending. Ifnondiagnostic, consider excisional biopsy. The patient tolerated theprocedure well and left the department in stable condition withoutimmediate complications. CONCLUSION: Ultrasound-guided biopsy of left submandibular mass as described above. -------- FINAL REPORT -------- Dictated By: Akua Damico Dictated Date: 04/15/2025 15:42 ET Assigned Physician: Camilla Dickson Reviewed and Electronically Signed By: Camilla Dickson Signed Date: 04/15/2025 16:53 ET Workstation ID: [id number] Transcribed By: Self Edit Transcribed Date: 04/15/2025 15:46 ET Resident/PA/CASH APPLICATION CLERK: Akua Damico us Pauline Barton MD IMG US PROCEDURES Final Resu lt * Tissue exam (04/15/2025 1:47 PM EST) Final Diagnosis Salivary Gland, Left submandibular gland mass, core biopsy: Fibrous tissue with chronic inflammation and large areas of necrosis. No dysplasia or neoplasia identified. See comment. 04/17/2025 4:15 PM [facility] at 1615 EST Comment While no malignant cells are identified, the etiology of the inflammation and necrosis is not readily identifiable. Correlation with clinical and imaging is recommended with excisional biopsy if indicated. 04/17/2025 4:15 PM [facility] Gross Description A. Salivary Gland, Left submandibular gland mass: Labeled left submandibular . Received in formalin are four cylindrical yellow-white soft tissue cores, ranging from 0.1 x 0.1 cm to 0.3 x 0.1 cm, which are wrapped in paper and submitted in toto in two cassettes, two pieces each, x 2 with 10 unstained slides between levels. Tissue is saved in RPMI for potential flow cytometry pending review of H&E slides. Following review of initial slides, the tissue in RPMI is submitted in cassette 3. RAIN 04/17/2025 4:15 PM [facility] Intraoperative Consultation A. Salivary Gland, Left submandibular gland mass: Predominately necrotic with scattered inflammatory cells. Dr. Mcmahan communicated to Akua Damico 04/15/2025 2:41 PM EST 04/17/2025 4:15 PM [facility] Disclaimer Unless otherwise specified, all tissue is 10% NB formalin fixed and paraffin embedded. 04/17/2025 4:15 PM [facility] Tissue Salivary gland structure / Unknown 04/15/2025 1:47 PM EST 04/15/2025 2:28 PM EST us Pauline Barton MD LAB PATHOLOGY ORDERABLES Fin al Result [facility] [address] [place] [address], * Fine needle aspiration (04/15/2025 1:45 PM EST) Final Diagnosis A. Salivary Gland, Left submandibular, fine needle aspiration, (ThinPrep, direct smears, cell block): Predominantly necrosis with scattered inflammatory cells. No neoplasia identified; please also see concurrent core biopsy. 04/17/2025 4:16 PM EST [facility] at 1616 EST Specimen A Adequacy Satisfactory for evaluation 04/17/2025 4:16 PM EST [facility] Comment:This is an appended report. These results have been appended to a previously preliminary verified report. Gross Description A. Salivary Gland, Left submandibular gland mass: Received in saline is 30 ml of clear fluid. One ThinPrep and one cell block are made. Also received are two air dried direct smears, and two alcohol fixed smears. Cell block placed in formalin at 1000, total formalin fixation time is 11 hours. hs 4 total direct smears: 2 acid-alcohol fixed + 2 air dried + diff kwik stained for adequacy. 1 needle rinse in RPMI (combined with 1 core) + 2nd needle rinse in saline. Per DG, hold flow at [facility] pending further case review 04/15/25 Saline split into 1 cytolyte tube + 1 formalin tube 04/15/25 04/17/2025 4:16 PM EST [facility] Intraoperative Consultation A. Salivary Gland, Left submandibular gland mass: Predominately necrotic. Few acute inflammatory cells present. Dr. Mcmahan communicated to Akua Damico 04/15/2025 2:39 PM EST 04/17/2025 4:16 PM EST [facility] Disclaimer Unless otherwise specified, all tissue is 10% NB formalin fixed and paraffin embedded. Technical cytopathology services provided by [facility], at [address] [place] [address] (CLIA # [id number]/Ramez Sweeney MD, Young Adult Librarian.) 04/17/2025 4:16 PM EST [facility] Fine Needle Aspirate Salivary gland structure / Unknown 04/15/2025 1:45 PM EST 04/15/2025 2:28 PM EST us Pauline Barton MD LAB PATHOLOGY ORDERABLES Fin al Result [facility] [address] [place] [address], [place] [phone] * CT Neck Soft Tissue w Contrast (04/12/2025 9:22 AM EST) Anatomical Region Laterality Modality Head and Neck Computed Tomogra phy 04/12/2025 10:0 5 AM EST Impressions 04/12/2025 10:24 AM EST Partially cystic mass just anterior to left submandibular gland with nonspecific imaging characteristics. Benign and malignant processes are possible. Consider tissue sampling. -------- FINAL REPORT -------- Dictated By: ELIEZER BELL Dictated Date: 04/12/2025 10:05 ET Assigned Physician: ELIEZER BELL Reviewed and Electronically Signed By: ELIEZER BELL Signed Date: 04/12/2025 10:24 ET Workstation ID: [id number] Transcribed By: Self Edit Transcribed Date: 04/12/2025 10:16 ET Narrative 04/12/2025 10:24 AM EST PROCEDURE: CT neck INDICATION: neoplasm of submandibular gland; TECHNIQUE: CT neck with intravenous administration of 90cc ISOVUE 370. Multi planar reformats were created and interpreted. The examination was performed utilizing dose reduction techniques. COMPARISON: Ultrasound 03/25/2025 FINDINGS: There is a centrally cystic mass anterior to the left submandibular gland measuring 24 x 15 mm. The parotid and submandibular glands are within normal limits. Multinodular thyroid, not well assessed by CT. No surface mucosal lesion along the aerodigestive tract. No peritonsillar or retropharyngeal fluid collections. Parapharyngeal spaces are clear. Visualized intracranial structures, orbits, sinuses, and mastoids are clear. There is approximately 50% stenosis at the right proximal cervical internal carotid artery with less than 50% stenosis of the left proximal cervical internal carotid artery. Major vascular structures opacify normally with contrast. Postoperative changes are seen in the right lung. No suspicious pulmonary nodules are noted at the lung apices Paraspinal muscles are within normal limits. No suspicious lytic or blastic lesions. Degenerative changes seen throughout the cervical spine. Procedure Note Eliezer Bell MD - 04/12/2025 PROCEDURE: CT neck INDICATION: neoplasm of submandibular gland; TECHNIQUE: CT neck with intravenous administration of 90cc ISOVUE 370.Multi planar reformats were created and interpreted. The examination wasperformed utilizing dose reduction techniques. COMPARISON: Ultrasound 03/25/2025 FINDINGS: There is a centrally cystic mass anterior to the left submandibular glandmeasuring 24 x 15 mm. The parotid and submandibular glands are within normal limits. Multinodular thyroid, not well assessed by CT. No surface mucosal lesion along the aerodigestive tract. No peritonsillaror retropharyngeal fluid collections. Parapharyngeal spaces are clear. Visualized intracranial structures, orbits, sinuses, and mastoids areclear. There is approximately 50% stenosis at the right proximal cervicalinternal carotid artery with less than 50% stenosis of the left proximalcervical internal carotid artery. Major vascular structures opacifynormally with contrast. Postoperative changes are seen in the right lung. No suspicious pulmonarynodules are noted at the lung apices Paraspinal muscles are within normal limits. No suspicious lytic orblastic lesions. Degenerative changes seen throughout the cervicalspine. IMPRESSION: Partially cystic mass just anterior to left submandibular gland withnonspecific imaging characteristics. Benign and malignant processes arepossible. Consider tissue sampling. -------- FINAL REPORT -------- Dictated By: ELIEZER BELL Dictated Date: 04/12/2025 10:05 ET Assigned Physician: ELIEZER BELL Reviewed and Electronically Signed By: ELIEZER BELL Signed Date: 04/12/2025 10:24 ET Workstation ID: [id number] Transcribed By: Self Edit Transcribed Date: 04/12/2025 10:16 ET us Paluine Barton MD IMG CT PROCEDURES Final Resu lt * Hepatitis C antibody (04/03/2025 12:34 PM EST) [facility] Hepatitis C Antibody Negative Negative 04/03/2025 6:02 PM EST [facility] Blood Venous blood specimen / Unknown Venipuncture / Unknown 04/03/2025 12:34 PM EST 04/03/2025 12:34 PM EST us Ángel MCGRAW LAB BLOOD ORDERABLES Final Res ult [facility] [address] [place] [address], [place] [phone] * (ABNORMAL) CBC auto differential (04/03/2025 12:34 PM EST) Only the most recent of3 resultswithin the time period is included. [facility] WBC 13.3(H) 4.8 - 10.8 K/mcL LAB HEMETOLOGY METHOD 04/03/2025 1:50 PM [facility] RBC 4.80 3.80 - 4.80 M/mcL LAB HEMETOLOGY METHOD 04/03/2025 1:50 PM [facility] Hemoglobin 15.1 11.5 - 16.0 g/dL LAB HEMETOLOGY METHOD 04/03/2025 1:50 PM [facility] Hematocrit 44.9 35.0 - 47.0 % LAB HEMETOLOGY METHOD 04/03/2025 1:50 PM [facility] MCV 93.5 79.0 - 98.0 FL LAB HEMETOLOGY METHOD 04/03/2025 1:50 PM [facility] MCH 31.5 27.0 - 32.0 pcg LAB HEMETOLOGY METHOD 04/03/2025 1:50 PM [facility] MCHC 33.6 32.0 - 37.0 g/dL LAB HEMETOLOGY METHOD 04/03/2025 1:50 PM [facility] RDW 12.8 11.0 - 15.0 % LAB HEMETOLOGY METHOD 04/03/2025 1:50 PM [facility] Platelets 362 130 - 400 K/mcL LAB HEMETOLOGY METHOD 04/03/2025 1:50 PM [facility] MPV 9.2 7.0 - 11.0 FL LAB HEMETOLOGY METHOD 04/03/2025 1:50 PM [facility] NRBC 0.0 <1.0 % LAB HEMETOLOGY METHOD 04/03/2025 1:50 PM [facility] NRBC Absolute 0.00 <0.10 K/mcL LAB HEMETOLOGY METHOD 04/03/2025 1:50 PM [facility] Neutrophils Relative 74.5 % LAB HEMETOLOGY METHOD 04/03/2025 1:50 PM [facility] Lymphocytes Relative 17.9 % LAB HEMETOLOGY METHOD 04/03/2025 1:50 PM [facility] Monocytes Relative 6.0 % LAB HEMETOLOGY METHOD 04/03/2025 1:50 PM [facility] Eosinophils Relative 0.6 % LAB HEMETOLOGY METHOD 04/03/2025 1:50 PM [facility] Basophils Relative 0.5 % LAB HEMETOLOGY METHOD 04/03/2025 1:50 PM [facility] Immature Granulocytes Relative 0.5 % LAB HEMETOLOGY METHOD 04/03/2025 1:50 PM [facility] Neutrophils Absolute 9.93(H) 1.50 - 7.00 K/mcL LAB HEMETOLOGY METHOD 04/03/2025 1:50 PM [facility] Lymphocytes Absolute 2.39 1.00 - 5.00 K/mcL LAB HEMETOLOGY METHOD 04/03/2025 1:50 PM EST [facility] Monocytes Absolute 0.80 0.20 - 1.00 K/mcL LAB HEMETOLOGY METHOD 04/03/2025 1:50 PM EST [facility] Eosinophils Absolute 0.08 0.00 - 0.50 K/[facility] LAB HEMETOLOGY METHOD 04/03/2025 1:50 PM EST [facility] Basophils Absolute 0.07 0.00 - 0.20 K/[facility] LAB HEMETOLOGY METHOD 04/03/2025 1:50 PM EST [facility] Immature Granulocytes Absolute 0.07(H) 0.00 - 0.03 K/[facility] LAB HEMETOLOGY METHOD 04/03/2025 1:50 PM EST [facility] Blood Venous blood specimen / Unknown Venipuncture / Unknown 04/03/2025 12:34 PM EST 04/03/2025 12:34 PM EST us Ángel MCGRAW LAB BLOOD ORDERABLES Final Res ult [facility] [address] [place] [address], [place] [phone] * C-reactive protein (04/03/2025 12:34 PM EST) Only the most recent of2 resultswithin the time period is included. C-Reactive Protein <0.50 <=0.50 mg/dL 04/03/2025 5:32 PM EST [facility] Blood Venous blood specimen / Unknown Venipuncture / Unknown 04/03/2025 12:34 PM EST 04/03/2025 12:34 PM EST us Ángel MCGRAW LAB BLOOD ORDERABLES Final Res ult [facility] [address] [place] [address], [place] [phone] * Hemoglobin A1c (04/03/2025 12:34 PM EST) Hemoglobin A1C 5.8 <6.5 % LAB CHEMISTRY METHOD 04/03/2025 7:36 PM EST [facility] Mean Bld Glu Estim. 120 mg/dL LAB CHEMISTRY METHOD 04/03/2025 7:36 PM EST [facility] Blood Venous blood specimen / Unknown Venipuncture / Unknown 04/03/2025 12:34 PM EST 04/03/2025 12:34 PM EST Ángel MCGRAW LAB BLOOD ORDERABLES Final Res ult [facility] [address] [place] [address], * US Head Neck Soft Tissue (03/25/2025 [...] Signed Date: 03/25/2025 15:08 ET Workstation ID: [id number] Transcribed By: Self Edit Transcribed Date: 03/25/2025 [...] Signed Date: 03/25/2025 15:08 ET Workstation ID: [id number] Transcribed By: Self Edit Transcribed Date: 03/25/2025 14:44 ET Ángel MCGRAW IMG US PROCEDURES Final Result * External clinical lab (03/11/2025) Only the most recent of2 resultswithin the time period is included. us Provider [facility] LAB BLOOD ORDERABLES [facility] Result * MR Brain wo Contrast (03/01/2025 [...] Signed Date: 03/01/2025 15:26 ET Workstation ID: [id number] Transcribed By: Self Edit Transcribed Date: 03/01/2025 [...] Signed Date: 03/01/2025 15:26 ET Workstation ID: [id number] Transcribed By: Self Edit Transcribed Date: 03/01/2025 15:19 ET us Nataly MCGRAW IMG MRI PROCEDURES Final R esult * Treponema pallidum antibody with reflex to RPR and particle agglutination (02/07/2025 9:38 AM EDT) T. Pallidum Antibodies Negative Negative LAB CHEMISTRY METHOD 02/07/2025 2:15 PM EDT [facility] Blood Venous blood specimen / Unknown Venipuncture / Unknown 02/07/2025 9:38 AM EDT 02/07/2025 9:38 AM EDT us Nataly MCGRAW LAB BLOOD ORDERABLES Final Result [facility] [address] [place] [address], [place] [phone] * Thyroid stimulating hormone with reflex to free t4 and free t3 (02/07/2025 9:38 AM EDT) TSH 0.57 0.40 - 4.00 mcIU/mL LAB CHEMISTRY METHOD 02/07/2025 2:03 PM EDT [facility] Blood Venous blood specimen / Unknown Venipuncture / Unknown 02/07/2025 9:38 AM EDT 02/07/2025 9:38 AM EDT Nataly MCGRAW LAB BLOOD ORDERABLES Final Result Performing Organization Address [facility]/ZIP Co de Phone Number [facility] [address] [place] [address], [place] [phone] * Vitamin D 25 hydroxy (02/07/2025 9:38 AM EDT) [facility] Vit D, 25-Hydroxy 41.7 30.0 - 80.0 ng/mL LAB CHEMISTRY METHOD 02/07/2025 2:03 PM EDT [facility] Blood Venous blood specimen / Unknown Venipuncture / Unknown 02/07/2025 9:38 AM EDT 02/07/2025 9:38 AM EDT Nataly MCGRAW LAB BLOOD ORDERABLES Final Result Performing Organization Address [facility]/ZIP Co de Phone Number [facility] [address] [place] [address], [place] [phone] * Sedimentation rate (02/07/2025 9:38 AM EDT) [facility] Sed Rate 7 0 - 30 mm/hr LAB HEMETOLOGY METHOD 02/07/2025 12:04 PM EDT [facility] Blood Venous blood specimen / Unknown Venipuncture / Unknown 02/07/2025 9:38 AM EDT 02/07/2025 9:38 AM EDT Nataly MCGRAW LAB BLOOD ORDERABLES Final Result [facility] [address] [place] [address], [place] [phone] * (ABNORMAL) Folate (02/07/2025 9:38 AM EDT) [facility] Folate >20.0(H) 2.8 - 17.0 ng/ml LAB CHEMISTRY METHOD 02/07/2025 1:02 PM EDT [facility] Blood Venous blood specimen / Unknown Venipuncture / Unknown 02/07/2025 9:38 AM EDT 02/07/2025 9:38 AM EDT Nataly MCGRAW LAB BLOOD ORDERABLES Final Result Performing Organization Address [facility]/ZIP Co de Phone Number [facility] [address] [place] [address], [place] [phone] * (ABNORMAL) Vitamin B12 (02/07/2025 9:38 AM EDT) [facility] Vitamin B-12 1,212(H) 250 - 900 pcg/mL LAB CHEMISTRY METHOD 02/07/2025 1:02 PM EDT [facility] Blood Venous blood specimen / Unknown Venipuncture / Unknown 02/07/2025 9:38 AM EDT 02/07/2025 9:38 AM EDT Nataly MCGRAW LAB BLOOD ORDERABLES Final Result Performing Organization Address City/[facility]/ZIP Co de Phone Number [facility] [address] [place] [address], [place] [phone] * (ABNORMAL) Comprehensive metabolic panel (02/07/2025 9:38 AM EDT) [facility] Sodium 141 133 - 145 mmol/L LAB CHEMISTRY METHOD 02/07/2025 1:02 PM EDT [facility] Potassium 3.8 3.5 - 5.5 mmol/L LAB CHEMISTRY METHOD 02/07/2025 1:02 PM [facility] Chloride 106 96 - 110 mmol/L LAB CHEMISTRY METHOD 02/07/2025 1:02 PM [facility] CO2 28 21 - 32 mmol/L LAB CHEMISTRY METHOD 02/07/2025 1:02 PM [facility] Anion Gap 7 3 - 11 LAB CHEMISTRY METHOD 02/07/2025 1:02 PM [facility] Glucose 110(H) 70 - 100 mg/dL LAB CHEMISTRY METHOD 02/07/2025 1:02 PM [facility] BUN 17 5 - 25 mg/dL LAB CHEMISTRY METHOD 02/07/2025 1:02 PM [facility] Creatinine 0.97 0.50 - 1.10 mg/dL LAB CHEMISTRY METHOD 02/07/2025 1:02 PM [facility] eGFR 62 >=60 mL/min/1. 73m2 LAB CHEMISTRY METHOD 02/07/2025 1:02 PM [facility] Comment:Calculation based on the Chronic Kidney Disease Epidemiology Collaboration (CKD-EPI) equation refit without adjustment for race. BUN/Creatinine Ratio 17.5 LAB CHEMISTRY METHOD 02/07/2025 1:02 PM [facility] Calcium 9.5 8.5 - 10.5 mg/dL LAB CHEMISTRY METHOD 02/07/2025 1:02 PM [facility] AST (SGOT) 25 10 - 42 unit/L LAB CHEMISTRY METHOD 02/07/2025 1:02 [facility] ALT (SGPT) 31 10 - 60 unit/L LAB CHEMISTRY METHOD 02/07/2025 1:02 PM [facility] Alkaline Phosphatase 92 42 - 121 unit/L LAB CHEMISTRY METHOD 02/07/2025 1:02 PM [facility] Total Protein 6.6 6.0 - 8.0 g/dL LAB CHEMISTRY METHOD 02/07/2025 1:02 PM EDT [facility] Albumin 3.8 3.2 - 5.0 g/dL LAB CHEMISTRY METHOD 02/07/2025 1:02 PM EDT [facility] Total Bilirubin 0.4 0.0 - 1.4 mg/dL LAB CHEMISTRY METHOD 02/07/2025 1:02 PM EDT [facility] Blood Venous blood specimen / Unknown Venipuncture / Unknown 02/07/2025 9:38 AM EDT 02/07/2025 9:38 AM EDT Nataly MCGRAW LAB BLOOD ORDERABLES Final Result [facility] [address] [place] [address], * Lipid panel (06/30/2023) LDL/HDL Ratio 3 [...] classified as having normal bone density. The [facility] Department of Internal Medicine recommends [...] beclassified as having normal bone density. The [facility] Department of Internal Medicine recommendsusing [...] PM EDT Narrative 09/09/2021 11:03 AM EDT [facility] Diagnostic Imaging Department [address] [place] [address] Patient: BRITTANY GAINES /Age/Sex: 1950 - 71 - F Unit#: [id number] Location/Status: [facility]/REG CLI Mnemonic/Ordering Site: [facility] Ordering Physician: FORREST ALBARRAN MD CT Lung Screening Low Dose - 09/08/21 - 1187 ADDENDUM Lung RADS category 4A, probably suspicious Addendum Dictated By: TITO VINES MD Addendum Esigned by: TITO VINES MD Dictated: 09/09/2103/23/1057 Signed:09/09/21 1107 ORIGINAL REPORT History: 71-year-old female current smoker [...] in 3-6 months recommended to document stability. [id number] G9637, G9557, G9551 Dictating Physician: TITO VINES MD Electronically Signed by: TITO VINES MD Dic Date/Time: 09/08/21 184 Sign date/Time: 09/08/21 190 Procedure Note Tito Vines MD - 04/21/2022 [facility] Diagnostic Imaging Department [address] [place] [id number] Patient: BRITTANY GAINES /Age/Sex: 1950 - 71 - F Unit#: [id number] Location/Status: [facility]/REG CLI Mnemonic/Ordering Site: [facility] Ordering Physician: FORREST ALBARRAN MD [...] CT in 3-6 months recommended to documentstability. [id number] G9637, G9557, G9551 Dictating Physician: TITO VINES MD Electronically Signed by: TITO VINES MD Dic Date/Time: 09/08/21 1849 Sign date/Time: 09/08/21 1900 Forrest Albarran MD IM CT PROCEDURES Final Result * Colonoscopy (03/06/2020) Colonoscopy no interpretation , abstracted Anatomical Region Laterality Modality Other Historical Provider HEALTH MAINTENANCE Final Result from Last 3 Months or Most Recently Relevant to Health Maintenance Insurance MEDICARE [facility] Advance Directives Documents on File Type Date Recorded Patient Investor Relations Director Expl anation Health Care Decision (hx) 11/19/2021 AD BLOOM DIRECTIVE Health Care Decision (hx) 11/19/2021 AD BLOOM DIRECTIVE Health Care Decision (hx) 11/19/2021 AD BLOOM DIRECTIVE Health Care Decision (hx) 11/19/2021 AD BLOOM DIRECTIVE Health Care Decision (hx) 11/19/2021 AD BLOOM DIRECTIVE Health Care Decision (hx) 11/19/2021 AD BLOOM DIRECTIVE Health Care Decision (hx) 11/19/2021 AD BLOOM DIRECTIVE * Full Code - Confirmed (Latest Code Status on File) Date Activated Date Inactivated Comments 04/03/2025 12:08 PM This code sta tus was ascertained in the following way: Code status discussion: discussion with patient To update the patient's code status, place a code status order. Do not modify or discontinue any currently active code status orders. Care Teams Eligibility And Occupancy Interviewer Relationship Specialty Start Date End Date Maria L Tabor MD [address] [place] [id number] PCP - General Internal Medicine 01/02/25
--- OUTSIDE RECORDS SUMMARY | 2025-04-29 15:38 | XMS_ITS | Clinical Summary ---
Author Organization [facility] Address [address] [place] [address] Care Team Providers Care Grid Inspector Name Role Phone Unknown Primary Care Provider [...] MEDICARE PART A & B Care Teams Grid Inspector Relationship Specialty Start Date End Date Unknown Unknow Provider Address PCP - General 05/02/22
== END 2025-04-29 14:26 | disposition home or self-care (01) ==
LOC: HO.HOP 13:31
PROVIDERS: PCP Internal Medicine; Visit Provider Clinical Nurse Specialist Psychiatric/Mental Health
DX: F33.1 Major depressive disorder, recurrent, moderate (principal); F41.1 Generalized anxiety disorder; F43.21 Adjustment disorder with depressed mood; R29.6 Repeated falls; R53.1 Weakness
CPT/HCPCS: 99215

== ENCOUNTER → 2025-04-29 13:31 | Outpatient (BNVA) | payer MEDICARE, OTHER, SELFPAY | PROVIDERS: PCP Internal Medicine; Visit Provider Clinical Nurse Specialist Psychiatric/Mental Health | DX: F33.1 Major depressive disorder, recurrent, moderate (principal); F41.1 Generalized anxiety disorder; F43.21 Adjustment disorder with depressed mood; R29.6 Repeated falls; R53.1 Weakness | CPT/HCPCS: 99212 ==